=== PATIENT | male | born 1935 | race Caucasian/White ===

== ENCOUNTER 2018-08-24 17:37 | Inpatient (IN) | payer MEDICARE ==
[~2018-08-24] VITALS: Ht 182.9 cm; Wt 44.4 kg
--- NOTE | ~2018-08-24 | CN ---
PATIENT NAME:HARRY GOLDSMITH MEDICAL RECORD: [id number] : 39 LOCATION:. D.0 ADMIT DATE: 08/25/18 ACCOUNT: [id number] CONSULTING PHYSICIAN: FROILAN MCBRIDE MD REFERRING PHYSICIAN: ALFONSO LOTT MD DATE OF CONSULTATION: 08/25/2018 DIAGNOSES: 1. Syncope. 2. Bronchitis/pneumonia. 3. Shortness of breath. 4. Paroxysmal atrial fibrillation. 5. Sick sinus syndrome, status post pacemaker. 6. Coronary artery disease and previous cardiac stent. 7. Valvular heart disease, aortic stenosis. 8. Hypertension. 9. Hyperlipidemia. HISTORY OF PRESENT ILLNESS: Mr. Goldsmith is well known to us. It appears that yesterday he went to a walk-in clinic for a bronchitis. When he got home, he felt that he could not get out of the car. He was found with a right hemiparesis and right facial droop by his family, this has since resolved. He possibly had an episode of syncope in conjunction with this. His pacemaker was interrogated. He had no dysrhythmias yesterday. Today, he went out of rhythm for atrial fibrillation, but he has not received his sotalol last night or today. His sotalol though generally keeps him in rhythm. He is anticoagulated on Xarelto for the atrial fibrillation as well. He has a history of coronary artery disease, previous coronary stenting, none in the past few years. He is not having any anginal symptomatology. He as well has valvular heart disease with mild aortic stenosis, on the last echo and preserved LV function. PHYSICAL EXAMINATION: GENERAL APPEARANCE: Well-nourished, well-developed, appears stated age. Level of distress, comfortable. PSYCHIATRIC: Mental status, alert, normal affect. Orientation, oriented to time, place and person. EYES: Lids and conjunctiva, noninjected. No discharge, no pallor. ENT: Lips, teeth, gums, normal dentition. Oropharynx, no cyanosis, no pallor. NECK: Carotid arteries, bilateral normal upstroke, no bruits, no thrills. JUGULAR VEINS: No jugular venous pressure or distention. CERVICAL LYMPH NODES: Nontender, nonenlarged. THYROID: Not enlarged. Nontender. No nodules. LUNGS: Respiratory effort, unlabored. CHEST: Normal curvature. No thoracic deformity. No chest wall tenderness. Percussion, resonant. Auscultation, clear. No wheezes, no rales, no rhonchi. CARDIOVASCULAR: Precordial exam, nondisplaced. No heaves or pericardial thrills. Rate and rhythm, regular. Heart sounds, normal S1, normal S2. No S3, no gallop, no rub. Systolic murmur, not heard. Diastolic murmur, not heard. EXTREMITIES: No cyanosis, no edema. Peripheral pulses, full and equal in all extremities, except as noted. No bruits appreciated. ABDOMEN: Soft, nondistended. Normal aorta. No bruit. Nontender. No masses. Liver, nontender, no hepatomegaly. Spleen, nontender, no splenomegaly. MUSCULOSKELETAL: No joint tenderness. No joint swelling. No erythema. NEUROLOGICAL: Normal gait, normal strength, normal tone. SKIN: Warm and dry. CONSULT REPORT [id number] HARRY GOLDSMITH OVERALL IMPRESSION: It sounds like he had a CVA or TIA. It does not sound like this is cardiac in etiology. We will get an echocardiogram to rule out a cardiac source of neurologic emboli. No other cardiac workup or treatment is necessary at this time. TRANSINT:[id number] Voice Confirmation ID: [id number] DOCUMENT ID: [id number] FROILAN MCBRIDE MD at 1859 CC: [id number] DICTATION DATE: 08/25/18 1430 CONTROLS DESIGN ENGINEER: 08/25/18 1459 DIS IN 08/26/18 [place] [id number] [place] [id number]
--- NOTE | ~2018-08-24 | EC ---
PATIENT:HARRY GOLDSMITH DATE OF SERVICE: 08/24/18 SEX: M MEDICAL RECORD: [id number] DATE OF : 39 LOCATION:D.M2 D.211 AGE OF PATIENT: 83 ADMISSION DATE: 08/25/18 REFERRING PHYSICIAN: INTERPRETING PHYSICIAN: FROILAN LEVI MD ECHOCARDIOGRAM REPORT ECHO CHARGES 5 ECHO LIMITED Date: 08/25/18 CLINICAL DIAGNOSIS: CHF ECHOCARDIOGRAPHIC MEASUREMENTS (adult normal given) AC root (d.<3.7cm) cm LV Septum d (<1.2 cm> cm Valve Excursion cm LV Septum (systole) cm Left Atria (s.<4.0cm> 4.6 cm LVPW d(<1.2cm) cm RV (d.<2.3cm) 4.5 cm LVPW (sytole) cm LV diastole(<5.6CM) 4.0 cm MV E-F(>70mm/sec) cm LV systole 3.0 cm LVOT Diameter 1.7 cm MV exc.(>10mm) cm Est.ejection fraction (50-75%) % DOPPLER: LVIT cm/sec A 38.0 cm/sec E 96.0 cm/sec LA cm/sec RVSP 29 mmHg LVOT 101 cm/sec AOP1/2T m/s Asc. Ao 346 cm/sec RVOT cm/sec RA cm/sec PA cm/sec AV Gradient Peak 47.98mmHg AV Mean 24.16mmHg AV Area 1.2 cm MV Gradient Peak 9.14 mmHg MV Mean 2.52 mmHg MV Area cm COMMENTS: Packer Inspector: Tremayne EASTMAN Acoustical Installer: 1 Dr. Levi TAPE# PACS Pericardial Effusion N DATE OF SERVICE: 08/25/2018 ECHOCARDIOGRAM DATE OF SERVICE: 08/25/2018 FINDINGS: 1. Left ventricular chamber size is within normal limits. Left ventricular systolic function is normal. Overall ejection fraction is estimated at 55% to 60%. ECHOCARDIOGRAM REPORT [id number] HARRY GOLDSMITH 2. Left atrium is enlarged at 4.6 cm. Right atrium and right ventricle chamber sizes are as well mildly dilated. 3. Valvular structures: Aortic valve demonstrates moderate calcific aortic stenosis, the valve area calculates 1.2 cm where there is gradient of 48-mm across the valve. The remaining valvular structures have normal structure and motion. 4. Doppler interrogation elsewise reveals auso-wm-egdphyeb mitral regurgitation, mild tricuspid regurgitation, no other valvular insufficiency or stenosis. Pulmonary systolic pressure is estimated at 29 mmHg. 5. There is no evidence of pericardial effusion or left ventricular thrombus. 6. No cardiac source of neurologic emboli. TRANSINT:[id number] Voice Confirmation ID: [id number] DOCUMENT ID: [id number] FROILAN LEVI MD at 1859 CC: [id number] DICTATION DATE: 08/25/18 1433 GYRO MECHANIC: 08/25/18 1456 DIS IN 08/26/18 [facility] [address] [place] [id number]
[~2018-08-24 17:37] MED LIST: ACCUPRIL5 MG PO; BAYER CHEWABLE81 MG PO; BETAPACE 120 M120 MG PO; CARAFATE1 G PO; CRESTOR; DEMADEX20 MG PO; DEXILANT60 MG PO; EPIKLOR20 MEQ PO; FISH OIL 500 MG1 CAP PO; GLUCOPHAGE1000 MG PO; GLUCOTROL 5 MG T5 MG PO; IMDUR30 MG PO; K-TAB10 MEQ PO; LIPITOR10 MG PO; NEURONTIN 300300 MG PO; NORCO 10/325 TA1 TA1 PO; PLAVIX75 MG PO; RED YEAST RICE600 MG PO; SAW PALMETTO450 MG PO; TOPROL XL25 MG PO; XARELTO20 MG
[2018-08-24 18:22] LABS: BASOPHILS 0.3 % (0-2); EOSINOPHILS 0.5 % (0-7); HEMATOCRIT 37.7 % (42.0-54.0); HEMOGLOBIN 12.9 g/dL (13.5-17.5); IMMATURE GRANULOCYTES 0.2 % (0-5); LYMPHOCYTES 14.8 % (15-50); MCH 30.1 pg (26.0-34.0); MCHC 34.2 g/dL (31.0-37.0); MCV 88.1 fL (80.0-100.0); MEAN PLATELET VOLUME 10.4 fL (7.4-10.4); NEUTROPHILS 72.2 % (40-80); PLATELET COUNT 121 10x3/uL (130-400); RBC 4.28 10x6/uL (4.20-6.10); RDW 13.4 % (11.5-14.5); WBC 6.6 10x3/uL (4.8-10.8)
[2018-08-24 18:32] LABS: ALBUMIN 3.7 g/dL (3.4-5.0); ALKALINE PHOSPHATASE 171 U/L (46-116); ALT (SGPT) 26 U/L (10-68); BILIRUBIN - TOTAL 1.16 mg/dL (0.2-1.3); CALC OSMOLALITY 269 mosm/kg (275-300); CALCIUM 9.1 mg/dL (8.5-10.1); CARBON DIOXIDE 24.7 mmol/L (21.0-32.0); CHLORIDE - SERUM 98 mmol/L (98-107); CREATININE - SERUM 1.3 mg/dL (0.6-1.3); GLUCOSE 179 mg/dL (74-106); POTASSIUM - SERUM 4.1 mmol/L (3.5-5.1); PROTEIN - SERUM 7.5 g/dL (6.4-8.2); SODIUM 132 mmol/L (136-145); UREA NITROGEN 14 mg/dL (7-18); eGFR NON AFRICAN AMERICAN 56 mL/min (90-120)
[2018-08-24 18:42] LABS: AMYLASE - SERUM 41 U/L (25-115); CKMB 0.7 U/L (0.0-3.6); CREATINE KINASE 84 UL (21-232); LIPASE 123 U/L (73-393); TROPONIN-I 0.019 ng/mL (0.000-0.060)
[2018-08-24 19:05] LABS: APPEARANCE CLEAR (CLEAR); BILIRUBIN NEGATIVE (NEGATIVE); COLOR DK YELLOW (YELLOW); GLUCOSE 50 mg/dL (NEGATIVE); KETONE SMALL mg/dL (NEGATIVE); NITRITE NEGATIVE (NEGATIVE); PROTEIN TRACE mg/dL (NEGATIVE); UROBILINOGEN NORMAL (NORMAL)
[2018-08-24 19:14] LABS: BACTERIA FEW /hpf (NONE SEEN); EPITHELIAL CELLS OCC /hpf (0-5); HYALINE CAST RARE /lpf (NONE SEEN); MUCUS <1+ /lpf (NONE SEEN); RED CELLS - URINE 0-5 /hpf (0-5); WHITE CELLS - URINE 0-5 /hpf (0-5)
[2018-08-24] MEDS ORDERED: CRESTOR5 MG PO (20:35)
[2018-08-24 20:36] VITALS: BP 157/69; BMI 35.3
[2018-08-24 23:12] VITALS: BP 148/70
[2018-08-25 00:11] LABS: TROPONIN-I 0.025 ng/mL (0.000-0.060)
[2018-08-25 04:00] VITALS: BP 135/68
[2018-08-25 07:12] LABS: CKMB 2.7 U/L (0.0-3.6)
[2018-08-25 07:15] LABS: CREATINE KINASE 251 UL (21-232); TROPONIN-I < 0.017 ng/mL (0.000-0.060)
[2018-08-25 08:00] VITALS: BP 147/74
[2018-08-25 08:25] LABS: CKMB 3.1 U/L (0.0-3.6); CREATINE KINASE 228 UL (21-232)
[2018-08-25 08:29] LABS: TROPONIN-I < 0.017 ng/mL (0.000-0.060)
[2018-08-25 10:07] LABS: HEMATOCRIT 41.1 % (42.0-54.0); HEMOGLOBIN 14.1 g/dL (13.5-17.5); MCH 30.2 pg (26.0-34.0); MCHC 34.3 g/dL (31.0-37.0); MEAN PLATELET VOLUME 10.9 fL (7.4-10.4); PLATELET COUNT 129 10x3/uL (130-400); RBC 4.67 10x6/uL (4.20-6.10); RDW 13.5 % (11.5-14.5); WBC 5.8 10x3/uL (4.8-10.8)
[2018-08-25 10:11] LABS: % SATURATION 8 % (15-55); IRON 32 ug/dl (35-150); TOTAL IRON BIND CAPACITY 363 ug/dl (260-445); UNSAT IRON BIND CAPACITY 331 ug/dl (150-375)
[2018-08-25 10:22] LABS: ANION GAP 18.3 mmol/L (8-16); CALCIUM 9.3 mg/dL (8.5-10.1); CARBON DIOXIDE 22.7 mmol/L (21.0-32.0); CREATININE - SERUM 1.4 mg/dL (0.6-1.3)
[2018-08-25 10:40] LABS: LYMPHOCYTES 4 % (15-50); MONOCYTES 2 % (2-11); NEUTROPHILS 93 % (40-80)
[2018-08-25 10:41] LABS: PLATELET ESTIMATE NORMAL; ROULEAUX 1+
[2018-08-25 12:00] VITALS: BP 139/74
[2018-08-25 14:11] VITALS: Ht 182.9 cm; Wt 44.4 kg
[2018-08-25 14:13] LABS: CKMB 4.3 U/L (0.0-3.6)
[2018-08-25 14:15] LABS: CREATINE KINASE 330 UL (21-232); TROPONIN-I < 0.017 ng/mL (0.000-0.060)
[2018-08-25 16:56] VITALS: BP 138/65
[2018-08-25] MEDS ORDERED: BETAPACE 80 MG80 MG PO (19:01)
[2018-08-25 20:02] LABS: CKMB 6.7 U/L (0.0-3.6); CREATINE KINASE 499 UL (21-232); TROPONIN-I < 0.017 ng/mL (0.000-0.060)
[2018-08-26 05:48] VITALS: BP 125/60
[2018-08-26 05:54] LABS: BASOPHILS 0 % (0-2); EOSINOPHILS 0 % (0-7); HEMATOCRIT 39.9 % (42.0-54.0); HEMOGLOBIN 13.7 g/dL (13.5-17.5); IMMATURE GRANULOCYTES 0.2 % (0-5); LYMPHOCYTES 6.3 % (15-50); MCH 29.8 pg (26.0-34.0); MCHC 34.3 g/dL (31.0-37.0); MCV 86.9 fL (80.0-100.0); MEAN PLATELET VOLUME 10.3 fL (7.4-10.4); MONOCYTES 5.6 % (2-11); NEUTROPHILS 87.9 % (40-80); PLATELET COUNT 137 10x3/uL (130-400); RBC 4.59 10x6/uL (4.20-6.10); RDW 13.3 % (11.5-14.5); WBC 12.6 10x3/uL (4.8-10.8)
[2018-08-26 06:08] LABS: ANION GAP 11.6 mmol/L (8-16); CALCIUM 9.4 mg/dL (8.5-10.1); CARBON DIOXIDE 28.5 mmol/L (21.0-32.0); CREATININE - SERUM 1.4 mg/dL (0.6-1.3); POTASSIUM - SERUM 4.1 mmol/L (3.5-5.1)
[2018-08-26 08:16] LABS: FOLATE (FOLIC ACID) - SERUM 9.6 ng/mL (>3.0)
[2018-08-26] MEDS ORDERED: LEVAQUIN250 MG PO (14:30)
== END 2018-08-26 17:22 | disposition home or self-care (01) | DRG 306 ==
LOC: D.ER 17:37 → D.M3 19:24 → D.EDHOLD 19:24 → OBSVTIME 19:24 → D.M3 19:31 → D.M2 08-25 20:00
PROVIDERS: Family Medicine; Internal Medicine Nephrology
DX: I35.0 Nonrheumatic aortic (valve) stenosis (principal); J18.9 Pneumonia, unspecified organism; E87.1 Hypo-osmolality and hyponatremia; J40 Bronchitis, not specified as acute or chronic; D69.6 Thrombocytopenia, unspecified; I48.0 Paroxysmal atrial fibrillation; I25.10 Atherosclerotic heart disease of native coronary artery without angina pectoris; I10 Essential (primary) hypertension; E78.5 Hyperlipidemia, unspecified; Z95.0 Presence of cardiac pacemaker; Z95.5 Presence of coronary angioplasty implant and graft

== ENCOUNTER 2018-12-18 14:59 | Observation (INO) | payer MEDICARE ==
[~2018-12-18] VITALS: Ht 182.9 cm; Wt 119.1 kg
--- NOTE | ~2018-12-18 | HEMODYNAMI ---
PATIENT:HARRY GOLDSMITH MEDICAL RECORD: [id number] : 39 LOCATION[facility] [facility] [id number] ADMISSION DATE: 12/18/18 Generatedon:12/19/20188:55 Patient name: HRARY GOLDSMITH Patient #: [id number] SSN: : [id number] Date of study: 12/19/2018 Page: Of Hemodynamic Procedure Report Patient Data Patient Demographics Procedure consent was obtained First Name: HARRY Gender: Male Last Name: RUPAL : 1935 [facility] Initial: L Age: 83 year(s) Patient #: [id number] Race: Additional ID: [id number] Contact details [address]: [address] [place] [address] State: [place] City: [place] Zip code: [address] Past Medical History Allergies Allergen Reaction Date Comments Reported Other allergy 12/29/2015 Cefazolin Other allergy 12/19/2018 Cefazolin, Niacin Admission Admission Data Admission Date: 12/18/2018 Admission Time: 14:59 Admit Source: Other Room #: D.2113 Lab Results Lab Result Date: 12/19/2018 Lab Result Time: 4:30 Biochemistry Name Units Result Min Max BUN mg/dl 14 --(--*-)-- 7 18 Creatinine mg/dl 1.1 --(--*-)-- 0.6 1.3 CBC Name Units Result Min Max Hematocrit % 36.4 *-(----)-- 42 54 Hemoglobin g/dl 11.6 *-(----)-- 13.5 17.5 Procedure Procedure Types Cath Procedure Diagnostic Procedure LHC LH w/Coronaries Cardioversion External Sedation Charges Moderate Sedation up to 15 minutes Procedure Description Procedure Date Procedure Date: 12/19/2018 Procedure Start Time: 8:42 Procedure End Time: 8:51 Procedure Staff Name Function Gume Levi MD Performing Physician Manny Rodriges RN Nurse Zain Anderson RT Monitor Letitia Chawla RT Scrub Procedure Data Cath Procedure Fluoroscopy Diagnostic fluoroscopy Total fluoroscopy Time: 1.1 time: 1.1 min min Diagnostic fluoroscopy Total fluoroscopy dose: dose: 401.36 mGy 401.36 mGy Contrast Material Contrast Material Type Amount (ml) Isovue 300 81 Entry Location Entry Primary Successful Side Size Upsize Upsize Entry Closure Braden ccessful Closure Location (Fr) 1 (Fr) 2 (Fr) Remarks Device Remarks Radial Right 6 Fr Mechanical artery Short Compression Estimated blood loss: 10 ml Diagnostic catheters Device Type Used For End Catheter Placement DIAGNOSTIC [place] 110cm 5 Procedure Fr catheter ([id number]) Procedure Complications No complications Procedure Medications Medication Administration Route Dosage Oxygen etCO2 Nasal cannula 2 l/min Lidocaine 2% added to field 20 Heparin Flush Bag added to field 2 bags (1000units/500ml NS) 0.9% NaCl I.V. 100 ml/hr Radial Cocktail I.A. 1 syringe (Verapomil 2mg/Nitro 400mcg/Heparin 1500units) Versed I.V. 1 mg Fentanyl I.V. 50 mcg Versed I.V. 1 mg Fentanyl I.V. 50 mcg Versed I.V. 0.5 mg Hemodynamics Rest HGB: 11.6 (g/dl) Heart Rate: 60 (bpm) Pressure Samples Time Site Value (mmHg) Purpose Heart Use Rate(bpm) 8:43 AO 140/74(101) Pullback 63 8:43 LV 173/18,25 Pullback 63 Gradients Valve Time Site 1 Site 2 Mean SEP/DFP Peak To Heart Use (mmHg) (sec/min) Peak Rate (mmHg) (bpm) Aortic 8:43 LV AO 37 19 33 63 173/18,25 140/74(101) Calculations Valve P-P Mean Valve Index Valve Source Name Gradient Area Flow (cm2) Aortic 33 37 33 37 Snapshots Pre Cath Intra NCS Post Cath Vital Signs Time Heart Resp SPO2 etCO2 NIBP (mmHg) Rhythm Pain Sedation Rate (ipm) (%) (mmHg) Status Level (bpm) 8:25:04 60 23 97 0 153/85(131) A-Fib 0 (11) 10(A) , No pain 8:29:28 60 23 94 0 150/81(126) A-Fib 0 (11) 10(A) , No pain 8:33:49 63 21 93 0 139/79(113) A-Fib 0 (11) 10(A) , No pain 8:38:09 63 20 95 0 145/82(121) A-Fib 0 (11) 9(A) , No pain 8:43:32 59 19 96 0 170/83(108) A-Fib 0 (11) 9(A) , No pain 8:48:05 58 17 94 0 138/80(108) NSR 0 (11) 9(A) , No pain 8:52:45 60 15 93 0 144/82(123) NSR 0 (11) 10(A) , No pain Medications Time Medication Route Dose Verified Delivered Reason Notes Effectiveness by by 8:24:00 Oxygen etCO2 2 l/min Gume Buffie used for Nasal Gurmeet Rodriges RN procedure cannula 8:24:09 Lidocaine 2% added 20ml Gumegeeta Dunaway for local to vial Gurmeet Levi MD anesthetic field 8:24:16 Heparin Flush added 2 bags Gume Dunaway used for Bag to Gurmeet Levi MD procedure (1000units/500ml field NS) 8:24:25 0.9% NaCl I.V. 100 Gumegeeta Bryant Per ml/hr Gurmeet Rodriges RN physician 8:28:24 Versed I.V. 1 mg Gume Turnerie for sedation Gurmeet Rodriges RN 8:28:30 Fentanyl I.V. 50 mcg Gume Turnerie for sedation Gurmeet Rodriges RN 8:42:30 Radial Cocktail I.A. 1 Gume Gume for (Verapomil syringe Gurmeet Levi MD vasodilation 2mg/Nitro 400mcg/Heparin 1500units) 8:42:35 Versed I.V. 1 mg Gume Turnerie for sedation Gurmeet Rodriges RN 8:42:39 Fentanyl I.V. 50 mcg Gume Turnerie for sedation Gurmeet Rodriges RN 8:45:30 Versed I.V. 0.5 mg Gume Buffie for sedation Gurmeet Rodriges RN Procedure Log Time Note 7:55:14 Informed consent obtained and on chart 7:55:17 Admit Source: Other 7:55:36 Diagnostic Cath status Elective 7:55:37 Time tracking: Regular hours (M-F 7:00 - 5:00) 7:55:41 Plan of Care:Hemodynamics will remain stable., Cardiac rhythm will remain stable., Comfort level will be maintained., Respiratory function will remain adequate., Patient/ family verbilizes understanding of procedure., Procedure tolerated without complication., Recovers from procedure without complications.. 7:55:49 H&P Date Dictated: 12/18/2018 Within 30 days and on chart.. 7:56:22 Lab Result : BUN 14 mg/dl 7:56:22 Lab Result : Creatinine 1.1 mg/dl 7:56:22 Lab Result : Hemoglobin 11.6 g/dl 7:56:22 Lab Result : Hematocrit 36.4 % 7:56:25 Lab results completed and on chart. 7:59:34 Manny Rodriges RN sent for patient. Start room use. 8:09:08 Patient received from Med II to CCL 3 Alert and oriented. Tansferred to table in Supine position. 8:09:09 Warm blankets applied, and shayan hugger turned on for patient comfort. 8:09:10 Correct patient and procedure confirmed by team. 8:09:12 ECG and BP/O2 sat monitors applied to patient. 8:23:49 Vital chart was started 8:24:00 Oxygen 2 l/min etCO2 Nasal cannula was administered by Manny Rodriges RN; used for procedure; 8:24:09 Lidocaine 2% 20ml vial added to field was administered by Gume Levi MD; for local anesthetic; 8:24:16 Heparin Flush Bag (1000units/500ml NS) 2 bags added to field was administered by Gume Levi MD; used for procedure; 8:24:25 0.9% NaCl 100 ml/hr I.V. was administered by Manny Rodriges RN; Per physician; 8:25:02 Baseline sample Acquired. 8:25:06 Rhythm: sinus rhythm , paced 8:25:09 Full Disclosure recording started 8:25:10 Pt voided 280 ml of urine to urinal without difficulty. 8:25:15 Pre-procedure instructions explained to patient. 8:25:16 Pre-op teaching completed and patient verbalized understanding. 8:25:19 Family in patients room. 8:25:29 Patient NPO since Midnight. 8:26:03 Patient allergic to Other allergyCefazolin, Niacin 8:26:05 Is the patient allergic to Iodine/contrast media? No. 8:26:19 Is patient on blood thinner?Yes 8:26:23 ACC The patient was administered the following blood thiners within the last 24 hours: Xarelto 8:26:25 Patient diabetic? Yes. 8:26:26 If diabetic: On Metformin? No 8:26:28 Previous problem with sedation/anesthesia? No ? 8:26:30 Snore? Yes 8:26:30 Sleep apnea? Yes 8:26:31 Deviated septum? No 8:26:31 Opens mouth fully? Yes 8:26:32 Sticks out tongue? Yes 8:26:36 Airway obstruction? No ? 8:26:45 Dentures? No lost teeth 8:26:48 Modified Ron's test Ulnar < 7 seconds 8:26:49 Patient pain scale 0/10 ?. 8:26:55 IV patent on arrival in right forearm with 0.9% NaCl at [facility]. 8:26:58 Right Radial & Right Groin area was prepped with chlora-prep and draped in sterile fashion 8:26:59 Alarms reviewed by R. N. 8:26:59 Sharps counted by scrub and verified by R.N. 8:27:01 Use device set Radial Dx or PCI 8:27:02 ACIST Syringe (29321) opened to sterile field. 8:27:03 Medline Cath Pack ([id number]) opened to sterile field. 8:27:03 Bag Decanter (2002S) opened to sterile field. 8:27:04 ACIST Hand Control (55038) opened to sterile field. 8:27:04 ACIST Manifold (71263) opened to sterile field. 8:27:05 Tegaderm 4 x 4 (1626W) opened to sterile field. 8:27:05 MBrace Wrist Support ([id number]) opened to sterile field. 8:27:07 DIAGNOSTIC WIRE .035 260cm J wire (754788) opened to sterile field. 8:27:16 SHEATH 6FR RAIN ([id number]) NO COST SUPPLY opened to sterile field. 8:27:35 Quick Combo opened to sterile field. 8:27:43 Quick combo pads placed on patients chest and back. 8:27:49 Physician arrived 8:27:49 --------ALL STOP TIME OUT------ 8:27:50 Final Timeout: patient, procedure, and site verified with staff and physician. All members of the team are in agreement. 8:27:51 Right Radial & Right Groin site verified by team. 8:27:58 Physical assessment completed. ASA score P 3 - A patient with severe systemic disease as per Gume Levi MD. 8:28:01 Sedation plan: IV Moderate Sedation Medication:Versed, Fentanyl 8:28:24 Versed 1 mg I.V. was administered by Manny Rodriges RN; for sedation; 8:28:30 Fentanyl 50 mcg I.V. was administered by Manny Rodriges RN; for sedation; 8:31:33 Zero performed for pressure channel P1 8:40:14 [employer]onic sales representative sales manager symone moran present for procedure. 8:42:11 Procedure started. 8:42:14 Local anesthetic to right radial artery with Lidocaine 2% by Gume Levi MD.INITIAL ACCESS ONLY 8:42:24 A 6 Fr Short sheath was inserted into the Right Radial artery 8:42:30 Radial Cocktail (Verapomil 2mg/Nitro 400mcg/Heparin 1500units) 1 syringe I.A. was administered by Gume Levi MD; for vasodilation; 8:42:34 A DIAGNOSTIC [place] 110cm 5 Fr catheter (740294) was advanced over the wire and used for Procedure. 8:42:35 Versed 1 mg I.V. was administered by Manny Rodriges RN; for sedation; 8:42:39 Fentanyl 50 mcg I.V. was administered by Manny Rodriges RN; for sedation; 8:43:06 LV gram done using PATINO 8:43:09 Injector settings: Ml/sec: 5, Volume: 15, 8:43:15 LV hemodynamics recorded. 8:43:26 EF : 55 % 8:43:37 LCA angiography performed. 8:45:08 RCA angiography performed. 8:45:30 Catheter removed. 8:45:30 Versed 0.5 mg I.V. was administered by Manny Rodriges RN; for sedation; 8:46:53 Defibrillator synced and charged to 360 Joules. 8:47:02 Shock delivered. 8:47:29 Patient cardioverted to sinus rhythm , paced. 8:48:45 TR BAND Large ([id number]) opened to sterile field. 8:49:01 Sheath removed intact; hemostasis achieved with Mechanical Compression to the Right Radial artery. 8:49:02 Procedure ended.(Physican Out) 8:50:06 Fluoroscopy time 01.10 minutes. 8:50:12 Fluoroscopy dose: 401.36 mGy 8:50:12 Flurop Dose total: 401.36 8:50:17 Contrast amount:Isovue 300 81ml. 8:50:19 Sharps counted by scrub and verified by R.N. 8:50:21 TR band inflated with 12cc of air. 8:50:23 Insertion/operative site no bleeding no hematoma. 8:50:35 Post right radial artery:stable, soft, clean and dry 8:50:36 Post Procedure Pulses reassessed and unchanged 8:50:39 Post-procedure physical assessment completed. ASA score P 3 - A patient with severe systemic disease as per Gume Levi MD. 8:50:43 Post procedure rhythm: sinus rhythm , paced 8:50:49 Estimated blood loss: 10 ml 8:50:50 Post procedure instruction explained to patient.Patient verbalizes understanding. 8:50:50 Patient needs reinforcement of post procedure teaching. 8:51:07 Procedure type changed to Cath procedure, Diagnostic procedure, LHC, LHC w/Coronaries, Cardioversion External, Sedation Charges, Moderate Sedation up to 15 minutes 8:51:25 Procedure and supply charges have been captured, reviewed, submitted and are correct. 8:51:27 Procedure Complication : No complications 8:51:29 Vital chart was stopped 8:51:29 See physician's report for complete and final results. 8:51:31 Report given to PCU. 8:51:33 Patient transfered to PCU with Stretcher. 8:51:37 Procedure ended. 8:51:37 Full Disclosure recording stopped 8:51:44 End room use (Document Last) Device Usage Item Name Manufacture Quantity Catalog Hospital Part Current Minima l Lot# / Number Charge Number Stock Stock Serial# Code ACIST Acist 1 71037 033191 030483 [id number] 20 Syringe Medical (01720) Systems Inc Medline Medline 1 [id number] 406469 65718 291071 5 Cath Pack ([id number]) Bag Microtek 1 476773 70125 916934 5 Decanter Medical Inc. () ACIST Hand Acist 1 14045 659871 885165 003673 5 Control Medical (04085) Systems Inc ACIST Acist 1 07814 851787 735270 946253 5 Manifold Medical (08555) Systems Inc Tegaderm 4 3M 1 1626W 991796 658719 048631 5 x 4 (1626W) MBrace Advanced 1 140-0250-00 244549 89343 471223 5 Wrist Vascular Support Dynamics ([id number]) DIAGNOSTIC [place] 1 906469 777322 776340 916786 30 WIRE .035 260cm J wire (605855) SHEATH 6FR [place] 1 0607263 335319 546656 5 [facility] (1547803) NO COST SUPPLY Quick B-Obviouso RelayFoods Systems 1 94971-291359 919491 360787 641282 5 DIAGNOSTIC Terumo 1 87-3806 790056 754812 407234 5 [place] 110cm 5 Fr catheter (035701) TR BAND Terumo 1 XVA43-CSN 411950 288528 808177 40 Large ([id number]) Signature Audit [place] Stage Time Signature Unsigned Intra-Procedure 12/19/2018 Zain Anderson 8:55:18 AM RT(R) Signatures Monitor : Zain Anderson RT Signature : Date : Time : [address] [address]
[~2018-12-18 14:59] MED LIST changes: +BETAPACE 80 MG80 MG PO; +CRESTOR5 MG PO; +LEVAQUIN250 MG PO; -XARELTO20 MG; +XARELTO20 MG PO
--- NOTE | 2018-12-18 16:30 | NUR ---
RECEIVED PT TO ROOM 2112 VIA WHEELCHAIR, PT TRANSFERED FROM CHAIR TO BED, WITH ASSISTANCE, ORIENTED PT TO ROOM AND CALL LIGHT, WILL ASSESS PT AND START PLAN OF CARE.
--- NOTE | 2018-12-18 17:24 | NUR ---
NEW 20G IV STARTED TO RT FA X1 STICK. CONSENTS FOR HEART CATH AND CARDIOVERSION SIGNED BY PT AND PLACED ON CHART, INFORMED PT THAT HE NEEDS TO BE NPO AFTER MIDNIGHT.
[2018-12-18 17:30] VITALS: BP 168/81; Ht 182.9 cm; Wt 119.1 kg
[2018-12-18 18:15] LABS: BASOPHILS 0.4 % (0-2); EOSINOPHILS 2.8 % (0-7); HEMATOCRIT 37.2 % (42.0-54.0); IMMATURE GRANULOCYTES 0.2 % (0-5); LYMPHOCYTES 22.7 % (15-50); MCH 29.9 pg (26.0-34.0); MCHC 32.3 g/dL (31.0-37.0); MCV 92.5 fL (80.0-100.0); MEAN PLATELET VOLUME 10.1 fL (7.4-10.4); MONOCYTES 14.7 % (2-11); NEUTROPHILS 59.2 % (40-80); PLATELET COUNT 146 10x3/uL (130-400); RBC 4.02 10x6/uL (4.20-6.10); RDW 13.7 % (11.5-14.5)
[2018-12-18 18:33] LABS: INR 1.28 (0.85-1.17); PROTIME 15.5 SECONDS (11.6-15.0)
[2018-12-18 18:53] LABS: ANION GAP 13.2 mmol/L (8-16); CALCIUM 8.8 mg/dL (8.5-10.1); CARBON DIOXIDE 29.8 mmol/L (21.0-32.0); CREATININE - SERUM 1.3 mg/dL (0.6-1.3)
--- NOTE | 2018-12-18 19:30 | NUR ---
RESUMING PATIENT CARE. PATIENT IS ALERT AND ORIENTED. RESTING COMFORTABLY IN BED. PATIENT REMAINS ON 2L NC. RESPIRATIONS ARE EVEN AND UNLABORED. NO S/S OF DISTRESS. NO C/O PAIN. CALL LIGHT WITHIN REACH. FAMILY AT BEDSIDE. WILL CPOC.
[2018-12-18 20:00] VITALS: BP 150/74
[2018-12-19 00:30] VITALS: BP 136/71
--- NOTE | 2018-12-19 02:09 | NUR ---
PATIENT RESTING COMFORTABLY IN BED. PATIENT WEARING HOME CPAP. RESPIRATIONS ARE EVEN AND UNLABORED. NO S/S OF DISTRESS. NO C/O PAIN. CALL LIGHT WITHIN REACH. WILL CPOC.
[2018-12-19 04:00] VITALS: BP 152/60
[2018-12-19 05:15] LABS: BASOPHILS 0.5 % (0-2); EOSINOPHILS 3.4 % (0-7); HEMATOCRIT 36.4 % (42.0-54.0); HEMOGLOBIN 11.6 g/dL (13.5-17.5); IMMATURE GRANULOCYTES 0.3 % (0-5); LYMPHOCYTES 21.5 % (15-50); MCH 29.4 pg (26.0-34.0); MCHC 31.9 g/dL (31.0-37.0); MCV 92.2 fL (80.0-100.0); MEAN PLATELET VOLUME 10.7 fL (7.4-10.4); NEUTROPHILS 59.3 % (40-80); PLATELET COUNT 144 10x3/uL (130-400); RBC 3.95 10x6/uL (4.20-6.10); RDW 13.6 % (11.5-14.5); WBC 3.9 10x3/uL (4.8-10.8)
[2018-12-19 05:34] LABS: ALBUMIN 3.1 g/dL (3.4-5.0); ANION GAP 11.5 mmol/L (8-16); BILIRUBIN - TOTAL 1.09 mg/dL (0.2-1.3); CALCIUM 8.6 mg/dL (8.5-10.1); CARBON DIOXIDE 32.9 mmol/L (21.0-32.0); CREATININE - SERUM 1.1 mg/dL (0.6-1.3); POTASSIUM - SERUM 3.4 mmol/L (3.5-5.1); PROTEIN - SERUM 6.4 g/dL (6.4-8.2)
--- NOTE | 2018-12-19 07:53 | NUR ---
AM ROUNDS COMPLETED. INTRODUCED MYSELF TO PT PRIMARY RN FOR TODAYS SHIFT. PT IS A&O SITTING UP IN BED RESTING QUIETLY WITH FAMILY AT BEDSIDE. SHIFT ASSESSMENT COMPLETED. PT IS NPO FOR CLIENT SUPPORT ASSOCIATE PROCEDURE AND VERBALIZED UNDERSTANDING. CATH TEAM CALLED TO PRE-OP. PRE-OP MEDICATIONS GIVEN AND PT IS SITTNIG ON EDGE OF BED COMPLETELY READY TO GO. NO FURTHER NEEDS AT THIS TIME. WILL CPOC.
--- NOTE | 2018-12-19 08:14 | NUR ---
CATH TEAM HERE TO TAKE PT NOW. NO FURTHER NEEDS.
--- NOTE | 2018-12-19 09:27 | NUR ---
PT BACK FROM PROCEDURE AWAKE A&O SITTING UP IN BED. CONNECTED PT TO HIS NS FLUIDS ORDERED. PLACED PT BACK ON TELEMETRY AND HE IS RUNNING PACED 63 ON THE MONITER NO FURTHER ATRIAL FIB. PT HAS A TR BAND TO HIS R.WRIST CDI NO S/S OF HEMATOMA OR BLEEDING NOTED. VSS AND BEING MONITERED PER POST PROCEDURE POLICY. PERIPHERAL PULSES INTACT. FAMILY AT BEDSIDE WAITING TO SEE NO FURTHER NEEDS AT THIS TIME. WILL CPOC.
--- NOTE | 2018-12-19 10:23 | DS ---
PATIENT:HARRY GOLDSMITH :39 MEDICAL RECORD: [id number] DISCHARGE SUMMARY ADMISSION DATE: 12/18/18 DISCHARGE DATE: DISCHARGE DIAGNOSES: 1. DC cardioversion. 2. Shortness of breath, dyspnea on exertion. 3. Angina. 4. Coronary artery disease. 5. Aortic stenosis. 6. Atrial fibrillation. 7. Sick sinus syndrome, status post pacemaker. 8. Hyperlipidemia. HOSPITAL COURSE: Mr. Goldsmith presents with shortness of breath, dyspnea on exertion, and angina; however, cardiac catheterization revealed wide patency of the previously placed stents, no new disease. He did undergo successful DC cardioversion, discharged home with no change in his medications. He will follow up with [facility] in 1 month. If he remains markedly short of breath, we will consider for TAVR aortic valve replacement. TRANSINT:[id number] Voice Confirmation ID: [id number] DOCUMENT ID: [id number] FROILAN MCBRIDE MD at 1023 CC: [id number] DICTATION DATE: 12/19/1855 APPRENTICE EMBALMER: 12/19/18 0920 ADM IN [facility] [address] [place] [address]
--- NOTE | 2018-12-19 10:23 | HP ---
PATIENT: HARRY GOLDSMITH MEDICAL RECORD: [id number] ACCOUNT: [id number] LOCATION:[address] : [birth year] ADMISSION DATE: 12/18/18 PCP: SARA CHARLES DO HISTORY AND PHYSICAL EXAMINATION DATE OF SERVICE: 12/18/2018 DIAGNOSES: 1. Shortness of breath, dyspnea on exertion. 2. Angina. 3. Coronary artery disease. 4. Previous percutaneous transluminal coronary angioplasty stent. 5. Aortic stenosis. 6. Atrial fibrillation. 7. Sick sinus syndrome, status post pacemaker. 8. Hyperlipidemia. HISTORY OF PRESENT ILLNESS: Mr. Goldsmith presents with increasing shortness of breath, dyspnea on exertion to the point where he cannot even walk across the room without being markedly short of breath. He is having some chest pressure. He does have a history of cardiac stenting. His pacemaker was interrogated today. He is noted to be in atrial fibrillation. He has a history of atrial fibrillation, is on sotalol and Xarelto. He does have aortic stenosis as well. He is not an operative candidate. He has not been evaluated for TAVR. PHYSICAL EXAMINATION: GENERAL APPEARANCE: Well-nourished, well-developed, appears stated age. Level of distress, comfortable. PSYCHIATRIC: Mental status, alert, normal affect. Orientation, oriented to time, place and person. EYES: Lids and conjunctiva, noninjected. No discharge, no pallor. ENT: Lips, teeth, gums, normal dentition. Oropharynx, no cyanosis, no pallor. NECK: Carotid arteries, bilateral normal upstroke, no bruits, no thrills. JUGULAR VEINS: No jugular venous pressure or distention. CERVICAL LYMPH NODES: Nontender, nonenlarged. THYROID: Not enlarged. Nontender. No nodules. LUNGS: Respiratory effort, unlabored. CHEST: Normal curvature. No thoracic deformity. No chest wall tenderness. Percussion, resonant. Auscultation, clear. No wheezes, no rales, no rhonchi. CARDIOVASCULAR: Precordial exam, nondisplaced. No heaves or pericardial thrills. Rate and rhythm, regular. Heart sounds, normal S1, normal S2. No S3, no gallop, no rub. Systolic murmur, not heard. Diastolic murmur, not heard. EXTREMITIES: No cyanosis, no edema. Peripheral pulses, full and equal in all extremities, except as noted. No bruits appreciated. ABDOMEN: Soft, nondistended. Normal aorta. No bruit. Nontender. No masses. Liver, nontender, no hepatomegaly. Spleen, nontender, no splenomegaly. MUSCULOSKELETAL: No joint tenderness. No joint swelling. No erythema. NEUROLOGICAL: Normal gait, normal strength, normal tone. SKIN: Warm and dry. OVERALL IMPRESSION: Atrial fibrillation with shortness of breath, dyspnea on exertion, angina. We will proceed with coronary angiography, DC cardioversion. If he still remains markedly short of breath after this, would evaluate for TAVR aortic valve replacement. HISTORY AND PHYSICAL [id number] HARRY GOLDSMITH TRANSINT:[id number] Voice Confirmation ID: [id number] DOCUMENT ID: [id number] FROILAN MCBRIDE MD at 1023 CC: [id number] DICTATION DATE: 12/19/18 0854 TECH ED/WOODSHOP TEACHER: 12/19/18 0912 ADM IN [facility] [address] [id number]
--- NOTE | 2018-12-19 10:23 | OP ---
PATIENT NAME: HARRY GOLDSMITH MEDICAL RECORD: [id number] :39 LOCATION:D.M2 D.2113 ADMISSION DATE:12/18/18 SURGEON: FROILAN MCBRIDE MD DATE OF OPERATION: 12/19/2018 PROCEDURES: 1. DC cardioversion. 2. Pacemaker interrogation. 3. Left heart catheterization. 4. Selective coronary angiography. 5. Left ventriculogram. INDICATIONS: Shortness of breath, dyspnea on exertion, angina, coronary artery disease, atrial fibrillation. PROCEDURE IN DETAIL: After informed consent was obtained and after detailed explanation of risks, benefits as well as alternative therapies, the patient elected to proceed with angiogram, heart catheterization, and cardioversion. The right radial area was prepped and draped in normal sterile fashion. Right radial artery was cannulated via modified Seldinger technique with placement of 6-[place] Islander sheath. All catheters exchanged through this sheath. FINDINGS: Left ventriculogram was performed in a standard 30-degree PATINO view, reveals good cardiac wall motion throughout all segments. Overall ejection fraction estimated at 55%. SELECTIVE CORONARY ANGIOGRAPHY: 1. Left main is with no significant angiographic disease. 2. Left anterior descending has previously placed stents. These are widely patent with no significant restenosis. No disease elsewise throughout the LAD or its branches. 3. Left circumflex has mild irregularities, but no flow-limiting stenosis. 4. Right coronary has mild irregularities, but no flow-limiting stenosis. Pacemaker was interrogated. He was found to be in atrial fibrillation. He underwent cardioversion at 360 joules restoring sinus rhythm, confirmed by repeat pacemaker interrogation. OVERALL IMPRESSION: Successful DC cardioversion from atrial fibrillation to normal sinus rhythm. TRANSINT:[id number] Voice Confirmation ID: [id number] DOCUMENT ID: [id number] FROILAN MCBRIDE MD at 1023 CC: [id number] DICTATION DATE: 12/19/18 0857 OVERSEAMER: 12/19/18 0928 ADM IN [place] [id number] [place] [id number]
--- NOTE | 2018-12-19 10:34 | NUR ---
PT SITTING UP IN BED RESTING QUIETLY WITH FAMILY AT BEDSIDE. RR NONLABORED ON RA. VSS AND BEING MONITERED PER POST PROCEDURE POLICY. R.WRIST TR BAND REMAINS CDI NO S/S OF HEMATOMA OR BLEEDING NOTED. CL IN REACH, WILL CTM.
--- NOTE | 2018-12-19 11:32 | NUR ---
REMOVED 4CC OF AIR FROM R.TR BAND. TR BAND STILL CDI NO S/S OF HEMATOMA OR BLEEDING NOTED. VSS AND STILL BEING MONITERED PT REQUESTNIG QUIETLY IN BED. WILL CTM.
--- NOTE | 2018-12-19 12:18 | NUR ---
PT DIDNT GET A LUNCH TRAY AND IS HUNGRY. I ORDERED HIM ONE. REMOVED REMAINING AIR FROM R.WRIST TR BAND. NO S/S OF BLEEDING OR HEMATOMA NOTED, WILL CONTINUE TO MONITER FOR ANY BLEEDING. FAMILY AT BEDSIDE. NO CURRENT NEEDS. WILL CTM.
--- NOTE | 2018-12-19 12:56 | NUR ---
BAND-AID IN PLACE TO R.WRIST AND STILL NO S/S OF HEMATOMA OR BLEEDING NOTED. D/C PTS R.FA PIV WITH CATHETER TIP FULLY INTACT. PT IS EATING LUNCH AND THEN WILL GET DRESSED AND BE READY FOR DISCHARGE PAPERS. DAUGHTER AT BEDSIDE. WILL CTM.
[2018-12-19 13:02] VITALS: BP 148/64
--- NOTE | 2018-12-19 13:49 | NUR ---
DISCHARGE TEACHING PROVIDED AND PAPERS SIGNED. PT VERBALIZED UNDERSTANDING AND DENIES ANY QUESTIONS OR CONCERNS. TELEMETRY RETURNED TO [facility]. PT HAS ALL BELONGINGS AND HIS DAUGHTER IS AT BEDSIDE FOR TRANSPORTATION. NO FURTHER NEEDS. PT WILL BE ESCORTED DOWN TO FRONT LOBBY.
--- NOTE | 2018-12-19 18:37 | EC ---
PATIENT:HARRY GOLDSMITH DATE OF SERVICE: 12/18/18 SEX: M MEDICAL RECORD: [id number] DATE OF : 39 LOCATION:D.M2 D.211 AGE OF PATIENT: 83 ADMISSION DATE: 12/18/18 REFERRING PHYSICIAN: INTERPRETING PHYSICIAN: FROILAN LEVI MD ECHOCARDIOGRAM REPORT ECHO CHARGES 4 ECHO COMPLETE Date: 12/19/18 CLINICAL DIAGNOSIS: EVALUATION ECHOCARDIOGRAPHIC MEASUREMENTS (adult normal given) AC root (d.<3.7cm) 3.0 cm LV Septum d (<1.2 cm> 1.4 cm Valve Excursion 0.9 cm LV Septum (systole) 1.5 cm Left Atria (s.<4.0cm> 3.8 cm LVPW d(<1.2cm) 1.2 cm RV (d.<2.3cm) 3.7 cm LVPW (sytole) 1.4 cm LV diastole(<5.6CM) 5.7 cm MV E-F(>70mm/sec) cm LV systole 4.8 cm LVOT Diameter 1.6 cm MV exc.(>10mm) cm Est.ejection fraction (50-75%) % DOPPLER: LVIT cm/sec A 28 cm/sec E 72 cm/sec LA cm/sec RVSP 27.7 mmHg LVOT 125 cm/sec AOP1/2T m/s Asc. Ao 92 cm/sec RVOT 67 cm/sec RA cm/sec PA 105 cm/sec AV Gradient Peak 3.4 mmHg AV Mean 1.9 mmHg AV Area 2.8 cm MV Gradient Peak 3.3 mmHg MV Mean 1.2 mmHg MV Area cm COMMENTS: Stave Grader: Fred [facility] Client Success Director: 1 Dr. Levi TAPE# PACS Pericardial Effusion N DATE OF SERVICE: FINDINGS: 1. Left ventricular chamber size is within normal limits. Left ventricular systolic function is normal. Overall ejection fraction estimated at 55%. 2. Left atrium is within normal limits at 4.0 cm. Right atrium and right ventricular chamber sizes are mildly dilated. 3. Valvular structures: Aortic valve demonstrates mild calcific aortic stenosis, valve area calculates to greater than 2 cm-squared and there is a gradient of less than 10 mm across the valve. The remaining valvular structures ECHOCARDIOGRAM REPORT [id number] HARRY GOLDSMITH have normal structure and motion. 4. Doppler interrogation reveals mild tricuspid regurgitation, no other valvular insufficiency or stenosis. Pulmonary systolic pressure is normal, estimated at 27 mmHg. 5. No evidence of pericardial effusion or left ventricular thrombus. TRANSINT:[id number] Voice Confirmation ID: [id number] DOCUMENT ID: [id number] FROILAN LEVI MD at 1837 CC: [id number] DICTATION DATE: 12/19/18 1127 PAROLE SUPERVISOR: 12/19/18 1215 DIS IN 12/19/18 [place] [id number] [place] [id number]
--- NOTE | 2018-12-20 08:07 | MORECARE ---
CASE MANAGEMENT DISCHARGE SUMMARY PATIENT: HARRY GOLDSMITH UNIT: [id number] ADM DATE: 12/18/18 AGE: 83 : 37 SEX: M ROOM/BED: D.2113 AUTHOR: KIRSTEN GARCIA PHYSICIAN: REFERRING PHYSICIAN: FROILAN MCBRIDE MD DATE OF SERVICE: 12/20/18 Discharge Plan Patient Name: HARRY GOLDSMITH [facility] [facility] 1935 Planned Disposition: Home Anticipated Discharge Date: 12/19/18 Discharge Date: 12/19/2018 Expected LOS: 1 Initial Reviewer: [email or web address] Initial Review Date: 12/20/2018 Generated: 12/20/18 9:07 am Patient Name: HARRY GOLDSMITH Page [phone] at 0807 All edits/amendments must be made on the electronic document DICTATION DATE: 12/20/18 0807 COOK BOX FILLER: DM 12/20/18 0807 RPT#: [id number] DC DATE:12/19/18 STATUS: DIS IN [facility] [address] [place] [address] END OF REPORT
== END 2018-12-19 14:00 | disposition home or self-care (01) ==
LOC: D.M2 14:59 → OBSVTIME 14:59 → D.M2 12-19 14:00
PROVIDERS: Family Medicine; ADMIT Internal Medicine Interventional Cardiology
DX: I25.119 Atherosclerotic heart disease of native coronary artery with unspecified angina pectoris (principal); I35.0 Nonrheumatic aortic (valve) stenosis; I48.91 Unspecified atrial fibrillation; Z95.0 Presence of cardiac pacemaker; E78.5 Hyperlipidemia, unspecified

== ENCOUNTER 2019-01-16 12:55 | Inpatient (IN) | payer MEDICARE ==
[~2019-01-16] VITALS: Ht 182.9 cm; Wt 110.9 kg
[2019-01-16] VITALS (7 sets, daily range): BP systolic 124–175; BP diastolic 62–77; BMI 35.3
[2019-01-16 13:42] LABS: BASOPHILS 0.7 % (0-2); EOSINOPHILS 1.3 % (0-7); HEMATOCRIT 40.8 % (42.0-54.0); IMMATURE GRANULOCYTES 0.2 % (0-5); LYMPHOCYTES 14.6 % (15-50); MCH 29.5 pg (26.0-34.0); MCHC 31.9 g/dL (31.0-37.0); MCV 92.7 fL (80.0-100.0); MEAN PLATELET VOLUME 10.2 fL (7.4-10.4); MONOCYTES 14.7 % (2-11); NEUTROPHILS 68.5 % (40-80); PLATELET COUNT 145 10x3/uL (130-400); RDW 13.5 % (11.5-14.5)
[2019-01-16 13:53] LABS: APTT 43.8 SECONDS (22.8-39.4); INR 1.73 (0.85-1.17); PROTIME 19.6 SECONDS (11.6-15.0)
[2019-01-16 13:55] LABS: ALBUMIN 3.8 g/dL (3.4-5.0); ALKALINE PHOSPHATASE 223 U/L (46-116); ALT (SGPT) 27 U/L (10-68); BILIRUBIN - TOTAL 1.23 mg/dL (0.2-1.3); CALC OSMOLALITY 275 mosm/kg (275-300); CALCIUM 8.8 mg/dL (8.5-10.1); CARBON DIOXIDE 32.5 mmol/L (21.0-32.0); CHLORIDE - SERUM 100 mmol/L (98-107); CREATININE - SERUM 1.2 mg/dL (0.6-1.3); GLUCOSE 165 mg/dL (74-106); POTASSIUM - SERUM 4.4 mmol/L (3.5-5.1); PROTEIN - SERUM 7.8 g/dL (6.4-8.2); SODIUM 136 mmol/L (136-145); UREA NITROGEN 13 mg/dL (7-18); eGFR NON AFRICAN AMERICAN 62 mL/min (90-120)
--- NOTE | 2019-01-16 14:00 | NUR ---
PT'S FAMILY MEMBER NOTIFIED DR. CABALLERO THAT PT BROUGHT HIS PERSONAL CPAP TO THE ED WITH HIM TODAY. PER EDP, DC O2 AT THIS TIME AND HAVE PT APPLY CPAP MACHINE.
[2019-01-16 14:05] LABS: CKMB 1.7 U/L (0.0-3.6); CREATINE KINASE 82 UL (21-232); PRO BNP 1579 pg/mL (0-450); TROPONIN-I 0.017 ng/mL (0.000-0.060)
--- NOTE | 2019-01-16 17:49 | NUR ---
PT OBSERVED SITTING UPRIGHT IN BED, RESPIRATIONS EVEN AND UNLABORED. PT'S PERSONAL CPAP IN PLACE. PT GIVEN AHA DINNER TRAY, CONSUMED APPROX. 50%. FAMILY PRESENT AT THE BEDSIDE, CALL LIGHT IN REACH. PT DENIES ANY NEEDS AT THIS TIME. PT AWARE HE IS BEING ADMITTED TO [facility], AWAITING BED ASSIGNMENT. WILL CONTINUE TO MONITOR.
--- NOTE | 2019-01-16 18:26 | NUR ---
ROOM 2108 ASSIGNED AT 1606 AND MARKED DIRTY. STAT CLEAN ORDERED. THIS NURSE CALLED REPORT TO REA AT 1822. WILL TRANSPORT PT TO ASSIGNED ROOM WHEN CLEAN AND READY FOR PT.
--- NOTE | 2019-01-16 18:56 | NUR ---
ROOM 2108 STILL NOT CLEAN AT THIS TIME. HAND OFF REPORT GIVEN TO ED NURSE JULY CATALAN USING SBAR COMMUNICATION.
--- NOTE | 2019-01-16 19:57 | NUR ---
bed not ready at this time. awake and alert talking with family, bipap in place, pulse ox 98%. no distress.
--- NOTE | 2019-01-16 22:15 | NUR ---
RECIEVED FROM ER VIA ER STAFF V/S WNL , BIPAP @3L, SON @ BEDSIDE CL IN REACH WILL CONT TO MONITOR
[2019-01-17 02:16] VITALS: BP 132/65
[2019-01-17 05:44] VITALS: BP 150/65
--- NOTE | 2019-01-17 07:12 | NUR ---
PT SITTING UP IN BED RESTING COMFORTABLY. DENIES PAIN AT THIS TIME. SON AT BEDSIDE. BIPAP ON WITH 3L. R FORARM IV SL. PACED ON TELE. NO FURTHER CONCERNS AT THIS TIME. BED LOWERED AND LOCKED. CL IN REACH. WILL CPOC
--- NOTE | 2019-01-17 07:47 | NUR ---
REC'D IN WALKING ROUNDS PT SITTING ON SIDE OF BED AWAKE AND ALERT. RESP EVEN AND UNLABORED WITH NO DISTRESS NOTED. CAN EXPRESS NEEDS AND WANTS. NO C/O NOTED OR VOICED. AMBULATE WITH STEADY GAIT. LEFT ARM IN SLING. ASSESSMENT COMPLETED. C/L IN REACH AT BEDSIDE.
[2019-01-17 08:41] VITALS: BP 144/64
--- NOTE | 2019-01-17 11:13 | NUR ---
ALERT AND ORIENTED X 4. UP AD FRANCOIS. BIPAP ON AT THIS TIME FAMILY AT BEDSIDE. PATIENT HAS NO COMPLAINTS OF PAIN AT THIS TIME. BED IN LOW POSTTION AND CALL LIGHT IS REACH. I CONQUER WITH THE LPNS ASSESSMENT
--- NOTE | 2019-01-17 11:35 | NUR ---
LASIX GIVEN TO PT VIA IV TO R FOREARM. IV PATENT, GOOD BLOOD RETURN. SCDS APPLIED TO PT. DENIES PAIN AT THIS TIME. FAMILY AT BEDSIDE. BED LOWERED AND LOCKED. CL IN REACH. WILL CPOC.
[2019-01-17 12:04] VITALS: BP 118/54
[2019-01-17 13:15] VITALS: BMI 35.2
--- NOTE | 2019-01-17 15:53 | NUR ---
Rehab Prescreening Consult recieved and the chart has been reviewed. He was admitted yesterday afternoon from the ER. He still has a cardiology consult pending, a PT and ST eval ordered and pending. Rehab will follow him while continuing his medical workup. Jacqueline Linder RN Clinical liaison, Rehab
[2019-01-17 16:58] VITALS: Ht 182.9 cm; Wt 110.9 kg
[2019-01-17 17:52] VITALS: BP 143/62
--- NOTE | 2019-01-17 18:11 | NUR ---
PT C/O SOB SO HE IS NOTED WEARING BIPAP DURING THE DAY FOR BREATHING COMFORT. NO FURTHER COMPLAINTS AT THIS TIME.
--- NOTE | 2019-01-17 19:10 | NUR ---
RESUMING CARE, PT LAYING IN BED A&O O2 ON @ 3L BIPAP ON , IV IN RT FA SL , TELETRY IN PLACE , PT HAS NO C/O PAIN OR DISTRESS AT THIS TIME CALL LIGHT IN REACH WILL CONT TO MONITOR
[2019-01-17 22:04] VITALS: BP 95/40
[2019-01-18 01:17] VITALS: BP 111/53
[2019-01-18 06:10] LABS: BASOPHILS 0.1 % (0-2); EOSINOPHILS 0.3 % (0-7); HEMATOCRIT 34.9 % (42.0-54.0); HEMOGLOBIN 11.2 g/dL (13.5-17.5); IMMATURE GRANULOCYTES 0.3 % (0-5); LYMPHOCYTES 13.1 % (15-50); MCH 29.5 pg (26.0-34.0); MCHC 32.1 g/dL (31.0-37.0); MCV 91.8 fL (80.0-100.0); MEAN PLATELET VOLUME 11.1 fL (7.4-10.4); MONOCYTES 12.6 % (2-11); NEUTROPHILS 73.6 % (40-80); PLATELET COUNT 161 10x3/uL (130-400); RDW 13.8 % (11.5-14.5); WBC 6.8 10x3/uL (4.8-10.8)
[2019-01-18 06:15] VITALS: BP 110/52
[2019-01-18 06:36] LABS: ALBUMIN 3.2 g/dL (3.4-5.0); ANION GAP 14.9 mmol/L (8-16); BILIRUBIN - TOTAL 1.18 mg/dL (0.2-1.3); CALCIUM 8.5 mg/dL (8.5-10.1); CARBON DIOXIDE 30.1 mmol/L (21.0-32.0); CREATININE - SERUM 1.3 mg/dL (0.6-1.3); MAGNESIUM - SERUM 2.2 mg/dL (1.8-2.4); PROTEIN - SERUM 6.6 g/dL (6.4-8.2)
--- NOTE | 2019-01-18 07:17 | NUR ---
GAVE PATIENT BREATHING TREATMENT WITH THE METANEB BUT NOTICE THAT PATIENT WAS NOT ABLE TO PERFORM PROPER TECHNIQUE TO GET BENEFIT OF DEVICE.
[2019-01-18 08:33] VITALS: BP 157/76
--- NOTE | 2019-01-18 08:45 | NUR ---
CONTINUING PT CARE, PT LAYING IN BED ALERT AND ORIENTED X3, FAMILY AT BEDSIDE. CAR WORKER HELPER AT BEDSIDE WITH INSTRUCTOR TO ADMINISTER MEDICATIONS. CALL LIGHT IN REACH, WILL CONTINUE TO MONITOR AND FOLLOW PLAN OF CARE.
--- NOTE | 2019-01-18 09:30 | NUR ---
TELEMETRY PACED. HR 64. RESTS IN BED WITH EYES CLOSED. BIPAP ON. FAMILY MEMBER AT BS. WILL CONT. PLAN OF CARE.
--- NOTE | 2019-01-18 10:43 | NUR ---
REHAB PRESCREENING Rehab continues to follow this patient for PT and ST evaluations in order to assess admission criteria. Thank you for this referral! Antonietta Lopez, MANAGER RADIO Rehab PD
[2019-01-18 11:47] VITALS: BP 125/72
--- NOTE | 2019-01-18 13:24 | NUR ---
NEW ORDERS PER OSMAN ELIAS APRN, ADD ENSURE TO EACH MEAL, BEDSIDE SWALLOW STUDY AND TYLENOL PRN. ORDERS NOTED. CALL LIGHT IN REACH, WILL CONTINUE TO MONITOR.
[2019-01-18 15:01] VITALS: BP 120/67
--- NOTE | 2019-01-18 17:03 | NUR ---
Rehab Note- Visited with the patient and family member present, he states he doesn't believe he will need rehab but family member present seemed interested, left our acute inpatient rehab information. Will continue to follow at this time. Thank you for this referral! Suki Vaughan RN Clinical Liaison, [facility] Rehab
--- NOTE | 2019-01-18 17:19 | MORECARE ---
CASE MANAGEMENT DISCHARGE SUMMARY PATIENT: HARRY GOLDSMITH UNIT: [id number] ADM DATE: 01/16/19 AGE: 83 : 37 SEX: M ROOM/BED: D.7586 AUTHOR: RADHA,DOC PHYSICIAN: REFERRING PHYSICIAN: ISHA BOWIE MD DATE OF SERVICE: 01/18/19 Discharge Plan Patient Name: HARRY GOLDSMITH Facility: [facility]:[place] : 1935 Planned Disposition: Home Anticipated Discharge Date: 01/19/19 Discharge Date: Expected LOS: 3 Initial Reviewer: [email or web address] Initial Review Date: 01/18/2019 Generated: 01/18/19 6:19 pm Comments DCP- Discharge Planning Updated by [email or web address]: Craig Lino on 01/18/19 4:[address] Patient Name: HARRY GOLDSMITH Admission Status: ER Accout number: [id number] Admission Date: 01-16-2019 : 1935 Admission Diagnosis: Attending: ISHA POWERS Current LOS: 2 Anticipated DC Date: 01-19-2019 Planned Disposition: Home Primary Insurance: MEDICARE A & B Discharge Planning Comments: CM RECEIVED ORDER FOR INPATIENT REHAB PRESCREENING. [place] OF INPATIENT REHAB MET WITH PT WHO REFUSED REHAB SERVICES. CM MET WITH PT IN ROOM TO DISCUSS DISCHARGE PLANNING AND NEEDS. PT REPORTS LIVING AT HOME INDEPENDENTLY WITH ADULT DAUGHTER AND FAMILY MEMBERS. PT HAS CPAP, OXYGEN (HOME AND PORTABLE), CANE, WALKER FROM [place] HOME PATIENT. PT HAS NO OUTSIDE SERVICES ASSISTING IN THE HOME. CM DISCUSSED AVAILABILITY OF HOME HEALTH, REHAB SERVICES AND MEDICAL EQUIPMENT. PT DENIES DISCHARGE NEEDS REPORTING HAVING EXPERIENCE WITH HOME HEALTH FROM WHEN HIS WAS LIVING. PT DENIES REHAB NEEDS, NEED OF HOME HEALTH AND OF [employer]UR[employer] MEDICAL EQUIPMENT. PT REPORTS HIS DAUGHTER OR GRANDCHILD WILL PICK HIM UP FOR DISCHARGE HOME. IMPORTANT MESSAGE FROM MEDICARE PROVIDED AND EXPLAINED. PT DECLINED REHAB PLACEMENT AND HOME HEALTH SERVICES. PT TO DISCHARGE HOME WITH FAMILY, FAMILY TO TRANSPORT HOME. CM TO FOLLOW AND ASSIST NEEDED. Cloth Colors Examiner: Craig Lino DCPIA - Discharge Planning Initial Assessment Updated by [email or web address]: Craig Lino on 01/18/19 5:13 pm * Is the patient Alert and Oriented? Yes * How many steps to enter\exit or inside your home? NONE * PCP DR. CHARLES * Pharmacy [facility] - BUT CHANGING PHARMACY BECAUSE THEY CANNOT COUNT * Preadmission Environment Home with Family * ADLs Independent * Equipment Cane CPAP Oxygen Walker * Other Equipment HOME AND PORTABLE OXYGEN [place] HOME PATIENT - MEDICAL EQUIPMENT PROVIDER * List name and contact numbers for known caregivers / representatives who currently or will assist patient after discharge: AVANI WARD, DTR, * Verbal permission to speak to the caregivers and representatives has been obtained from the patient. Yes * Community resources currently utilized None * Please name any agencies selected above. NONE * Additional services required to return to the preadmission environment? No * Can the patient safely return to the preadmission environment? Yes * Has this patient been hospitalized within the prior 30 days at any hospital? Yes Coverage Notice Reviewer: [id number] Ruben Lino Notice Issued Date-Time: 01/18/2019 16:45 Notice Type: IM Discharge Notice Notice Delivered To: Patient Relationship to Patient: Label Fuser Tender Name: Delivery Method: HAND - Hand Delivered Cleopatra Days: Prior Verbal Notification: Recipient Understood Notice: Yes Recipient Signature: Yes Med Rec Note Co-signed by Attending: Coverage Notice Comment: Patient Name: HARRY GOLDSMITH Page [phone] at 1719 All edits/amendments must be made on the electronic document DICTATION DATE: 01/18/191718 ENGRAVER SEALS: CORNEL 01/18/191718 RPT#: [id number] DC DATE: STATUS: ADM IN [facility] [address] [place] [address] END OF REPORT
--- NOTE | 2019-01-18 17:52 | NUR ---
NEW ORDERS FROM [facility] FU WITH CULTURE, BLOOD CULTURES. ALSO TAKE C-PAP OFF AND FOLLOW UP WITH O2 LEVELS, KEEP O2 ON VIA NC. WEAR C-PAP EVERY HS. ORDERS NOTED.
--- NOTE | 2019-01-18 19:59 | NUR ---
INTRODUCED SELF TO PATIENT, RESP EVEN AND UNLABORED ON CPAP. GRANDDAUGHTER AT BEDSIDE, NO S/SX OF DISCOMFORT OR C/O OF PAIN.
[2019-01-18 20:00] VITALS: BP 132/71
[2019-01-18 21:50] LABS: APPEARANCE CLEAR (CLEAR); BILIRUBIN NEGATIVE (NEGATIVE); COLOR YELLOW (YELLOW); GLUCOSE NEGATIVE (NEGATIVE); KETONE NEGATIVE (NEGATIVE); NITRITE NEGATIVE (NEGATIVE); PROTEIN NEGATIVE (NEGATIVE); SPECIFIC GRAVITY 1.015 (1.005-1.020); UROBILINOGEN NORMAL (NORMAL)
--- NOTE | 2019-01-18 22:00 | NUR ---
GAVE NIGHTTIME MEDS, PATIENT ON CPAP W/O ANY COMPLAINTS AT THIS TIME. SON AT BEDSIDE, RESP EVEN AND UNLABORED. BED IN LOWEST POSITION, CALL LIGHT IN REACH.
[2019-01-19] VITALS (7 sets, daily range): BP systolic 107–145; BP diastolic 63–76
[2019-01-19 05:21] LABS: HEMOGLOBIN 12.1 g/dL (13.5-17.5); LYMPHOCYTES 18.2 % (15-50); MCH 29.7 pg (26.0-34.0); MCHC 32.7 g/dL (31.0-37.0); MCV 90.9 fL (80.0-100.0); MEAN PLATELET VOLUME 10.1 fL (7.4-10.4); NEUTROPHILS 69.3 % (40-80); RBC 4.07 10x6/uL (4.20-6.10); RDW 13.3 % (11.5-14.5); WBC 5.4 10x3/uL (4.8-10.8)
[2019-01-19 05:22] LABS: PLATELET COUNT 124 10x3/uL (130-400)
[2019-01-19 05:23] LABS: ALBUMIN 3.4 g/dL (3.4-5.0); ANION GAP 11.1 mmol/L (8-16); BILIRUBIN - TOTAL 1.56 mg/dL (0.2-1.3); CALCIUM 8.6 mg/dL (8.5-10.1); CARBON DIOXIDE 33.4 mmol/L (21.0-32.0); CREATININE - SERUM 1.1 mg/dL (0.6-1.3); MAGNESIUM - SERUM 1.9 mg/dL (1.8-2.4); POTASSIUM - SERUM 3.5 mmol/L (3.5-5.1); PROTEIN - SERUM 7.2 g/dL (6.4-8.2)
--- NOTE | 2019-01-19 06:26 | NUR ---
PATIENT TOOK MORNING MEDS W/O DIFFICULTY, WAS SITTING IN 90 DEGREE ANGLE IN BED. SON ASKED IF WE COULD PLACE A DERAS BECAUSE HE WAS TIRED OF GETTING UP MULTIPLE TIMES THROUGH THE NIGHT, EDUCATED THAT WASN'T A TYPICAL REASON FOR US TO PLACE A DERAS AND WE TRY NOT TO UNLESS ABSOLUTELY NECESSARY FOR INFECTION CONTROL. SON EXPRESSED UNDERSTANDING. BED IN LOWEST POSITION, CALL LIGHT IN REACH.
--- NOTE | 2019-01-19 08:50 | NUR ---
RESUMING PT CARE, PT LAYING IN BED ALERT AND ORIENTED X3, RESPIRATIONS EVEN AND UNLABORED. CALL LIGHT IN REACH, DAUGHTER IS AT BEDSIDE. WILL CONTINUE TO MONITOR AND FOLLOW PLAN OF CARE.
--- NOTE | 2019-01-19 11:04 | NUR ---
AGREE WITH ASSESMENT REVIEWED.
--- NOTE | 2019-01-19 12:23 | NUR ---
DR BAUER AT BEDSIDE, PT SITTING UP AT BEDSIDE. CALL LIGHT IN REACH.
--- NOTE | 2019-01-19 19:15 | NUR ---
RESUMING CARE. PT LAYING IN BED A&O , O2 ON @ 5L , IV IN RT FA SL , BIPAP @ BEDSIDE BREATH SOUNDS EVEN NO C/O PAIN OR DISTRESS AT THIS TIME CALL LIGHT IN REACH FAMILY @ BEDSIDE WILL CONT TO MONITOR
--- NOTE | 2019-01-20 01:28 | NUR ---
VSS. O2 SAT 90% ON BIPAP. PACED RHYTHM PER CM HR 63. PT RESTING WITH EYES CLOSED. RESP EVEN AND REGULAR. SR UP X2, CALL LIGHT WITHIN REACH.
[2019-01-20 03:55] VITALS: BP 120/54
[2019-01-20 05:10] LABS: BASOPHILS 0.2 % (0-2); EOSINOPHILS 2.3 % (0-7); HEMATOCRIT 35.1 % (42.0-54.0); HEMOGLOBIN 11.3 g/dL (13.5-17.5); IMMATURE GRANULOCYTES 0.2 % (0-5); LYMPHOCYTES 17.2 % (15-50); MCH 28.9 pg (26.0-34.0); MCHC 32.2 g/dL (31.0-37.0); MCV 89.8 fL (80.0-100.0); MEAN PLATELET VOLUME 10.4 fL (7.4-10.4); MONOCYTES 14.6 % (2-11); NEUTROPHILS 65.5 % (40-80); PLATELET COUNT 126 10x3/uL (130-400); RBC 3.91 10x6/uL (4.20-6.10); RDW 13.6 % (11.5-14.5); WBC 4.8 10x3/uL (4.8-10.8)
[2019-01-20 05:42] LABS: ALBUMIN 2.9 g/dL (3.4-5.0); ALKALINE PHOSPHATASE 177 U/L (46-116); ALT (SGPT) 27 U/L (10-68); BILIRUBIN - TOTAL 1.43 mg/dL (0.2-1.3); CALC OSMOLALITY 285 mosm/kg (275-300); CALCIUM 8.1 mg/dL (8.5-10.1); CARBON DIOXIDE 32.1 mmol/L (21.0-32.0); CHLORIDE - SERUM 99 mmol/L (98-107); GLUCOSE 155 mg/dL (74-106); MAGNESIUM - SERUM 1.9 mg/dL (1.8-2.4); POTASSIUM - SERUM 3.5 mmol/L (3.5-5.1); PROTEIN - SERUM 5.9 g/dL (6.4-8.2); SODIUM 140 mmol/L (136-145); UREA NITROGEN 24 mg/dL (7-18); eGFR NON AFRICAN AMERICAN 76 mL/min (90-120)
--- NOTE | 2019-01-20 07:00 | NUR ---
RECEIVED BEDSIDE SHIFT REPORT. ASSUMED CARE OF PATIENT. PATIENT DENIES NEEDS AT THIS TIME. PATIENT DAUGHTER AT BEDSIDE. PATIENT RECEIVING TREATMENT FROM RESPIRATORY AT THIS TIME. NO DISTRESS. CALL LIGHT WITHIN REACH.
[2019-01-20 09:17] VITALS: BP 146/74
--- NOTE | 2019-01-20 10:30 | NUR ---
ASSISTED PATIENT TO AND FROM RESTROOM. URINAL EMPTYED. FAMILY AT BEDSIDE. NO DISTRESS.
[2019-01-20 11:12] VITALS: BP 142/63
--- NOTE | 2019-01-20 13:38 | NUR ---
RESTING IN BED WITH EYES CLOSED. FAMILY REMAINS AT BEDSIDE. CALL LIGHT WITHIN REACH. NO DISTRESS.
[2019-01-20 15:33] VITALS: BP 136/56
--- NOTE | 2019-01-20 19:32 | NUR ---
RECEIVED REPORT, WILL ASSUME CARE OF PT, PT IS SLEEPING, GRANDDAUGHTER AT BEDSIDE, ASKING FOR RESPITORY TO HELP WITH C-PAP,BED IS LOW, SRX2, CALL LIGHT IN REACH, WILL CONTINUE PLAN OF CARE
[2019-01-20 20:10] VITALS: BP 131/60
--- NOTE | 2019-01-20 22:50 | NUR ---
SLEEPING WITH C-PAP ON, NO DISTRESS NOTICED AT THIS TIME, GRANDDAUGHTER AT BEDSIDE
[2019-01-20 23:55] VITALS: BP 147/69
[2019-01-21 03:55] VITALS: BP 132/61
--- NOTE | 2019-01-21 04:41 | NUR ---
ASSESSMENT PER DISPUTE RESOLUTION SPECIALIST REVIEWED AND THIS RN IN AGREEMENT. MONITOR AND CPOC.
[2019-01-21 04:45] LABS: BASOPHILS 0.2 % (0-2); HEMOGLOBIN 11.9 g/dL (13.5-17.5); IMMATURE GRANULOCYTES 0.2 % (0-5); LYMPHOCYTES 20.6 % (15-50); MCH 29.2 pg (26.0-34.0); MCHC 32.2 g/dL (31.0-37.0); MCV 90.7 fL (80.0-100.0); MEAN PLATELET VOLUME 10.1 fL (7.4-10.4); MONOCYTES 13.2 % (2-11); NEUTROPHILS 62.8 % (40-80); PLATELET COUNT 143 10x3/uL (130-400); RBC 4.08 10x6/uL (4.20-6.10); RDW 13.4 % (11.5-14.5); WBC 5.4 10x3/uL (4.8-10.8)
[2019-01-21 05:20] LABS: ALBUMIN 3.2 g/dL (3.4-5.0); ALKALINE PHOSPHATASE 204 U/L (46-116); ALT (SGPT) 28 U/L (10-68); BILIRUBIN - TOTAL 1.42 mg/dL (0.2-1.3); CALC OSMOLALITY 285 mosm/kg (275-300); CALCIUM 8.5 mg/dL (8.5-10.1); CARBON DIOXIDE 33.8 mmol/L (21.0-32.0); CHLORIDE - SERUM 97 mmol/L (98-107); GLUCOSE 166 mg/dL (74-106); MAGNESIUM - SERUM 1.9 mg/dL (1.8-2.4); POTASSIUM - SERUM 3.6 mmol/L (3.5-5.1); PROTEIN - SERUM 6.4 g/dL (6.4-8.2); SODIUM 140 mmol/L (136-145); UREA NITROGEN 20 mg/dL (7-18); eGFR NON AFRICAN AMERICAN 76 mL/min (90-120)
--- NOTE | 2019-01-21 07:00 | NUR ---
RECEIVED BEDSIDE SHIFT REPORT. ASSUMED CARE OF PATIENT. PATIENT SITTING UP IN BED WITH EYES OPEN. PATIENT FAMILY ASLEEP IN CHAIR AT BEDSIDE. PATIENT STATES HE SLEPT WELL. DENIES PAIN. REMAINS ON HIGHFLOW NASAL CANULA AT 5L. DENIES NEEDS AT THIS TIME. NO DISTRESS.
[2019-01-21 08:50] VITALS: BP 129/63
--- NOTE | 2019-01-21 11:00 | NUR ---
SITTING IN BED. PATIENT FAMILY AT BEDSIDE. PATIENT AWAITING TO SEE IF HE WILL GET TO GO HOME TODAY. CALL LIGHT WITHIN REACH. NO DISTRESS.
[2019-01-21 12:21] VITALS: BP 126/65
--- NOTE | 2019-01-21 14:20 | NUR ---
SHOWER COMPLETED. PATIENT SON AT BEDSIDE. CALL LIGHT WITHIN REACH. NO DISTRESS. TELEMETRY REAPPLIED AFTER SHOWER.
[2019-01-21 15:48] VITALS: BP 123/69
--- NOTE | 2019-01-21 17:15 | NUR ---
1715 PATIENT'S SON APPROACHES THIS BONDING MACHINE SETTER AT NURSES STATION AND STATES THAT SOMETHING IS WRONG WITH HIS DAD THAT HIS DAD IS NOT ACTING LIKE HIMSELF. THIS BONDING MACHINE SETTER WENT TO ROOM, PATIETN SITTING TO SIDE OF BED WITH CPAP MASK ON, NOT ORIENTED, NOT ABLE TO FOLLOW COMMANDS WELL. PATIENT NOTED TO HAVE DROOPY LEFT EYELID, EYES LOOKED GLASSEY, WEAKNESS TO LEFT SIDE. NOTIFIED CHARGE NURSE AND MEDICAL CODER ON UNIT, CALLED SOILS ANALYST WHO GAVE DIRECTIONS TO TAKE PATIENT STRATIGHT TO CT. PATIENT TRANSFERRED TO CT VIA BED PATIENT IS UNABLE TO STAND UP AND GET INTO A WHEELCHAIR WHICH WAS A SIGNIFICANT DECLINE IN PATIENT CONDITION.
--- NOTE | 2019-01-21 17:48 | NUR ---
IN CT SCAN WITH PATIENT AT THIS TIME.
--- NOTE | 2019-01-21 18:00 | NUR ---
PATIENT IN ER, ON LICENSE OF [facility] ROOM 3 AT THIS TIME FOR TELECONFERENCE FOR NEUROLOGIST FOR [place] SAVES.
--- NOTE | 2019-01-21 18:46 | NUR ---
PATIENT REMAINS IN ER AT THIS TIME. PATIENT DID NOT MEET CRITERIA WITH OBED PICKENS FOR TPA BECAUSE PATIENT HAS RECEIVED XARELTO AT 2027 LAST PM. PER PROTOCOL CAN NOT HAVE ANTICOAGULANT SUCH XARELTO WITHIN 48 HOURS OF TPA ADMINISTRATION. ER PHYSICIAN TO SPEAK WITH SON AT THIS TIME.
--- NOTE | 2019-01-21 19:30 | NUR ---
RECEIVED REPORT, WILL ASSUME CARE OF PT, FAMILY IN ROOM, WAITING FOR TO COME AND TALK WITH THEM, BED IS LOW, SRX2, CALL LIGHT IN REACH, WILL CONTINUE PLAN OF CARE
--- NOTE | 2019-01-21 19:34 | NUR ---
SPOKE TO AT THIS TIME IN REGARDS TO THE PATIENTS FAMILY IS HERE AND WANTS TO KNOW WHY SEPSIS ORDERS HAVE NOT BEEN PUT IN FOR PATIENT THEY RECOREDED A CONVERSATION WITH THE ER PHYSICIAN STATING THAT IS WHAT THE PLAN FOR THE PATIENT IS AT THIS TIME. STATED HE WAS COMING TO SEE THE PATIENT AND ONCE HE EVALUATES THE PATIENT, HE WILL GIVE ORDERS. THANKED . EXPLAIN TO FAMILY THAT MD IS COMING TO SEE THE PATIENT AND WILL THEN GIVE THE NECESSARY ORDERS. FAMILY THANKED THIS CHILD DAY CARE CENTER WORKER.
[2019-01-21 19:55] VITALS: BP 119/51
--- NOTE | 2019-01-21 20:12 | NUR ---
MANAGER PACU REPORT A TEM. 102.8, EXPLAINED WE WOULD HOLD TYLENOL UNTIL DR. LOTT COMES AND SEE PT
--- NOTE | 2019-01-21 21:01 | NUR ---
FAMILY ASKING WHEN DR. LOTT WAS COMING, CALL HIM, HE SAID HE WAS STILL ROUNDING, WOULD BE HERE SOON
--- NOTE | 2019-01-21 21:09 | NUR ---
HOLDING PM MEDS UNTIL PT IS SEEN BY DR. LOTT
[2019-01-21 23:50] VITALS: BP 95/37
[2019-01-22 03:43] VITALS: BP 124/59
--- NOTE | 2019-01-22 04:02 | NUR ---
REVIEW AND AGREEMENT WITH ASSESSMENT PER WEIGHT COUNT OPERATOR. PT RESTING IN BED WITH NO DISTRESS. MONITOR AND CPOC.
[2019-01-22 05:47] LABS: BASOPHILS 0.1 % (0-2); EOSINOPHILS 0.1 % (0-7); HEMATOCRIT 36.4 % (42.0-54.0); HEMOGLOBIN 11.7 g/dL (13.5-17.5); IMMATURE GRANULOCYTES 0.2 % (0-5); LYMPHOCYTES 11.2 % (15-50); MCH 29.3 pg (26.0-34.0); MCHC 32.1 g/dL (31.0-37.0); MEAN PLATELET VOLUME 10.8 fL (7.4-10.4); MONOCYTES 12.1 % (2-11); NEUTROPHILS 76.3 % (40-80); PLATELET COUNT 155 10x3/uL (130-400); RDW 13.4 % (11.5-14.5); WBC 9.3 10x3/uL (4.8-10.8)
[2019-01-22 06:09] LABS: ANION GAP 12.2 mmol/L (8-16); BILIRUBIN - TOTAL 1.71 mg/dL (0.2-1.3); CALCIUM 8.6 mg/dL (8.5-10.1); CARBON DIOXIDE 33.2 mmol/L (21.0-32.0); CREATININE - SERUM 1.3 mg/dL (0.6-1.3); MAGNESIUM - SERUM 1.9 mg/dL (1.8-2.4); POTASSIUM - SERUM 3.4 mmol/L (3.5-5.1); PROTEIN - SERUM 6.7 g/dL (6.4-8.2)
--- NOTE | 2019-01-22 07:44 | NUR ---
PT C/O LT AC IV BLEEDING.CHECKED IV AND IV IS PATENT AND WORKING. RETAKED IV. RT FA IV NOT WORKING, D/C IV WITH CATHETER TIP INTACT. REPLACED BATTERIES TO HEART MONITOR. RESP AT BEDSIDE DOING AN UPDRAFT. PT A/O X4, RESP EVEN AND NOLABORED ON BIPAP. PT DENIES ANY NEEDS AT THIS TIME. CALL LIGHT IN REACH, NAD NOTED, FAMILY AT BEDSIDE, WILL CONTINUE TO MONITOR.
[2019-01-22 08:27] VITALS: BP 123/53
--- NOTE | 2019-01-22 16:23 | NUR ---
22G STARTED TO RT FA X1 STICK. PT DENIES ANY NEEDS AT THIS TIME. CALL LIGHT IN REACH, NAD NOTED, FAMILY AT BEDSIDE.
[2019-01-22 17:57] VITALS: BP 133/68
--- NOTE | 2019-01-22 19:16 | NUR ---
RECEIVED REPORT, WILL ASSUME CARE OF PT, DENIES ANY NEEDS AT THIS TIME, DAUGHTER AT BEDSIDE, BED IS LOW, SRX2, CALL LIGHT IN REACH, WILL CONTINUE PLAN OF CARE
[2019-01-22 21:43] VITALS: BP 109/48
[2019-01-23 01:07] VITALS: BP 104/47
[2019-01-23 05:46] LABS: BASOPHILS 0.1 % (0-2); EOSINOPHILS 1.3 % (0-7); HEMATOCRIT 36.8 % (42.0-54.0); HEMOGLOBIN 11.9 g/dL (13.5-17.5); IMMATURE GRANULOCYTES 0.2 % (0-5); LYMPHOCYTES 12.8 % (15-50); MCH 29.3 pg (26.0-34.0); MCHC 32.3 g/dL (31.0-37.0); MCV 90.6 fL (80.0-100.0); MEAN PLATELET VOLUME 10.8 fL (7.4-10.4); MONOCYTES 12.2 % (2-11); NEUTROPHILS 73.4 % (40-80); PLATELET COUNT 160 10x3/uL (130-400); RBC 4.06 10x6/uL (4.20-6.10); RDW 13.5 % (11.5-14.5); WBC 8.4 10x3/uL (4.8-10.8)
[2019-01-23 05:57] VITALS: BP 121/48
[2019-01-23 06:09] LABS: ANION GAP 14.5 mmol/L (8-16); CARBON DIOXIDE 31.9 mmol/L (21.0-32.0); CREATININE - SERUM 1.1 mg/dL (0.6-1.3); POTASSIUM - SERUM 3.4 mmol/L (3.5-5.1)
--- NOTE | 2019-01-23 07:00 | NUR ---
RECEIVED BEDSIDE SHIFT REPORT. ASSUMED CARE OF PATIENT. PATIENT SITTING TO SIDE OF BED, NO DROOPING TO EITHER SIDE OF FACE, ANSWERING QUESTIONS APPROPRIATELY. PATIENT GREATLY IMPROVED FROM Tuesday WHEN LAST CARED FOR PATIENT. THIS ELECTRONICS SCALE TESTER TOLD THE PATIENT HE LOOKS SO MUCH BETTER SINCE I LAST SAW HIM Tuesday AND HE ASKED THIS ELECTRONICS SCALE TESTER JOKINGLY, WHERE I HAD MISPLACED MY GLASSES. PATIENT FAMILY AT BEDSIDE. NO DISTRESS. DENIES NEEDS. CALL LIGHT WITHIN REACH.
[2019-01-23 08:19] VITALS: BP 118/57
--- NOTE | 2019-01-23 11:41 | NUR ---
PATIENT SITTING UP IN BED, RESP EVEN AND UNLABORED. NO CHANGE OF CONDITION THIS SHIFT. PATIENT GRANDDAUGTHER REMAINS AT BEDSIDE. CALL LIGHT WITHIN REACH. NO DISTRESS. DENIES NEEDS AT THIS TIME.
[2019-01-23 12:17] VITALS: BP 114/58
--- NOTE | 2019-01-23 12:54 | NUR ---
PATIENT WANTING TO GO HOME, CALLED AND SPOKE TO MACY. LUIS CAVAZOS WILL LOOK AND REVIEW PATIENT CHART.
[2019-01-23] MEDS ORDERED: TAMIFLU75 MG PO (13:44)
[2019-01-23] MEDS ORDERED: ZITHROMAX500 MG PO (13:44)
[2019-01-23] MEDS ORDERED: BROVANA15 MCG/2 M INH (13:45)
[2019-01-23] MEDS ORDERED: XOPENEX 1.1.25 MG/3 INH (13:45)
[2019-01-23] MEDS ORDERED: ISOSORBIDE MONO30 M1 PO (13:45)
--- NOTE | 2019-01-23 14:33 | NUR ---
VERIFIED WITH PATIENT THAT HE DOES HAVE PORTABLE OXYGEN AT HOME AND THE GRAND DAUGHTER THAT IS AT BEDSIDE HAS CALLED SOMEONE AND REQUESTED THEM TO BRING A TANK.
--- NOTE | 2019-01-23 14:40 | NUR ---
PATIENT HAS HOME PORTABLE OXYGEN TANK IN CLOSET. NO NEED FOR FAMILY TO BRING ANOTHER OXYGEN TANK TO THE HOSPITAL.
[2019-01-23] MEDS ORDERED: IPRATROPIUM BROMIDE NEB (15:37)
[2019-01-23] MEDS ORDERED: ALBUTEROL NEB (15:39)
--- NOTE | 2019-01-23 16:19 | NUR ---
CALLED AND LEFT MESSAGE FOR SERGIO WARD TO CALL BACK REGARDING CHANGE OF NEBULIZING MEDICATION
--- NOTE | 2019-01-23 16:19 | MORECARE ---
CASE MANAGEMENT DISCHARGE SUMMARY PATIENT: HARRY GOLDSMITH UNIT: [id number] ADM DATE: 01/16/19 AGE: 83 : 37 SEX: M ROOM/BED: D.2058 AUTHOR: RADHA,DOC PHYSICIAN: REFERRING PHYSICIAN: ISHA BOWIE MD DATE OF SERVICE: 01/23/19 Discharge Plan Patient Name: HARRY GOLDSMITH Facility: [facility]:[place] : 1935 Planned Disposition: Home Anticipated Discharge Date: 01/23/19 Discharge Date: Expected LOS: 7 Initial Reviewer: [email or web address] Initial Review Date: 01/18/2019 Generated: 01/23/19 5:19 pm Comments DCP- Discharge Planning Updated by [email or web address]: Craig Lino on 01/18/19 4:[address] Patient Name: HARRY GOLDSMITH Admission Status: ER Accout number: [id number] Admission Date: 01-16-2019 : 1935 Admission Diagnosis: Attending: ISHA POWERS Current LOS: 2 Anticipated DC Date: 01-19-2019 Planned Disposition: Home Primary Insurance: MEDICARE A & B Discharge Planning Comments: CM RECEIVED ORDER FOR INPATIENT REHAB PRESCREENING. [facility] OF INPATIENT REHAB MET WITH PT WHO REFUSED REHAB SERVICES. CM MET WITH PT IN ROOM TO DISCUSS DISCHARGE PLANNING AND NEEDS. PT REPORTS LIVING AT HOME INDEPENDENTLY WITH ADULT DAUGHTER AND FAMILY MEMBERS. PT HAS CPAP, OXYGEN (HOME AND PORTABLE), CANE, WALKER FROM [facility]. PT HAS NO OUTSIDE SERVICES ASSISTING IN THE HOME. CM DISCUSSED AVAILABILITY OF HOME HEALTH, REHAB SERVICES AND MEDICAL EQUIPMENT. PT DENIES DISCHARGE NEEDS REPORTING HAVING EXPERIENCE WITH HOME HEALTH FROM WHEN HIS WAS LIVING. PT DENIES REHAB NEEDS, NEED OF HOME HEALTH AND OF FURHTER MEDICAL EQUIPMENT. PT REPORTS HIS DAUGHTER OR GRANDCHILD WILL PICK HIM UP FOR DISCHARGE HOME. IMPORTANT MESSAGE FROM MEDICARE PROVIDED AND EXPLAINED. PT DECLINED REHAB PLACEMENT AND HOME HEALTH SERVICES. PT TO DISCHARGE HOME WITH FAMILY, FAMILY TO TRANSPORT HOME. CM TO FOLLOW AND ASSIST NEEDED. Land Clearer: Craig Lino DCPIA - Discharge Planning Initial Assessment Updated by [id number]: Craig Lino on 01/18/19 5:13 pm * Is the patient Alert and Oriented? Yes * How many steps to enter\exit or inside your home? NONE * PCP DR. CHARLES * Pharmacy [facility] - BUT CHANGING PHARMACY BECAUSE THEY CANNOT COUNT * Preadmission Environment Home with Family * ADLs Independent * Equipment Cane CPAP Oxygen Walker * Other Equipment HOME AND PORTABLE OXYGEN [facility] - MEDICAL EQUIPMENT PROVIDER * List name and contact numbers for known caregivers / representatives who currently or will assist patient after discharge: AVANI WARD, DTR, * Verbal permission to speak to the caregivers and representatives has been obtained from the patient. Yes * Community resources currently utilized None * Please name any agencies selected above. NONE * Additional services required to return to the preadmission environment? No * Can the patient safely return to the preadmission environment? Yes * Has this patient been hospitalized within the prior 30 days at any hospital? Yes External Providers External Provider: [facility] Next Contact Date: 01/23/2019 Service Request Date: Service Type: Resolution: Reviewer: Comments: Coverage Notice Reviewer: [id number] - Craig Lino Notice Issued Date-Time: 01/18/2019 16:45 Notice Type: IM Discharge Notice Notice Delivered To: Patient Relationship to Patient: Attraction Attendant Name: Delivery Method: HAND - Hand Delivered Cleopatra Days: Prior Verbal Notification: Recipient Understood Notice: Yes Recipient Signature: Yes Med Rec Note Co-signed by Attending: Coverage Notice Comment: Last DP export: 01/18/19 4:19 p Patient Name: HARRY GOLDSMITH Page [id number] at 1619 All edits/amendments must be made on the electronic document DICTATION DATE: 01/23/191618 BRAKE MACHINE OPERATOR: CORNEL 01/23/19 1619 RPT#: [id number] DC DATE: STATUS: ADM IN [facility] [address] [place] [address] END OF REPORT
--- NOTE | 2019-01-23 16:35 | MORECARE ---
CASE MANAGEMENT DISCHARGE SUMMARY PATIENT: HARRY GOLDSMITH UNIT: [id number] ADM DATE: 01/16/19 AGE: 83 : 37 SEX: M ROOM/BED: D.5323 AUTHOR: RADHA,DOC PHYSICIAN: REFERRING PHYSICIAN: ISHA BOWIE MD DATE OF SERVICE: 01/23/19 Discharge Plan Patient Name: HARRY GOLDSMITH Facility: [facility]:[place] : 1935 Planned Disposition: Home Anticipated Discharge Date: 01/23/19 Discharge Date: Expected LOS: 7 Initial Reviewer: [id number] Initial Review Date: 01/18/2019 Generated: 01/23/19 5:35 pm Comments DCP- Discharge Planning Updated by [email or web address]: Craig Lino on 01/23/19 3:[address] Patient Name: HARRY GOLDSMITH Encounter No: [id number] : 1935 Primary Insurance: MEDICARE A & B Anticipated DC Date: 01-23-2019 Planned Disposition: Home DCP follow-up note: CM RECEIVED DISCHARGE ORDER WITH ORDER FOR NEBULIZER AND MEDICATIONS. CM RECEIVED CALL FROM PT'S DAUGHTER, AVANI, , WHO INFORMED CM THAT THEY WANT TO USE [facility] FOR NEBULIZER AND MEDICATIONS FOR NEBULIZER PT HAS HOME OXYGEN WITH [facility]. CM ADVISED SHE WILL NEED TO FILL SEVERAL DAYS OF NEBLULIZER MEDICATIONS FROM PHARMACY IT WILL TAKE SEVERAL DAYS FOR MAIL ORDER NEB MEDS TO BE PROCESSED AND DELIVERED TO HOME. AVANI REPORTS UNDERSTANDING. CHOICE LETTER COMPLETED. AVANI INFORMED CM THAT THE PHARMACY TOLD HER THAT ONE OF PT'S MEDICATIONS ARE NOT COVERED BY INSURANCE AND WILL COSTS $518. SHE DOES NOT KNOW THE NAME OF THE MEDICATION BUT WOULD LIKE SOMEONE TO CONTACT PHARMACY AND GET THIS TAKEN CARE OF FOR THEM. CM NOTIFIED MARKETING SERVICES COORDINATOR NURSE. CM SPOKE TO PT IN ROOM, DISCUSSED AVAILABLITY OF HOME HEALTH AND REHAB SERVICES, PT DENIED NEEDS. PT UNDERSTANDS HE WILL GET A NEBULIZER AND STATES ONE OF HIS DAUGHTERS WILL KNOW HOW TO USE IT. CM EXPLAINED THAT [facility] WILL PROVIDE INSTRUCTIONS ON HOME NEBLULIZER USE. PT REPORTS FAMILY TO BE PICKING HIM UP TODAY. IMPORTANT MESSAGE FROM MEDICARE PROVIDED AND EXPLAINED. CM CALLED [facility], , SPOKE TO BLANCA WHO WILL ARRANGE HOME DELIVERY OF NEBULIZER AND MAIL ORDER OF MEDICATIONS. CM FAXED ORDER AND REFERRAL TO [facility] AT [phone]. Craig Lino, CASE MANAGEMENT DCP- Discharge Planning Updated by [id number]: Craig Lino on 01/18/19 4:[address] Patient Name: HARRY GOLDSMITH Admission Status: ER Accout number: [id number] Admission Date: 01-16-2019 : 1935 Admission Diagnosis: Attending: ISHA POWERS Current LOS: 2 Anticipated DC Date: 01-19-2019 Planned Disposition: Home Primary Insurance: MEDICARE A & B Discharge Planning Comments: CM RECEIVED ORDER FOR INPATIENT REHAB PRESCREENING. [facility] OF INPATIENT REHAB MET WITH PT WHO REFUSED REHAB SERVICES. CM MET WITH PT IN ROOM TO DISCUSS DISCHARGE PLANNING AND NEEDS. PT REPORTS LIVING AT HOME INDEPENDENTLY WITH ADULT DAUGHTER AND FAMILY MEMBERS. PT HAS CPAP, OXYGEN (HOME AND PORTABLE), CANE, WALKER FROM [facility]. PT HAS NO OUTSIDE SERVICES ASSISTING IN THE HOME. CM DISCUSSED AVAILABILITY OF HOME HEALTH, REHAB SERVICES AND MEDICAL EQUIPMENT. PT DENIES DISCHARGE NEEDS REPORTING HAVING EXPERIENCE WITH HOME HEALTH FROM WHEN HIS WAS LIVING. PT DENIES REHAB NEEDS, NEED OF HOME HEALTH AND OF FURHTER MEDICAL EQUIPMENT. PT REPORTS HIS DAUGHTER OR GRANDCHILD WILL PICK HIM UP FOR DISCHARGE HOME. IMPORTANT MESSAGE FROM MEDICARE PROVIDED AND EXPLAINED. PT DECLINED REHAB PLACEMENT AND HOME HEALTH SERVICES. PT TO DISCHARGE HOME WITH FAMILY, FAMILY TO TRANSPORT HOME. CM TO FOLLOW AND ASSIST NEEDED. Supervisor Publications: Craig Lino DCPIA - Discharge Planning Initial Assessment Updated by [id number]: Craig Lino on 01/18/19 5:13 pm * Is the patient Alert and Oriented? Yes * How many steps to enter\exit or inside your home? NONE * PCP DR. CHARLES * Pharmacy [facility] - BUT CHANGING PHARMACY BECAUSE THEY CANNOT COUNT * Preadmission Environment Home with Family * ADLs Independent * Equipment Cane CPAP Oxygen Walker * Other Equipment HOME AND PORTABLE OXYGEN [facility] - MEDICAL EQUIPMENT PROVIDER * List name and contact numbers for known caregivers / representatives who currently or will assist patient after discharge: AVNAI WARD, DTR, * Verbal permission to speak to the caregivers and representatives has been obtained from the patient. Yes * Community resources currently utilized None * Please name any agencies selected above. NONE * Additional services required to return to the preadmission environment? No * Can the patient safely return to the preadmission environment? Yes * Has this patient been hospitalized within the prior 30 days at any hospital? Yes Coverage Notice Reviewer: [email or web address] Lino Notice Issued Date-Time: 01/18/2019 16:45 Notice Type: IM Discharge Notice Notice Delivered To: Patient Relationship to Patient: Planer Setter Name: Delivery Method: HAND - Hand Delivered Cleopatra Days: Prior Verbal Notification: Recipient Understood Notice: Yes Recipient Signature: Yes Med Rec Note Co-signed by Attending: Coverage Notice Comment: Reviewer: JESSE Lino Notice Issued Date-Time: 01/23/2019 15:20 Notice Type: Patient Choice Letter Notice Delivered To: Family Member Relationship to Patient: Daughter Planer Setter Name: AVANI WARD Delivery Method: PHONE - Phone Cleopatra Days: Prior Verbal Notification: Recipient Understood Notice: Yes Recipient Signature: Med Rec Note Co-signed by Attending: Coverage Notice Comment: [facility], PT HAS HOME AND PORTABLE OXGYEN WITH THEM. Reviewer: [email or web address] Lino Notice Issued Date-Time: 01/23/2019 15:20 Notice Type: IM Discharge Notice Notice Delivered To: Patient Relationship to Patient: Planer Setter Name: Delivery Method: HAND - Hand Delivered Cleopatra Days: Prior Verbal Notification: Recipient Understood Notice: Yes Recipient Signature: Yes Med Rec Note Co-signed by Attending: Coverage Notice Comment: Last DP export: 01/23/19 3:19 p Patient Name: HARRY GOLDSMITH Page [phone] at 1635 All edits/amendments must be made on the electronic document DICTATION DATE: 01/23/19 1634 CUSTOMER ENGINEERING SPECIALIST: CORNEL 01/23/19 1634 RPT#: [id number] DC DATE: STATUS: ADM IN [facility] [address] [place] [address] END OF REPORT
--- NOTE | 2019-01-23 17:41 | NUR ---
165 22 GAUGE IV REMOVED FROM HIS RIGHT FOREARM. NO BLEEDING FROM SITE. CATHETER TIP INTACT. 2X2 GAUZE APPLIED AND SECURED WITH BANDAID. 1700 DISCHARGE INSTRUCTIONS PROVIDED TO PATIENT AND THE GRANDDAUGHTER AT BEDSIDE. PATIENT VERBALIZED UNDERSTANDING OF ALL INSTRUCTIONS PROVIDED. 170 ASSISTING PATIENT TO FINISH GET DRESSED WITH HIS DAUGTHER CALLED THE ROOM QUESTIONING ABOUT THE BREATHING TREATMENTS HE IS BEING SENT HOME ON. PATIENTS DAUGHTER KEPT THIS MOUNTER BRASS WIND INSTRUMENTS ON THE PHONE UNTIL 1729 BECAUSE SHE DOESN'T KNOW IF THE BREATHING TX IS WHAT MADE HIM HAVE STROKE LIKE SYMPTOMS Tuesday AND DOESN'T KNOW IF HE SHOULD HAVE THIS MEDICATION. NOBODY IS SURE WHAT CAUSED THE PATIENT TO HAVE THOSE SYMPTOMS. EXPLAINED THAT THE ELECTRICIAN TELEPHONE PRESCRIBED THIS MEDICATION HE FEELS THE PATIENT NEEDS IT AND IT IS UP TO YOU IF YOU ARE GOING TO LET THE PATIENT USE THIS MEDICATION AT HOME. THIS MOUNTER BRASS W[employer] INSTRUMENTS CAN ONLY EDUCATE TO WHAT THE PHYSICIANS WANT THE PATIENT TO TAKE AT HOME. THE CALLER, FEMALE WITH LAST NAME ED, THANKED THIS MOUNTER BRASS W[employer] INSTRUMENTS AND SAID SHE WOULD DISCUSS IT WITH ON TUESDAY AT THE PATIENTS APPT.
--- NOTE | 2019-01-23 17:48 | NUR ---
1740 PATIENT LEFT UNIT VIA WHEELCHAIR WITH ALL PERSONAL BELONGINGS. PATIENT DISCHARGED TO HOME WITH HIS GRANDDAUGHTER VIA PRIVATE CAR. PATIENT IN NO DISTRESS UPON LEAVING UNIT.
== END 2019-01-23 17:40 | disposition home or self-care (01) | DRG 291 ==
LOC: D.ER 12:55 → D.EDHOLD 15:07 → D.M2 15:07
PROVIDERS: Emergency Medicine; Internal Medicine Nephrology; Internal Medicine Pulmonary Disease; ADMIT Family Medicine Adult Medicine
DX: I11.0 Hypertensive heart disease with heart failure (principal); J96.21 Acute and chronic respiratory failure with hypoxia; I50.31 Acute diastolic (congestive) heart failure; N17.9 Acute kidney failure, unspecified; G93.40 Encephalopathy, unspecified; G47.33 Obstructive sleep apnea (adult) (pediatric); I48.91 Unspecified atrial fibrillation; Z68.35 Body mass index [BMI] 35.0-35.9, adult; I35.0 Nonrheumatic aortic (valve) stenosis; D50.9 Iron deficiency anemia, unspecified; E87.6 Hypokalemia; E66.01 Morbid (severe) obesity due to excess calories

== ENCOUNTER 2019-01-21 17:59 | Emergency (ER) | payer MEDICARE ==
[~2019-01-21] VITALS: Ht 182.9 cm; Wt 81.8 kg
[2019-01-21 18:03] VITALS: Ht 182.9 cm; Wt 81.8 kg
[2019-01-21 18:39] LABS: APTT 31.4 SECONDS (22.8-39.4); INR 1.23 (0.85-1.17); PROTIME 14.9 SECONDS (11.6-15.0)
[2019-01-21 18:41] LABS: BASOPHILS 0.1 % (0-2); EOSINOPHILS 1.1 % (0-7); HEMATOCRIT 40.8 % (42.0-54.0); HEMOGLOBIN 13.2 g/dL (13.5-17.5); IMMATURE GRANULOCYTES 0.1 % (0-5); LYMPHOCYTES 14.7 % (15-50); MCH 29.3 pg (26.0-34.0); MCHC 32.4 g/dL (31.0-37.0); MCV 90.5 fL (80.0-100.0); MONOCYTES 10.8 % (2-11); NEUTROPHILS 73.2 % (40-80); PLATELET COUNT 168 10x3/uL (130-400); RBC 4.51 10x6/uL (4.20-6.10); RDW 13.2 % (11.5-14.5)
[2019-01-21 18:51] LABS: ALBUMIN 3.5 g/dL (3.4-5.0); BILIRUBIN - TOTAL 1.88 mg/dL (0.2-1.3); CALCIUM 9.1 mg/dL (8.5-10.1); CARBON DIOXIDE 34.9 mmol/L (21.0-32.0); CREATININE - SERUM 1.1 mg/dL (0.6-1.3); PROTEIN - SERUM 7.8 g/dL (6.4-8.2)
[2019-01-21 18:54] LABS: ANION GAP 12.5 mmol/L (8-16); POTASSIUM - SERUM 4.4 mmol/L (3.5-5.1)
[2019-01-21 19:02] VITALS: BP 1056/60
== END 2019-01-21 19:05 | disposition other institution (70) ==
LOC: D.ER 17:59
PROVIDERS: Family Medicine
DX: G81.94 Hemiplegia, unspecified affecting left nondominant side (principal); R50.9 Fever, unspecified

== ENCOUNTER 2019-10-30 19:45 | Inpatient (IN) | payer MEDICARE ==
[~2019-10-30] VITALS: Ht 182.9 cm; Wt 118.2 kg
--- NOTE | ~2019-10-30 | EC ---
PATIENT:HARRY GOLDSMITH DATE OF SERVICE: 10/30/19 SEX: M MEDICAL RECORD: [id number] DATE OF : [birth year] LOCATION:D.M2 D.212 AGE OF PATIENT: 84 ADMISSION DATE: 10/30/19 REFERRING PHYSICIAN: INTERPRETING PHYSICIAN: KAT PIKE MD ECHOCARDIOGRAM REPORT ECHO CHARGES 4 ECHO COMPLETE Date: 10/31/19 CLINICAL DIAGNOSIS: AORTIC STENOSIS/CHF ECHOCARDIOGRAPHIC MEASUREMENTS (adult normal given) AC root (d.<3.7cm) 3.0 cm LV Septum d (<1.2 cm> 1.7 cm Valve Excursion 1.0 cm LV Septum (systole) 2.1 cm Left Atria (s.<4.0cm> 5.9 cm LVPW d(<1.2cm) 1.5 cm RV (d.<2.3cm) 2.9 cm LVPW (sytole) 2.0 cm LV diastole(<5.6CM) 4.8 cm MV E-F(>70mm/sec) cm LV systole 2.7 cm LVOT Diameter 1.8 cm MV exc.(>10mm) cm Est.ejection fraction (50-75%) % DOPPLER: LVIT cm/sec A 48.0 cm/sec E 98.0 cm/sec LA cm/sec RVSP 53.0 mmHg LVOT 78.0 cm/sec AOP1/2T m/s Asc. Ao 38.0 cm/sec RVOT 78.0 cm/sec RA cm/sec PA 122 cm/sec AV Gradient Peak 59.0 mmHg AV Mean 36.0 mmHg AV Area 0.6 cm MV Gradient Peak 14.0 mmHg MV Mean 3.7 mmHg MV Area cm COMMENTS: Leader Assembler: Sho TAPIADSOE Manager City: [address] Dr[address] TAPE# PACS Pericardial Effusion N DATE OF SERVICE: 10/31/2019 Adequate 2-D echo, color-flow and spectral Doppler, and M-mode. LVH is present. LV internal dimensions are normal. Wall motion is normal. EF is greater than or equal to 55%. Aortic valve is calcified with restriction of leaflet motion. Peak gradient 57 mmHg putting this in severe range. Left atrium is dilated. Mitral valve no prolapse. Mild MR. Right-sided chambers are grossly normal. Moderate TR. ECHOCARDIOGRAM REPORT [id number] HARRY GOLDSMITH TRANSINT:[id number] Voice Confirmation ID: [id number] DOCUMENT ID: [id number] KAT PIKE MD CC: [id number] DICTATION DATE: 10/31/19 154 CHANNEL PROGRAM MANAGER: 10/31/192227 ADM IN [facility] [address] [place] [id number]
--- NOTE | ~2019-10-30 | CN ---
PATIENT NAME:FRANC GOLDSMITH MEDICAL RECORD: [id number] : [birth year] LOCATION:[facility] D.2123 ADMIT DATE: 10/30/19 ACCOUNT: [id number] CONSULTING PHYSICIAN: KAT PIKE MD REFERRING PHYSICIAN: ALFONSO LOTT MD DATE OF CONSULTATION: 10/31/2019 HISTORY OF PRESENT ILLNESS: Franc Goldsmith is an 84-year-old gentleman with a history of aortic stenosis, moderate by previous echo, admitted with 3-4 day history of classic volume overload symptomology, began with dyspnea on exertion, progressive debbie orthopnea, PND. He had known cardiovascular history with a history of atrial fibrillation on sotalol NOAC for CVA prophylaxis. We are asked to see him concerning his cardiovascular status. PAST MEDICAL HISTORY: Includes: 1. History of aortic stenosis. 2. Sick sinus syndrome, status post permanent pacemaker placement. 3. Dyslipidemia. 4. Hypertension. MEDICATIONS: Include Demadex 20 mg p.o. day, sotalol 80 b.i.d., Crestor 5 three times a week, Imdur 30 every day, Xarelto 20 every day. ALLERGIES: NIACIN, CEFAZOLIN, LEVOFLOXACIN. SOCIAL HISTORY: Nonsmoker, nondrinker. Typically, he is able to care of all his ADLs except for the last 3-4 days. REVIEW OF SYSTEMS: The patient reports easy bruising but reports no swollen glands. The patient reports no fever, no night sweats, no significant weight gain, no significant weight loss. No significant exercise tolerance. The patient reports no dry eyes, no irritation, no vision change. Patient reports no difficulty hearing and no ear pain. Patient reports no frequent nose bleeds or nose and sinus problems. Patient reports on arm pain on exertion. No shortness of breath while lying down. No history of heart murmur. Patient reports no cough, no wheezing or coughing up blood. Patient reports no abdominal pain, no vomiting. Normal appetite. No diarrhea and not vomiting blood. No nausea and no constipation. Patient reports no incontinence. No difficulty urinating. No hematuria. No increased frequency. Patient reports no muscle aches. No weakness, no arthralgias, no back pain. No swelling of the extremities. Patient reports no abnormal mole, no jaundice, no rashes. Reports no loss of consciousness. No weakness and no numbness. No seizures, dizziness, or headaches. The patient reports no depression, no sleep disturbance, feeling safe in a relationship and no alcohol abuse. Patient reports on fatigue. Reports no runny nose or sinus pressure. No itching, no hives, and no frequent sneezing. PHYSICAL EXAMINATION: GENERAL: Pleasant gentleman in no acute distress, appears stated age, comfortable at rest. VITAL SIGNS: Blood pressure 158/97, pulse 60 and regular. HEENT: Normocephalic, atraumatic. NECK: No JVD or bruit. HEART: Regular, 2-3/6 systolic ejection murmur. LUNGS: Good air excursion, mildly decreased breath sounds. CONSULT REPORT [id number] FRANC GOLDSMITH ABDOMEN: Soft, nontender. EXTREMITIES: Pulses 2+. No edema. DIAGNOSTIC DATA: ECG shows underlying paced rhythm. IMPRESSION: Volume overload, questionable aortic stenosis, is progressing at this point. Certainly, if it is, could be considered a TAVR candidate down the road. In the interim, he is responding nicely to diuresis. We will add Aldactone to his current underlying regime. Recheck echocardiographic study. TRANSINT:[id number] Voice Confirmation ID: [id number] DOCUMENT ID: [id number] KAT PIKE MD CC: [id number] DICTATION DATE: 10/31/19 0851 BAGEL MAKER: 10/31/19 1016 [facility] [address] [place] [id number]
[~2019-10-30 19:45] MED LIST changes: +ALBUTEROL NEB; +BROVANA15 MCG/2 M INH; +IPRATROPIUM BROMIDE NEB; +ISOSORBIDE MONO30 M1 PO; +TAMIFLU75 MG PO; +XOPENEX 1.1.25 MG/3 INH; +ZITHROMAX500 MG PO
[2019-10-30 20:37] LABS: BASOPHILS 0.9 % (0-2); EOSINOPHILS 2.4 % (0-7); HEMATOCRIT 36.8 % (42.0-54.0); HEMOGLOBIN 11.6 g/dL (13.5-17.5); IMMATURE GRANULOCYTES 0.2 % (0-5); LYMPHOCYTES 26.4 % (15-50); MCH 29.4 pg (26.0-34.0); MCHC 31.5 g/dL (31.0-37.0); MCV 93.4 fL (80.0-100.0); MEAN PLATELET VOLUME 10.6 fL (7.4-10.4); MONOCYTES 16.5 % (2-11); NEUTROPHILS 53.6 % (40-80); PLATELET COUNT 151 10x3/uL (130-400); RBC 3.94 10x6/uL (4.20-6.10); RDW 13.4 % (11.5-14.5); WBC 4.7 10x3/uL (4.8-10.8)
[2019-10-30 20:51] LABS: APTT 41.8 SECONDS (22.8-39.4); INR 1.37 (0.85-1.17); PROTIME 16.3 SECONDS (11.6-15.0)
[2019-10-30 20:52] LABS: D-DIMER-QUANTITATIVE 1.87 ug/mLFEU (0.20-0.54)
[2019-10-30 20:55] LABS: CALC OSMOLALITY 277 mosm/kg (275-300); CALCIUM 9.2 mg/dL (8.5-10.1); CARBON DIOXIDE 33.8 mmol/L (21.0-32.0); CHLORIDE - SERUM 101 mmol/L (98-107); CREATININE - SERUM 1.1 mg/dL (0.6-1.3); POTASSIUM - SERUM 4.5 mmol/L (3.5-5.1); SODIUM 138 mmol/L (136-145); UREA NITROGEN 13 mg/dL (7-18); eGFR NON AFRICAN AMERICAN 68 mL/min (90-120)
[2019-10-30 20:56] LABS: GLUCOSE 126 mg/dL (74-106)
[2019-10-30 21:37] LABS: ALBUMIN 3.5 g/dL (3.4-5.0); ALKALINE PHOSPHATASE 323 U/L (46-116); ALT (SGPT) 29 U/L (10-68); BILIRUBIN - TOTAL 1.07 mg/dL (0.2-1.3); CKMB 1.7 U/L (0.0-3.6); CREATINE KINASE 65 UL (21-232); PRO BNP 1543 pg/mL (0-450); PROTEIN - SERUM 7.7 g/dL (6.4-8.2)
[2019-10-30 21:44] LABS: TROPONIN-I < 0.017 ng/mL (0.000-0.060)
[2019-10-30 21:45] VITALS: BP 165/69
[2019-10-30 22:45] VITALS: BP 160/69
[2019-10-31] VITALS (7 sets, daily range): BP systolic 107–160; BP diastolic 50–97; Ht 182.9 cm; Wt 118.2 kg
--- NOTE | 2019-10-31 00:01 | NUR ---
PATIENT ISWITHOUT COMPLAINTS AT THIS TIME, SON AT BEDSIDE.
--- NOTE | 2019-10-31 01:23 | NUR ---
RECIEVE REPORT FROM [facility], PT AAOX4, NO S/S OF RT DISTRESS AT THIS TIME. VSS WITH BP 160/76. PT DENIES ANY NEED FOR PAIN. PT PACED ON TELEMETRY. PIV R.WRIST PATENT AND INTACT. IV AZITHROMYCIN INFUSING ON ARRIVAL. URINAL @BEDSIDE. BLE SWELLING 2+ PITTING EDEMA. PT DENIES ANY FURTHER NEEDS AT THIS TIME. WILL CPOC. CL WITHIN REACH. WILL CPOC.
[2019-10-31 06:58] LABS: ALBUMIN 3.3 g/dL (3.4-5.0); ALKALINE PHOSPHATASE 300 U/L (46-116); ALT (SGPT) 24 U/L (10-68); BILIRUBIN - TOTAL 1.28 mg/dL (0.2-1.3); CALC OSMOLALITY 285 mosm/kg (275-300); CALCIUM 9.1 mg/dL (8.5-10.1); CARBON DIOXIDE 29.3 mmol/L (21.0-32.0); CHLORIDE - SERUM 100 mmol/L (98-107); CKMB 1.3 U/L (0.0-3.6); CREATINE KINASE 51 UL (21-232); CREATININE - SERUM 1.2 mg/dL (0.6-1.3); POTASSIUM - SERUM 4.3 mmol/L (3.5-5.1); PROTEIN - SERUM 7.3 g/dL (6.4-8.2); SODIUM 139 mmol/L (136-145); TROPONIN-I < 0.017 ng/mL (0.000-0.060); UREA NITROGEN 15 mg/dL (7-18); eGFR NON AFRICAN AMERICAN 61 mL/min (90-120)
[2019-10-31 07:00] LABS: GLUCOSE 231 mg/dL (74-106)
--- NOTE | 2019-10-31 07:10 | NUR ---
REPORT RECEIEVED FROM OVEN ATTENDANT AND PATIENT CARE ASSUMED. PATIENT LAYING IN BED ON BACK AWAKE, ALERT AND ORIENTED X 4. PATIENT DENIES ANY NEEDS OR PAIN. FAMILY MEMBER AT BS. WILL CONTINUE WITH PLAN OF CARE. SR UP X 2 BED IN LOW POSITION AND CALL LIGHT IN REACH.
[2019-10-31 07:47] LABS: BASOPHILS 0 % (0-2); EOSINOPHILS 0 % (0-7); HEMOGLOBIN 11.8 g/dL (13.5-17.5); IMMATURE GRANULOCYTES 0.2 % (0-5); LYMPHOCYTES 12.5 % (15-50); MCH 29.3 pg (26.0-34.0); MCHC 31.9 g/dL (31.0-37.0); MCV 91.8 fL (80.0-100.0); MEAN PLATELET VOLUME 10.6 fL (7.4-10.4); MONOCYTES 1.9 % (2-11); NEUTROPHILS 85.4 % (40-80); PLATELET COUNT 154 10x3/uL (130-400); RBC 4.03 10x6/uL (4.20-6.10); RDW 13.4 % (11.5-14.5); WBC 4.7 10x3/uL (4.8-10.8)
--- NOTE | 2019-10-31 13:12 | NUR ---
PATIENT LAYING IN BED ON BACK WITH EYES CLOSED AND BREATHING EVENLY. PATIENT IS STABLE AND VSS. WILL CONTINUE TO MONITOR. SR UP X 2 BED IN LOW POSITION AND CALL LIGHT IN REACH.
--- NOTE | 2019-10-31 21:10 | NUR ---
EVENING ROUNDS COMPLETED. VSS, AAOX3, VSS, NO S/S OF DISTRESS. CPAP ON. DAUGHTER AT BEDSIDE. UA SAMPLE RECIEVED. PT DENIES ANY FURTHER NEEDS AT THIS TIME. WILL CPOC.
[2019-10-31 21:52] LABS: APPEARANCE CLEAR (CLEAR); BILIRUBIN NEGATIVE (NEGATIVE); COLOR YELLOW (YELLOW); GLUCOSE 1000 mg/dL (NEGATIVE); KETONE NEGATIVE (NEGATIVE); NITRITE NEGATIVE (NEGATIVE); PROTEIN NEGATIVE (NEGATIVE); UROBILINOGEN NORMAL (NORMAL)
[2019-11-01 04:00] VITALS: BP 122/66
[2019-11-01 05:56] LABS: ANION GAP 9.4 mmol/L (8-16); CALCIUM 8.6 mg/dL (8.5-10.1); CARBON DIOXIDE 32.4 mmol/L (21.0-32.0); CREATININE - SERUM 1.3 mg/dL (0.6-1.3); POTASSIUM - SERUM 3.8 mmol/L (3.5-5.1)
[2019-11-01 05:59] LABS: HEMOGLOBIN 11.2 g/dL (13.5-17.5); LYMPHOCYTES 17.9 % (15-50); MCH 29.7 pg (26.0-34.0); MCHC 32.9 g/dL (31.0-37.0); MCV 90.2 fL (80.0-100.0); MEAN PLATELET VOLUME 10.7 fL (7.4-10.4); NEUTROPHILS 65.4 % (40-80); PLATELET COUNT 131 10x3/uL (130-400); RBC 3.77 10x6/uL (4.20-6.10); RDW 13.4 % (11.5-14.5)
[2019-11-01 06:28] LABS: WBC 6.5 10x3/uL (4.8-10.8)
[2019-11-01 08:03] VITALS: BP 122/63
[2019-11-01 12:19] VITALS: BP 134/60
--- NOTE | 2019-11-01 15:12 | NUR ---
PATIENT IS STABLE AND VSS. PATIENT DENIES ANY NEEDS OR PAIN. SON AT BS. WILL CONTINUE TO MONITOR. SR UPX 2 BED IN LOW POSITION AND CALL LIGHT IN REACH.
[2019-11-01 16:10] VITALS: BP 135/63
[2019-11-01 20:00] VITALS: BP 106/64
--- NOTE | 2019-11-01 23:18 | NUR ---
EVENING ROUNDS COMPLETED. VSS, AAOX3, NO S/S OF RESP DISTRESS. FAMILY AT BEDSIDE. CPAP AT BEDSIDE. PT DENIES ANY NEED FOR PAIN. WILL CPOC. CL WITHIN REACH.
[2019-11-02] VITALS: BP 144/72
[2019-11-02 04:00] VITALS: BP 153/77
--- NOTE | 2019-11-02 04:46 | NUR ---
FOUND PT WALKING AROUND IN HIS ROOM WITH MINIMAL AMOUNT OF BLOOD FROM IV SITE. PT STATES "I MIGHT HAVE PULLED OUT MY IV WHEN I WAS ASLEEP." HELP STOP THE BLEEDING, AND CLEANED SITE AND RESTARTED A NEW PIV 22G X1 STICK ON R.HAND. PROVIDED PT WITH FRESH BLANKET AND LINEN. PT VOICED THANKS. DAUGHTER AT BEDSIDE. 02 @ 5L. WILL CTM.
[2019-11-02 06:06] LABS: BASOPHILS 0.5 % (0-2); EOSINOPHILS 4.4 % (0-7); HEMATOCRIT 37.8 % (42.0-54.0); HEMOGLOBIN 12.2 g/dL (13.5-17.5); IMMATURE GRANULOCYTES 0.4 % (0-5); LYMPHOCYTES 19.8 % (15-50); MCH 29.4 pg (26.0-34.0); MCHC 32.3 g/dL (31.0-37.0); MCV 91.1 fL (80.0-100.0); MEAN PLATELET VOLUME 10.5 fL (7.4-10.4); MONOCYTES 16.6 % (2-11); NEUTROPHILS 58.3 % (40-80); RBC 4.15 10x6/uL (4.20-6.10); RDW 13.5 % (11.5-14.5); WBC 5.7 10x3/uL (4.8-10.8)
[2019-11-02 06:08] LABS: CALCIUM 9.5 mg/dL (8.5-10.1); CARBON DIOXIDE 33.9 mmol/L (21.0-32.0); CREATININE - SERUM 1.3 mg/dL (0.6-1.3); POTASSIUM - SERUM 3.9 mmol/L (3.5-5.1)
[2019-11-02 06:21] LABS: PLATELET COUNT 158 10x3/uL (130-400)
[2019-11-02 08:00] VITALS: BP 159/72
--- NOTE | 2019-11-02 08:15 | NUR ---
ALERT AND ORIENTED. UP AB FRANCOIS. DENIES ANY NEEDS. RIGHT FA SL. TELEMERTY SHOWS PACED RHYTHM. DENIES ANY NEEDS. WILL MONITOR
--- NOTE | 2019-11-02 11:40 | NUR ---
PT DISCHARGED, IV DCD WITH TIP INTACT. INSTRUCTIONS GIVEN. TO PRIVATE CAR PER WHEELCHAIR
== END 2019-11-02 11:58 | disposition home or self-care (01) | DRG 291 ==
LOC: D.ER 19:45 → D.M2 22:48
PROVIDERS: Family Medicine; ADMIT Internal Medicine Nephrology; ATTEND Internal Medicine Nephrology
DX: I11.0 Hypertensive heart disease with heart failure (principal); J96.21 Acute and chronic respiratory failure with hypoxia; I08.2 Rheumatic disorders of both aortic and tricuspid valves; D64.9 Anemia, unspecified; G47.33 Obstructive sleep apnea (adult) (pediatric); I25.10 Atherosclerotic heart disease of native coronary artery without angina pectoris; E78.5 Hyperlipidemia, unspecified; I48.91 Unspecified atrial fibrillation; I50.33 Acute on chronic diastolic (congestive) heart failure; Z95.0 Presence of cardiac pacemaker

== ENCOUNTER 2020-01-09 14:03 | Inpatient (IN) | payer MEDICARE ==
[~2020-01-09] VITALS: Ht 185.4 cm; Wt 113.4 kg
[2020-01-09 14:58] VITALS: BP 113/56
[2020-01-09 15:50] LABS: BASOPHILS 0.9 % (0-2); EOSINOPHILS 6.5 % (0-7); HEMATOCRIT 33.6 % (42.0-54.0); IMMATURE GRANULOCYTES 0.2 % (0-5); MCH 28.7 pg (26.0-34.0); MCHC 32.7 g/dL (31.0-37.0); MCV 87.7 fL (80.0-100.0); MEAN PLATELET VOLUME 9.8 fL (7.4-10.4); MONOCYTES 11.2 % (2-11); NEUTROPHILS 62.2 % (40-80); PLATELET COUNT 170 10x3/uL (130-400); RBC 3.83 10x6/uL (4.20-6.10); RDW 13.8 % (11.5-14.5); WBC 5.5 10x3/uL (4.8-10.8)
[2020-01-09 16:05] LABS: APPEARANCE CLEAR (CLEAR); BILIRUBIN NEGATIVE (NEGATIVE); COLOR YELLOW (YELLOW); GLUCOSE NEGATIVE (NEGATIVE); KETONE NEGATIVE (NEGATIVE); NITRITE NEGATIVE (NEGATIVE); PROTEIN NEGATIVE (NEGATIVE); UROBILINOGEN NORMAL (NORMAL)
[2020-01-09 16:52] LABS: ALKALINE PHOSPHATASE 304 U/L (30-120); ALT (SGPT) 19 U/L (10-68); BILIRUBIN - TOTAL 0.97 mg/dL (0.2-1.3); CALC OSMOLALITY 279 mosm/kg (275-300); CALCIUM 8.8 mg/dL (8.5-10.1); CARBON DIOXIDE 30.1 mmol/L (21.0-32.0); CHLORIDE - SERUM 99 mmol/L (98-107); CKMB 1.4 U/L (0.0-3.6); CREATINE KINASE 58 UL (21-232); CREATININE - SERUM 1.1 mg/dL (0.6-1.3); GLUCOSE 185 mg/dL (74-106); POTASSIUM - SERUM 4.3 mmol/L (3.5-5.1); PRO BNP 1172 pg/mL (0-450); SODIUM 136 mmol/L (136-145); UREA NITROGEN 22 mg/dL (7-18); eGFR NON AFRICAN AMERICAN 68 mL/min (90-120)
[2020-01-09 16:53] LABS: TROPONIN-I < 0.017 ng/mL (0.000-0.060)
--- NOTE | 2020-01-09 21:45 | NUR ---
LYING IN BED. ALERT AND ORIENTED X4. RESP IRREG. CPAP IN USE. BBS CTA BUT DIMINISHED IN RT LOBES. DENIES COUGHING. EDEMA NOTED TO BLE. TELEMETRY SHOWS PACED 60. SALINE LOCK NOTED TO LT WRIST. DENIES PAIN. SON AT BEDSIDE. EXPLAINED STRICT I/O TO PT AND SON. THEY VERBALIZED UNDERSTANDING. CL IN REACH.
[2020-01-10 00:16] VITALS: BP 135/67
--- NOTE | 2020-01-10 03:57 | NUR ---
HAS RESTED WELL SO FAR THIS SHIFT. NO DISTRESS. CL IN REACH.
[2020-01-10 04:12] VITALS: BP 125/63
[2020-01-10 06:29] LABS: ANION GAP 11.5 mmol/L (8-16); CALCIUM 9.2 mg/dL (8.5-10.1); CARBON DIOXIDE 31.4 mmol/L (21.0-32.0); CREATININE - SERUM 1.1 mg/dL (0.6-1.3); POTASSIUM - SERUM 3.9 mmol/L (3.5-5.1)
--- NOTE | 2020-01-10 07:20 | NUR ---
PATIENT REPORT RECIEVED, ASSUMED CARE. PATIENT IN BED WITH EYES CLOSED RESTING QUIETL. CPAP ON. FAMILY AT BEDSIDE. CALL LIGHT WITHIN REACH.
[2020-01-10 07:46] LABS: INR 1.21 (0.85-1.17); PROTIME 15.2 SECONDS (11.6-15.0)
[2020-01-10 08:47] VITALS: BP 123/60
[2020-01-10 10:37] VITALS: Ht 185.4 cm; Wt 113.4 kg
[2020-01-10 12:32] LABS: BASOPHILS 1.8 % (0-2); HEMATOCRIT 35.2 % (42.0-54.0); HEMOGLOBIN 11.3 g/dL (13.5-17.5); IMMATURE GRANULOCYTES 0.2 % (0-5); LYMPHOCYTES 21.5 % (15-50); MCH 28.8 pg (26.0-34.0); MCHC 32.1 g/dL (31.0-37.0); MCV 89.6 fL (80.0-100.0); MEAN PLATELET VOLUME 9.8 fL (7.4-10.4); MONOCYTES 14.9 % (2-11); NEUTROPHILS 52.6 % (40-80); PLATELET COUNT 187 10x3/uL (130-400); RBC 3.93 10x6/uL (4.20-6.10); RDW 13.8 % (11.5-14.5); WBC 4.6 10x3/uL (4.8-10.8)
[2020-01-10 12:55] VITALS: BP 120/59
--- NOTE | 2020-01-10 15:40 | NUR ---
PATIENT UP IN HALLWAY AMBULATING WITH FAMILY
[2020-01-10 16:35] VITALS: BP 131/65
--- NOTE | 2020-01-10 17:01 | NUR ---
PATIENT UP IN CHAIR AT THIS TIME. NO COMPLAINTS OR SIGNS OF DISTRESS. FAMILY AT BEDSIDE. CALL LIGHT WITHIN REACH.
[2020-01-10 20:00] VITALS: BP 131/61
[2020-01-11] VITALS: BP 133/58
--- NOTE | 2020-01-11 01:49 | NUR ---
PT RESTING IN BED. EYES CLOSED. NO SIGNS OF DISTRESS. BREATHING EVEN AND UNLABORED. IV SITE LT WRIST DRESSING CLEAN DRY AND INTACT. NO SIGNS OF INFECITON OR INFULTRATION. LUNG SOUNDS CLEAR. RT LOWER LOBE DIMINISHED. BOWEL SOUNDS ACTIVE. SOME LOWER LEG SWELLING PRESENT. WILL CONTINUE PLAN OF CARE. CALL LIGHT IN REACH. BED LOWERED AND LOCKED. BED RAILS UPX2. GRANDDAUGHTER AT BEDSIDE.
[2020-01-11 04:00] VITALS: BP 137/68
--- NOTE | 2020-01-11 04:36 | NUR ---
I have reviewed this patient and I concur with the Shift Assessment completed by the Licensed Practical Nurse today this shift.
[2020-01-11 05:05] LABS: BASOPHILS 1.1 % (0-2); EOSINOPHILS 8.9 % (0-7); HEMATOCRIT 37.2 % (42.0-54.0); IMMATURE GRANULOCYTES 0.4 % (0-5); LYMPHOCYTES 24.1 % (15-50); MCH 28.8 pg (26.0-34.0); MCHC 32.3 g/dL (31.0-37.0); MCV 89.2 fL (80.0-100.0); MEAN PLATELET VOLUME 9.8 fL (7.4-10.4); MONOCYTES 14.3 % (2-11); NEUTROPHILS 51.2 % (40-80); PLATELET COUNT 205 10x3/uL (130-400); RBC 4.17 10x6/uL (4.20-6.10); RDW 13.8 % (11.5-14.5); WBC 4.7 10x3/uL (4.8-10.8)
[2020-01-11 05:14] LABS: ANION GAP 9.1 mmol/L (8-16); CALCIUM 9.2 mg/dL (8.5-10.1); CARBON DIOXIDE 33.9 mmol/L (21.0-32.0); CREATININE - SERUM 1.1 mg/dL (0.6-1.3)
[2020-01-11 08:01] LABS: INR 1.13 (0.85-1.17); PROTIME 14.4 SECONDS (11.6-15.0)
[2020-01-11 08:02] LABS: APTT 41.9 SECONDS (22.8-39.4)
--- NOTE | 2020-01-11 08:40 | NUR ---
DARWIN ENT TO GET THORACENTESIS
[2020-01-11 09:43] VITALS: BP 168/80
--- NOTE | 2020-01-11 10:30 | NUR ---
PATIENT IN ROOM WITH IV INTACT. NO COMPLAINTS OR SIGNS OF DISTRESS. VS STABLE. FAMILY AT BEDSIDE. CALL LIGHT WITHIN REACH.
--- NOTE | 2020-01-11 11:12 | NUR ---
PATIENT SITTING UP IN CHAIR EATING LUNCH AT THIS TIME. NO COMPLAINTS. IV INTACT. CALL LIGHT WITHIN REACH.
[2020-01-11 13:21] LABS: EOS BF 36 %; MACROPHAGES BF 33 %; MESOTHELIALS BF 7 %; NEUT - BF 10 %
--- NOTE | 2020-01-11 14:15 | NUR ---
PATIENT RECIEVED DC INSTRUCTIONS AND VERBALIZED UNDERSTANDING. NO QUESTIONS AT THIS TIME. IV REMOVED WITH CATH TIP INTACT. DAUGHTER AT BEDSIDE. WAITING ON FOR DC. CALL LIGHT WITHIN REACH.
[2020-01-11 14:53] LABS: PROTEIN - BODY FLUID 3.7 G/DL
--- NOTE | 2020-01-11 14:59 | MORECARE ---
CASE MANAGEMENT DISCHARGE SUMMARY PATIENT: HARRY GOLDSMITH UNIT: [id number] ADM DATE: 01/09/20 AGE: 84 : 37 SEX: M ROOM/BED: D.2215 AUTHOR: KIRSTEN GARCIA PHYSICIAN: REFERRING PHYSICIAN: ALFONSO LOTT MD DATE OF SERVICE: 01/11/20 Discharge Plan Patient Name: HARRY GOLDSMITH [facility] [facility] 1935 Planned Disposition: Home Anticipated Discharge Date: Discharge Date: Expected LOS: Initial Reviewer: [email or web address] Initial Review Date: 01/09/2020 Generated: 01/11/20 3:59 pm Patient Name: HARRY GOLDSMITH Page [phone] at 145 All edits/amendments must be made on the electronic document DICTATION DATE: 01/11/201458 COMPETITIVE ATHLETE: CORNEL 01/11/20 1459 RPT#: [id number] DC DATE: STATUS: ADM IN [facility] [address] [place] [address] END OF REPORT
--- NOTE | 2020-01-11 15:08 | MORECARE ---
CASE MANAGEMENT DISCHARGE SUMMARY PATIENT: HARRY GOLDSMITH UNIT: [id number] ADM DATE: 01/09/20 AGE: 84 : 37 SEX: M ROOM/BED: D.2215 AUTHOR: RADHA,DOC PHYSICIAN: REFERRING PHYSICIAN: ALFONSO LOTT MD DATE OF SERVICE: 01/11/20 Discharge Plan Patient Name: HARRY GOLDSMITH Facility: [facility]:[place] : 1935 Planned Disposition: Home Anticipated Discharge Date: Discharge Date: Expected LOS: Initial Reviewer: [email or web address] Initial Review Date: 01/09/2020 Generated: 01/11/20 4:07 pm Comments DCP- Discharge Planning Updated by [email or web address]: Margareth Zepeda on 01/11/20 2:[address] Patient Name: HARRY GOLDSMITH Admission Status: Elective Accout number: [id number] Admission Date: 01-09-2020 : 1935 Admission Diagnosis: Attending: ALFONSO LOTT Current LOS: 2 Anticipated DC Date: Planned Disposition: Home Primary Insurance: MEDICARE A & B Discharge Planning Comments: CM met with patient to complete initial dc planning assessment. CM educated patient on the CM role and verbal consent given by patient to complete assessment. Patient lives at home with family where he is independent with his care. At discharge patient plans to return home and feels this is a safe discharge. CM discussed availability of home health, rehab services, and medical equipment. He has a cane, O2, Neb that he does not use & a CPAP that he does. He didn't need or want any home services. Patient denied known discharge needs at this time. CM will continue to follow and will assist as needed with dc plans/needs. Source Water Protection Specialist: Margareth Zepeda DCPIA - Discharge Planning Initial Assessment Updated by [email or web address]: Margareth Zepeda on 01/11/20 3:00 pm * Is the patient Alert and Oriented? Yes * How many steps to enter\exit or inside your home? RAMP * PCP MELVIN * Pharmacy [facility] * Preadmission Environment Home with Family * ADLs Independent * Equipment Cane CPAP * List name and contact numbers for known caregivers / representatives who currently or will assist patient after discharge: AVANI ATTILAFAISAL [phone] * Verbal permission to speak to the caregivers and representatives has been obtained from the patient. N/A * Community resources currently utilized None * Additional services required to return to the preadmission environment? No * Can the patient safely return to the preadmission environment? Yes * Has this patient been hospitalized within the prior 30 days at any hospital? No Last DP export: 01/11/20 1:59 p Patient Name: HARRY GOLDSMITH Page 49071 at 1508 All edits/amendments must be made on the electronic document DICTATION DATE: 01/11/20 150 HAMMER SMITH: CORNEL 01/11/201506 RPT#: [id number] DC DATE: STATUS: ADM IN [facility] [address] [place] [address] END OF REPORT
--- NOTE | 2020-01-13 18:34 | MORECARE ---
CASE MANAGEMENT DISCHARGE SUMMARY PATIENT: HARRY GOLDSMITH UNIT: [id number] ADM DATE: 01/09/20 AGE: 84 : 37 SEX: M ROOM/BED: D.2215 AUTHOR: RADHA,DOC PHYSICIAN: REFERRING PHYSICIAN: ALFONSO LOTT MD DATE OF SERVICE: 01/13/20 Discharge Plan Patient Name: HARRY GOLDSMITH Facility: [facility]:[place] : 1935 Planned Disposition: Home Anticipated Discharge Date: Discharge Date: 01/11/2020 Expected LOS: Initial Reviewer: [email or web address] Initial Review Date: 01/09/2020 Generated: 01/13/20 7:33 pm Comments DCP- Discharge Planning Updated by [email or web address]: Margareth Zepeda on 01/11/20 2:[address] Patient Name: HARRY GOLDSMITH Admission Status: Elective Accout number: [id number] Admission Date: 01-09-2020 : 1935 Admission Diagnosis: Attending: ALFONSO LOTT Current LOS: 2 Anticipated DC Date: Planned Disposition: Home Primary Insurance: MEDICARE A & B Discharge Planning Comments: CM met with patient to complete initial dc planning assessment. CM educated patient on the CM role and verbal consent given by patient to complete assessment. Patient lives at home with family where he is independent with his care. At discharge patient plans to return home and feels this is a safe discharge. CM discussed availability of home health, rehab services, and medical equipment. He has a cane, O2, Neb that he does not use & a CPAP that he does. He didn't need or want any home services. Patient denied known discharge needs at this time. CM will continue to follow and will assist as needed with dc plans/needs. Cloth Cutting Inspector: Margareth Zepeda DCPIA - Discharge Planning Initial Assessment Updated by [email or web address]: Margareth Zepeda on 01/11/20 3:00 pm * Is the patient Alert and Oriented? Yes * How many steps to enter\exit or inside your home? RAMP * PCP MELVIN * Pharmacy [facility] * Preadmission Environment Home with Family * ADLs Independent * Equipment Cane CPAP * List name and contact numbers for known caregivers / representatives who currently or will assist patient after discharge: AVANI AIKENFAISAL [phone] * Verbal permission to speak to the caregivers and representatives has been obtained from the patient. N/A * Community resources currently utilized None * Additional services required to return to the preadmission environment? No * Can the patient safely return to the preadmission environment? Yes * Has this patient been hospitalized within the prior 30 days at any hospital? No Last DP export: 01/11/20 2:08 p Patient Name: HARRY GOLDSMITH Page 17610 at 1834 All edits/amendments must be made on the electronic document DICTATION DATE: 01/13/201832 OPTICIAN MANAGER: CORNEL 01/13/201832 RPT#: [id number] DC DATE:01/11/20 STATUS: DIS IN [facility] [address] [place] [address] END OF REPORT
== END 2020-01-11 14:30 | disposition home or self-care (01) | DRG 292 ==
LOC: D.SDCHOLD 14:03 → D.MS 14:08
PROVIDERS: Family Medicine; Specialist; ADMIT Internal Medicine Nephrology; ATTEND Internal Medicine Nephrology
PROC: 0W9930Z Drainage of Right Pleural Cavity with Drainage Device, Percutaneous Approach (ICD-10-PCS; principal; 2020-01-11 08:33)
DX: I11.0 Hypertensive heart disease with heart failure (principal); J90 Pleural effusion, not elsewhere classified; I50.33 Acute on chronic diastolic (congestive) heart failure; I48.91 Unspecified atrial fibrillation; I25.10 Atherosclerotic heart disease of native coronary artery without angina pectoris; E11.9 Type 2 diabetes mellitus without complications; E78.5 Hyperlipidemia, unspecified; G25.0 Essential tremor; K22.70 Barrett's esophagus without dysplasia

== ENCOUNTER 2020-04-25 10:45 | Outpatient (CLI) | payer MEDICARE ==
[~2020-04-25] VITALS: Ht 182.9 cm; Wt 109.5 kg
[2020-04-25 11:22] LABS: BASOPHILS 0.8 % (0-2); EOSINOPHILS 2.5 % (0-7); HEMATOCRIT 31.4 % (42.0-54.0); HEMOGLOBIN 9.8 g/dL (13.5-17.5); IMMATURE GRANULOCYTES 0.4 % (0-5); LYMPHOCYTES 14.1 % (15-50); MCH 28.1 pg (26.0-34.0); MCHC 31.2 g/dL (31.0-37.0); MEAN PLATELET VOLUME 9.8 fL (7.4-10.4); MONOCYTES 15.3 % (2-11); NEUTROPHILS 66.9 % (40-80); PLATELET COUNT 238 10x3/uL (130-400); RBC 3.49 10x6/uL (4.20-6.10); RDW 14.4 % (11.5-14.5); WBC 5.1 10x3/uL (4.8-10.8)
[2020-04-25 11:36] LABS: APTT 35.4 SECONDS (22.8-39.4); INR 1.18 (0.85-1.17); PROTIME 14.9 SECONDS (11.6-15.0)
[2020-04-25 11:38] LABS: ANION GAP 9.6 mmol/L (8-16); CALCIUM 8.8 mg/dL (8.5-10.1); CARBON DIOXIDE 33.1 mmol/L (21.0-32.0); CREATININE - SERUM 1.2 mg/dL (0.6-1.3); POTASSIUM - SERUM 4.7 mmol/L (3.5-5.1)
[2020-04-25 12:36] VITALS: BP 140/73; Ht 182.9 cm; Wt 109.5 kg
[2020-04-25 16:43] LABS: EOS BF 1 %; MACROPHAGES BF 4 %; MESOTHELIALS BF 1 %; NEUT - BF 10 %
== END 2020-04-25 17:00 | disposition home or self-care (01) ==
LOC: D.SP 10:45 → D.CT 13:00 → D.SP 13:00
PROVIDERS: Radiology Diagnostic Radiology; ATTEND Family Medicine
DX: J90 Pleural effusion, not elsewhere classified (principal); E11.9 Type 2 diabetes mellitus without complications; E78.5 Hyperlipidemia, unspecified; I48.91 Unspecified atrial fibrillation; I11.0 Hypertensive heart disease with heart failure; I50.9 Heart failure, unspecified; Z79.84 Long term (current) use of oral hypoglycemic drugs; J44.9 Chronic obstructive pulmonary disease, unspecified

== ENCOUNTER 2020-08-04 18:53 | Inpatient (IN) | payer MEDICARE ==
[~2020-08-04] VITALS: Ht 182.9 cm; Wt 113.4 kg
[2020-08-04 19:32] VITALS: BP 130/94
[2020-08-04 19:42] LABS: BASOPHILS 0.4 % (0-2); EOSINOPHILS 0.7 % (0-7); HEMATOCRIT 39.3 % (42.0-54.0); HEMOGLOBIN 12.2 g/dL (13.5-17.5); IMMATURE GRANULOCYTES 0.3 % (0-5); LYMPHOCYTES 9.4 % (15-50); MCV 90.3 fL (80.0-100.0); MEAN PLATELET VOLUME 9.8 fL (7.4-10.4); MONOCYTES 7.2 % (2-11); RBC 4.35 10x6/uL (4.20-6.10); RDW 15.6 % (11.5-14.5)
[2020-08-04 19:45] LABS: PLATELET COUNT 189 10x3/uL (130-400)
[2020-08-04 19:54] LABS: ANION GAP 14.1 mmol/L (8-16); CALCIUM 9.2 mg/dL (8.5-10.1); CARBON DIOXIDE 29.6 mmol/L (21.0-32.0); CREATININE - SERUM 1.5 mg/dL (0.6-1.3); POTASSIUM - SERUM 4.7 mmol/L (3.5-5.1)
[2020-08-04 19:56] LABS: APTT 41.5 SECONDS (22.8-39.4); INR 1.76 (0.85-1.17); PROTIME 20.4 SECONDS (11.6-15.0)
[2020-08-04 20:01] VITALS: BP 128/59
[2020-08-04 20:01] LABS: D-DIMER-QUANTITATIVE 3.72 ug/mLFEU (0.20-0.54)
[2020-08-04] MEDS ORDERED: ACCUPRIL10 MG PO (20:09)
[2020-08-04] MEDS ORDERED: KLOR-CON M2020 MEQ PO (20:11)
[2020-08-04] MEDS ORDERED: VITAMIN D3 (20:13)
[2020-08-04 20:18] LABS: ALBUMIN 3.2 g/dL (3.4-5.0); BILIRUBIN - TOTAL 1.28 mg/dL (0.2-1.3); C-REACTIVE PROTEIN 4.4 mg/dL (0.0-0.9); PROTEIN - SERUM 7.8 g/dL (6.4-8.2); THYROID STIMULATING HORMONE 1.28 uIU/mL (0.36-3.74)
[2020-08-04 20:22] LABS: TROPONIN-I 0.016 ng/mL (0.000-0.060)
[2020-08-04 20:46] VITALS: BP 122/47
--- NOTE | 2020-08-04 20:46 | NUR ---
PLACED ON HIGH FLOW NON REBREATHER AT THIS TIME D/T TACHYPNEA AND LOW SPO2 92% TASHA SAUNDERS APRN NOTIFIED.
[2020-08-04 20:55] LABS: BILIRUBIN NEGATIVE (NEGATIVE); KETONE NEGATIVE (NEGATIVE); NITRITE NEGATIVE (NEGATIVE); UROBILINOGEN NORMAL (NORMAL)
[2020-08-04 21:00] VITALS: BP 119/59
[2020-08-04 23:00] VITALS: BP 129/62
[2020-08-05] VITALS (21 sets, daily range): BP systolic 79–164; BP diastolic 37–119; Ht 182.9 cm; Wt 113.4 kg
[2020-08-05 04:29] LABS: BASOPHILS 0 % (0-2); EOSINOPHILS 0 % (0-7); IMMATURE GRANULOCYTES 0.2 % (0-5); LYMPHOCYTES 6.1 % (15-50); MCH 27.6 pg (26.0-34.0); MCHC 30.6 g/dL (31.0-37.0); MCV 90.2 fL (80.0-100.0); MEAN PLATELET VOLUME 9.6 fL (7.4-10.4); MONOCYTES 4.7 % (2-11); PLATELET COUNT 199 10x3/uL (130-400); RDW 15.4 % (11.5-14.5)
[2020-08-05 04:32] LABS: HEMATOCRIT 30.4 % (42.0-54.0); HEMOGLOBIN 9.3 g/dL (13.5-17.5); RBC 3.37 10x6/uL (4.20-6.10); WBC 10.4 10x3/uL (4.8-10.8)
[2020-08-05 04:57] LABS: ANION GAP 14.3 mmol/L (8-16); BILIRUBIN - TOTAL 1.25 mg/dL (0.2-1.3); C-REACTIVE PROTEIN 6.4 mg/dL (0.0-0.9); CALCIUM 9.3 mg/dL (8.5-10.1); CARBON DIOXIDE 29.2 mmol/L (21.0-32.0); CREATININE - SERUM 1.7 mg/dL (0.6-1.3); PHOSPHOROUS 4.5 mg/dL (2.5-4.9); POTASSIUM - SERUM 4.5 mmol/L (3.5-5.1); PROTEIN - SERUM 7.5 g/dL (6.4-8.2)
--- NOTE | 2020-08-05 11:21 | NUR ---
SPOKE WITH PTS , UPDATES PROVIDED.
--- NOTE | 2020-08-05 11:22 | NUR ---
SPOKE WITH PTS , UPDATES PROVIDED.
--- NOTE | 2020-08-05 15:28 | NUR ---
FULL CHD BATH GIVEN. INT CONFUSION NOTED. FULL BED LINEN CHANGE. PT TOLERATED WELL. WILL CONT POC.
--- NOTE | 2020-08-05 17:30 | NUR ---
PT CONFUSED. PT SOUNDED BED ALARM AND PT STANDING AT THE SIDE OF THE BED. MULTIPLE TIMES TO REIORIENT THE PT WITH NO SUCCESS. SPOKE WITH CHARGE NURSE AND WAITING FOR A BED TO BE AVALIBLE INFRONT OF THE NURSING STATION. ONE NOT AVALIBLE AT THIS TIME. SPOKE WITH . SOFT RESTRAINTS NOW FOR PATIENT SAFTEY.
[2020-08-06] VITALS (16 sets, daily range): BP systolic 115–149; BP diastolic 60–120
[2020-08-06 05:04] LABS: BASOPHILS 0.1 % (0-2); EOSINOPHILS 0 % (0-7); HEMOGLOBIN 9.9 g/dL (13.5-17.5); IMMATURE GRANULOCYTES 0.4 % (0-5); LYMPHOCYTES 3.4 % (15-50); MCH 27.7 pg (26.0-34.0); MCHC 30.9 g/dL (31.0-37.0); MCV 89.6 fL (80.0-100.0); MONOCYTES 7.3 % (2-11); NEUTROPHILS 88.8 % (40-80); RBC 3.57 10x6/uL (4.20-6.10); RDW 15.3 % (11.5-14.5)
[2020-08-06 05:21] LABS: PLATELET COUNT 241 10x3/uL (130-400); WBC 14.8 10x3/uL (4.8-10.8)
[2020-08-06 05:30] LABS: ANION GAP 14.9 mmol/L (8-16); BILIRUBIN - TOTAL 0.86 mg/dL (0.2-1.3); CALCIUM 9.1 mg/dL (8.5-10.1); CREATININE - SERUM 1.5 mg/dL (0.6-1.3); MAGNESIUM - SERUM 2.2 mg/dL (1.8-2.4); PHOSPHOROUS 5.3 mg/dL (2.5-4.9); POTASSIUM - SERUM 3.9 mmol/L (3.5-5.1); PROTEIN - SERUM 7.6 g/dL (6.4-8.2)
--- NOTE | 2020-08-06 08:15 | NUR ---
PT CONFUSED THIS AM. RESTRAINTS ARE ON AND ACTIVE. PT TRIED TO LEAVE THE BED STATING THAT HE IS GOING HOME AND THIS NURSE AND ANOTHER NURSE PULLED PATIENT UP IN BED RETIED PTS RESTRAINTS AND THIS NURSE REPLACED PATIENTS STAT LOCK TO PREVENT PT FROM PULLING OUT DERAS CATH
--- NOTE | 2020-08-06 09:56 | NUR ---
Nutrition follow-up: Pt continues NPO? confused and restrained per nurse Labs reviewed Wt: 249# Recommend starting consistent CHO diet today with assistance RDN following.
--- NOTE | 2020-08-06 19:28 | NUR ---
PT LYING IN BED WATCHING TV. BILATERAL WRIST RESTRAINTS REMOVED AND ROM PERFORMED. WRIST RESTRAINTS PLACED BACK ON PT. NO BREAKDOWN FROM RESTRAINTS NOTED. HE HAS KERLEX AROUND HIS RIGHT FOREARM COVERING A SKIN TEAR. IT IS CDI. HE IS ALERT AND ORIENTED TO SELF. CONFUSED TO PLACE, TIME AND SITUATION. ASSISTED WITH REPOSITIONING. BED IS LOW AND CALL LIGHT WITHIN REACH.
[2020-08-07] VITALS (23 sets, daily range): BP systolic 112–163; BP diastolic 56–90
--- NOTE | 2020-08-07 00:52 | NUR ---
O2 SATS DROPPING DOWN INTO THE 70S ON 11L HIGH FLOW NASAL CANNULA. NATERT PLACED PT ON 15L NON REBREATHER AND 02 SAT IS NOW 92%. VSS. PT ASSISTED UP IN THE BED. BED IS LOW AND CALL LIGHT WITHIN REACH. SOFT WRIST RESTRAINTS ON BOTH WRISTS.
--- NOTE | 2020-08-07 02:24 | NUR ---
PT RESTING WITH EYES CLOSED. RESPIRATIONS SHALLOW AND UNLABORED. CRACKLES HEARD ON AUSCULTATION. 0S SAT 96% ON 15L NON REBREATHER. VSS. BED IS LOW AND CALL LIGHT WITHIN REACH. SIDE RAILS UP X 3. WILL CONTINUE TO MONITOR.
[2020-08-07 04:45] LABS: BASOPHILS 0 % (0-2); EOSINOPHILS 0 % (0-7); HEMATOCRIT 30.7 % (42.0-54.0); HEMOGLOBIN 9.5 g/dL (13.5-17.5); IMMATURE GRANULOCYTES 0.3 % (0-5); LYMPHOCYTES 4.1 % (15-50); MCH 28.1 pg (26.0-34.0); MCHC 30.9 g/dL (31.0-37.0); MCV 90.8 fL (80.0-100.0); MEAN PLATELET VOLUME 10.1 fL (7.4-10.4); MONOCYTES 8.5 % (2-11); NEUTROPHILS 87.1 % (40-80); PLATELET COUNT 227 10x3/uL (130-400); RBC 3.38 10x6/uL (4.20-6.10); RDW 15.6 % (11.5-14.5); WBC 11.9 10x3/uL (4.8-10.8)
[2020-08-07 05:00] LABS: ALBUMIN 2.8 g/dL (3.4-5.0); BILIRUBIN - TOTAL 0.7 mg/dL (0.2-1.3); CREATININE - SERUM 1.5 mg/dL (0.6-1.3); MAGNESIUM - SERUM 2.2 mg/dL (1.8-2.4); PHOSPHOROUS 4.7 mg/dL (2.5-4.9); PROTEIN - SERUM 7.1 g/dL (6.4-8.2)
--- NOTE | 2020-08-07 08:29 | NUR ---
SPOKE WITH PT UPDATE PROVIDED.
--- NOTE | 2020-08-07 09:12 | NUR ---
DR. BAUER HERE ON TODAY MAKING ROUNDS AND WAS INFORMED THAT PT SHOULD BE ON BIPAP AT HS AND TO TRY HIM ON NC @ 4/5 LITER. WILL INFORM RT OF THIS.
--- NOTE | 2020-08-07 09:13 | NUR ---
DAUGHTER CALLED AT THIS TIME WAS UPDATED.
--- NOTE | 2020-08-07 09:15 | NUR ---
PT PLACED ON 6 L/M HIGH FLOW AT THIS TIME VIA N/C.
--- NOTE | 2020-08-07 17:30 | NUR ---
UPDATE FAMILY AT THIS TIME SPOKE WITH AVANI.
--- NOTE | 2020-08-07 18:40 | NUR ---
SPOKE WITH ANOTHER FAMILY MEMBER BY THE NAME OF DANISH AT THIS TIME AND UPDATE WAS GIVEN.
[2020-08-08] VITALS (15 sets, daily range): BP systolic 96–159; BP diastolic 60–89
--- NOTE | 2020-08-08 03:16 | NUR ---
PT REFUSED TO LET AM LABS BE DRAWN. SWINGING AND STRIKING AT [facility] THE WOOD BOATBUILDER.
[2020-08-08 03:21] LABS: BASOPHILS 0 % (0-2); EOSINOPHILS 0 % (0-7); HEMATOCRIT 30.1 % (42.0-54.0); HEMOGLOBIN 9.3 g/dL (13.5-17.5); IMMATURE GRANULOCYTES 0.3 % (0-5); LYMPHOCYTES 6.9 % (15-50); MCH 28.1 pg (26.0-34.0); MCHC 30.9 g/dL (31.0-37.0); MCV 90.9 fL (80.0-100.0); MEAN PLATELET VOLUME 9.6 fL (7.4-10.4); MONOCYTES 9.1 % (2-11); NEUTROPHILS 83.7 % (40-80); PLATELET COUNT 179 10x3/uL (130-400); RBC 3.31 10x6/uL (4.20-6.10); RDW 15.3 % (11.5-14.5)
[2020-08-08 03:43] LABS: ALBUMIN 2.6 g/dL (3.4-5.0); ANION GAP 8.1 mmol/L (8-16); BILIRUBIN - TOTAL 0.67 mg/dL (0.2-1.3); CALCIUM 9.2 mg/dL (8.5-10.1); CARBON DIOXIDE 34.6 mmol/L (21.0-32.0); CREATININE - SERUM 1.2 mg/dL (0.6-1.3); MAGNESIUM - SERUM 2.2 mg/dL (1.8-2.4); POTASSIUM - SERUM 3.7 mmol/L (3.5-5.1); PROTEIN - SERUM 6.6 g/dL (6.4-8.2)
[2020-08-08 03:49] LABS: PHOSPHOROUS 2.5 mg/dL (2.5-4.9)
--- NOTE | 2020-08-08 03:53 | NUR ---
CHG BATH GIVEN.
--- NOTE | 2020-08-08 09:32 | NUR ---
Up in chair at this time per Dr. Connelly's order.
--- NOTE | 2020-08-08 10:47 | NUR ---
Call received from July Alicia pt's daugther. Passcode verified. Update given.
--- NOTE | 2020-08-08 10:58 | NUR ---
Nutrition follow-up: Diet advanced per speech to regular solids with nectar thick liquids Pt would not eat this morning per RD; she will try again later Labs reviewed Pt now up in chair; pt was yelling at RDN Wt: 249# RDN following.
--- NOTE | 2020-08-08 12:04 | NUR ---
Dr. Alejo at bedside. Pt can go to floor from his standpoint if okay with pulmonology.
--- NOTE | 2020-08-08 15:11 | NUR ---
PT CONFUSED. PULLED OUT IV FROM RIGHT FOREARM.
--- NOTE | 2020-08-08 19:04 | NUR ---
PT WAS TRANSFERRED TO ROOM 2202. AWAKE AND ALERT SELF. RESP EVEN AND UNLABORED. INQUIRED ABOUT HIS WATCH, WALLET AND OTHER PERSONAL BELONGING FROM ICU. ICU NURSE WENT BACK TO FIND IT AND WAS UNABLE TO LOCATE. PT PLACE ON DONNA. C/L IN REACH AT BEDSIDE.
--- NOTE | 2020-08-08 23:00 | NUR ---
PT'S SPOKE WITH PT'S DAUGHTER. FAMILY WILLING TO STAY WITH PT IN SHIFTS HE GETS CONFUSED AND PULLS OUT IV'S, OXYGEN AND TRIES TO CLIMB OUT OF BED WITHOUT ASSISTANCE. SPOKE WITH LIFT SUPERVISOR MARIO, ABOUT NEED FOR FAMILY TO STAY WITH PT IN SHIFTS. MARIO STATED DEPENDING ON PT'S BEHAVIOR AND NEED FOR SITTER, EXCEPTIONS TO VISITOR RULE MIGHT BE MADE TO ACCOMMODATE FAMILY SWITCHING OUT TO SIT WITH PT IN SHIFTS. PASSED ON IN REPORT TO DAY NURSE. PT'S SON ARRIVED TO STAY WITH PT UNTIL MORNING.
[2020-08-09 01:13] VITALS: BP 154/69
[2020-08-09 06:14] VITALS: BP 139/65
[2020-08-09 06:29] LABS: BASOPHILS 0 % (0-2); EOSINOPHILS 1.3 % (0-7); HEMATOCRIT 30.5 % (42.0-54.0); HEMOGLOBIN 9.2 g/dL (13.5-17.5); IMMATURE GRANULOCYTES 0.3 % (0-5); LYMPHOCYTES 9.4 % (15-50); MCH 27.4 pg (26.0-34.0); MCHC 30.2 g/dL (31.0-37.0); MCV 90.8 fL (80.0-100.0); MEAN PLATELET VOLUME 10.2 fL (7.4-10.4); MONOCYTES 11.9 % (2-11); NEUTROPHILS 77.1 % (40-80); PLATELET COUNT 207 10x3/uL (130-400); RBC 3.36 10x6/uL (4.20-6.10); RDW 15.3 % (11.5-14.5); WBC 6.3 10x3/uL (4.8-10.8)
[2020-08-09 07:20] LABS: ALBUMIN 2.5 g/dL (3.4-5.0); ALKALINE PHOSPHATASE 315 U/L (30-120); ALT (SGPT) 10 U/L (10-68); CALC OSMOLALITY 291 mosm/kg (275-300); CALCIUM 9.1 mg/dL (8.5-10.1); CARBON DIOXIDE 31.2 mmol/L (21.0-32.0); CHLORIDE - SERUM 101 mmol/L (98-107); CREATININE - SERUM 0.9 mg/dL (0.6-1.3); GLUCOSE 139 mg/dL (74-106); MAGNESIUM - SERUM 2.2 mg/dL (1.8-2.4); PHOSPHOROUS 2.6 mg/dL (2.5-4.9); POTASSIUM - SERUM 3.2 mmol/L (3.5-5.1); PROTEIN - SERUM 6.5 g/dL (6.4-8.2); SODIUM 142 mmol/L (136-145); UREA NITROGEN 31 mg/dL (7-18); eGFR NON AFRICAN AMERICAN 85 mL/min (90-120)
[2020-08-09 09:50] VITALS: BP 132/59
--- NOTE | 2020-08-09 12:24 | NUR ---
PATIENT UP IN CHAIR. FAMILY AT SIDE. WAITING ON LUNCH. DENIES PAIN OR NEEDS. WILL CONTINUE TO MONITOR.
[2020-08-09 13:12] VITALS: BP 128/54
[2020-08-09 16:00] VITALS: BP 140/49
--- NOTE | 2020-08-09 17:37 | NUR ---
CALLED TO PATIENTS ROOM, PATIENT FOUND CHOKING ON FOOD. HYEMLIC MANEVOR PERFORMED, AIRWAY CLEARANCE ESTABLISHED. VITAL SIGNS TAKEN WITH 02 SAT OF 96% BLOOD PRESSURE OF 160/66. HEART RATE OF 68. NO CHANGE IN LUNG ASSESSMENT FROM THIS MORNING, CONTINUING DIMINISHED BREATH SOUNDS. OSMAN TRIPLETT CALLED AND REPORTED INCIDENT.
[2020-08-09 21:14] VITALS: BP 129/54
[2020-08-10 01:21] VITALS: BP 127/34
[2020-08-10 06:03] LABS: BASOPHILS 0.3 % (0-2); EOSINOPHILS 2.6 % (0-7); HEMATOCRIT 31.9 % (42.0-54.0); HEMOGLOBIN 9.8 g/dL (13.5-17.5); IMMATURE GRANULOCYTES 1.7 % (0-5); LYMPHOCYTES 20.1 % (15-50); MCH 27.5 pg (26.0-34.0); MCHC 30.7 g/dL (31.0-37.0); MCV 89.6 fL (80.0-100.0); MEAN PLATELET VOLUME 10.6 fL (7.4-10.4); MONOCYTES 14.1 % (2-11); NEUTROPHILS 61.2 % (40-80); PLATELET COUNT 223 10x3/uL (130-400); RBC 3.56 10x6/uL (4.20-6.10); RDW 15.2 % (11.5-14.5); WBC 5.7 10x3/uL (4.8-10.8)
[2020-08-10 06:17] VITALS: BP 134/77
[2020-08-10 06:22] LABS: ALBUMIN 2.7 g/dL (3.4-5.0); ALKALINE PHOSPHATASE 317 U/L (30-120); ALT (SGPT) 13 U/L (10-68); BILIRUBIN - TOTAL 1.01 mg/dL (0.2-1.3); CALC OSMOLALITY 283 mosm/kg (275-300); CALCIUM 8.9 mg/dL (8.5-10.1); CARBON DIOXIDE 31.7 mmol/L (21.0-32.0); CHLORIDE - SERUM 100 mmol/L (98-107); CREATININE - SERUM 0.9 mg/dL (0.6-1.3); GLUCOSE 150 mg/dL (74-106); POTASSIUM - SERUM 3.2 mmol/L (3.5-5.1); PROTEIN - SERUM 6.9 g/dL (6.4-8.2); SODIUM 139 mmol/L (136-145); UREA NITROGEN 21 mg/dL (7-18); eGFR NON AFRICAN AMERICAN 85 mL/min (90-120)
--- NOTE | 2020-08-10 07:55 | NUR ---
SITTING UP IN CHAIR AT THE BEDSIDE, DAUGHTER BY HIS SIDE. IV LOCATED TO LEFT FOREARM RUNNING NS @ 50ML. NO S/S OF DISTRESS AT THIS TIME, DENIES CURRENT NEEDS, WILL CONT TO MONITOR.
[2020-08-10 08:00] VITALS: BP 128/61
--- NOTE | 2020-08-10 13:40 | NUR ---
SPOKE WITH ABOUT NOT HAVING ANYONE AVALIABLE FOR SWALLOW STUDY THIS WEEKEND AND PT/PTS FAMILY BEING UPSET. TOLD ME TO FEED PT PUREE DIET AND INSTRUCT TO EAT SLOWLY. WILL CONT TO MONITOR.
[2020-08-10] MEDS ORDERED: OMNICEF300 MG PO (15:58)
[2020-08-10 16:26] VITALS: BP 138/59
[2020-08-10] MEDS ORDERED: ELIQUIS5 MG PO ×2 (17:00→17:03)
--- NOTE | 2020-08-10 20:36 | NUR ---
REMOVED LEFT FOREARM IV CATHETER INTACT. TELEMETRY BACK TO [facility]. TRANSPORTED PT BY WHEELCHAIR WITH OXYGEN TANK PROVIDED BY [facility] OFF FLOOR TO RIDE WAITING AT ER.
[2020-08-14 18:08] LABS: AEROBE ID Final report (())
== END 2020-08-10 20:38 | disposition home or self-care (01) | DRG 871 ==
LOC: D.ER 18:53 → D.EDHOLD 20:28 → D.ICU 20:28 → D.MS 08-08 17:54
PROVIDERS: Family Medicine; ADMIT Family Medicine; ATTEND Family Medicine
DX: A41.9 Sepsis, unspecified organism (principal); I26.99 Other pulmonary embolism without acute cor pulmonale; J18.9 Pneumonia, unspecified organism; J96.21 Acute and chronic respiratory failure with hypoxia; I50.33 Acute on chronic diastolic (congestive) heart failure; N17.9 Acute kidney failure, unspecified; I48.20 Chronic atrial fibrillation, unspecified; J90 Pleural effusion, not elsewhere classified; J44.1 Chronic obstructive pulmonary disease with (acute) exacerbation; E88.09 Other disorders of plasma-protein metabolism, not elsewhere classified; Z79.01 Long term (current) use of anticoagulants; K21.9 Gastro-esophageal reflux disease without esophagitis; I11.0 Hypertensive heart disease with heart failure; E11.65 Type 2 diabetes mellitus with hyperglycemia; Z79.84 Long term (current) use of oral hypoglycemic drugs; Z95.0 Presence of cardiac pacemaker; R41.0 Disorientation, unspecified

== ENCOUNTER 2020-08-15 11:09 | Inpatient (IN) | payer MEDICARE ==
[2020-08-15] VITALS (7 sets, daily range): BP systolic 114–142; BP diastolic 55–83; BMI 29.2
[~2020-08-15] VITALS: Ht 185.4 cm; Wt 100.2 kg
[~2020-08-15 11:09] MED LIST changes: +ACCUPRIL10 MG PO; +ELIQUIS5 MG PO; +KLOR-CON M2020 MEQ PO; +OMNICEF300 MG PO; +VITAMIN D3 PO
[2020-08-15 11:48] LABS: BASOPHILS 0.1 % (0-2); EOSINOPHILS 0.1 % (0-7); HEMATOCRIT 27.6 % (42.0-54.0); HEMOGLOBIN 8.7 g/dL (13.5-17.5); IMMATURE GRANULOCYTES 1.6 % (0-5); LYMPHOCYTES 10.2 % (15-50); MCH 28.1 pg (26.0-34.0); MCHC 31.5 g/dL (31.0-37.0); MEAN PLATELET VOLUME 10.2 fL (7.4-10.4); MONOCYTES 12.5 % (2-11); NEUTROPHILS 75.5 % (40-80); PLATELET COUNT 173 10x3/uL (130-400); RDW 16.2 % (11.5-14.5); WBC 8.1 10x3/uL (4.8-10.8)
[2020-08-15 11:56] LABS: CALC OSMOLALITY 271 mosm/kg (275-300); CALCIUM 8.9 mg/dL (8.5-10.1); CARBON DIOXIDE 28.2 mmol/L (21.0-32.0); CHLORIDE - SERUM 97 mmol/L (98-107); CREATININE - SERUM 1.4 mg/dL (0.6-1.3); GLUCOSE 149 mg/dL (74-106); POTASSIUM - SERUM 4.2 mmol/L (3.5-5.1); SODIUM 132 mmol/L (136-145); UREA NITROGEN 24 mg/dL (7-18); eGFR NON AFRICAN AMERICAN 51 mL/min (90-120)
[2020-08-15 11:57] LABS: INR 1.42 (0.85-1.17); PROTIME 17.2 SECONDS (11.6-15.0)
[2020-08-15 11:58] LABS: APTT 41.4 SECONDS (22.8-39.4)
[2020-08-15 12:17] LABS: ALBUMIN 2.9 g/dL (3.4-5.0); ALKALINE PHOSPHATASE 423 U/L (30-120); ALT (SGPT) 24 U/L (10-68); BILIRUBIN - TOTAL 1.06 mg/dL (0.2-1.3); CKMB 1.2 U/L (0.0-3.6); CREATINE KINASE 112 UL (21-232); PRO BNP 3564 pg/mL (0-450); PROTEIN - SERUM 6.9 g/dL (6.4-8.2)
[2020-08-15 12:21] LABS: TROPONIN-I 0.062 ng/mL (0.000-0.060)
--- NOTE | 2020-08-15 12:22 | NUR ---
ERP INFORMED OF CRITICAL LAB TROPONIN OF 0.062.
--- NOTE | 2020-08-15 16:45 | NUR ---
INCONT OF STOOL. CONFUSED AND PULLED PIV OUT. BED CLEANED. PLACED IN CLEAN GOWN. PUT BACK TO BED WITH FRESH LINEN AND BLANKET. PIV CATH INTACT.
--- NOTE | 2020-08-15 19:00 | NUR ---
REPORT TO JULY KATHLEEN
--- NOTE | 2020-08-16 00:03 | NUR ---
RECIEVED REPORT FROM RN IN ER. ARRIVED TO FLOOR ON STRETCHER. TRANSFERED TO BED BY 4 STAFF. ALERT AND ORIENTED. REMAINS BEDFAST FSBS CHECKED AND INSULIN GIVEN PER ORDERS. PITTING EDEMA TO LOWER EXTREMITIES. SON STATES HE DRINKS A LOT OF WATER EVERY DAY. DENIES ANY NEEDS AT THIS TIME. ASSESSMENT COMPLETED.
[2020-08-16 05:33] VITALS: BP 101/70
[2020-08-16 07:00] VITALS: BP 97/41
[2020-08-16 07:18] LABS: BASOPHILS 0.1 % (0-2); EOSINOPHILS 0.3 % (0-7); HEMATOCRIT 27.3 % (42.0-54.0); HEMOGLOBIN 8.5 g/dL (13.5-17.5); IMMATURE GRANULOCYTES 0.7 % (0-5); LYMPHOCYTES 11.6 % (15-50); MCHC 31.1 g/dL (31.0-37.0); MCV 89.8 fL (80.0-100.0); MEAN PLATELET VOLUME 10.2 fL (7.4-10.4); MONOCYTES 14.3 % (2-11); PLATELET COUNT 190 10x3/uL (130-400); RBC 3.04 10x6/uL (4.20-6.10); RDW 16.3 % (11.5-14.5); WBC 7.3 10x3/uL (4.8-10.8)
[2020-08-16 07:35] LABS: ALBUMIN 2.8 g/dL (3.4-5.0); ANION GAP 8.5 mmol/L (8-16); BILIRUBIN - TOTAL 1.04 mg/dL (0.2-1.3); CALCIUM 8.7 mg/dL (8.5-10.1); CARBON DIOXIDE 32.1 mmol/L (21.0-32.0); CREATININE - SERUM 1.3 mg/dL (0.6-1.3); POTASSIUM - SERUM 3.6 mmol/L (3.5-5.1); PROTEIN - SERUM 6.9 g/dL (6.4-8.2); TROPONIN-I 0.074 ng/mL (0.000-0.060)
[2020-08-16] MEDS ORDERED: DOXYCYCLINE HY100 M2 PO (09:49)
--- NOTE | 2020-08-16 11:19 | NUR ---
SPOKEW WITH DR. BARKLEY, HE IS NOT PLANNING ON TAKING PT TO LOAN PROCESSOR, SO PT CAN HAVE DIET ORDER.
--- NOTE | 2020-08-16 11:23 | NUR ---
FS OF 126, NO COVERAGE NEEDED PER S/S. PT RESTING COMFORTABLY IN THE CHAIR, DENIES ANY NEEDS AT THIS TIME. SON AT BEDSIDE, CALL LIGHT IN REACH.
[2020-08-16 13:14] VITALS: Ht 185.4 cm; Wt 100.2 kg
[2020-08-16 15:00] VITALS: BP 168/60
--- NOTE | 2020-08-16 16:09 | NUR ---
NOTIFIED DAISY DIAMOND APRN, ABOUT PT'S COUGHING UP BRIGHT RED BLOOD AND SHAKING A LOT, AND THAT DAUGHTER'S CONCERN THAT SOMETHING ELSE IS WRONG WITH HIM. NO NEW ORDERS AT THIS TIME.
--- NOTE | 2020-08-16 17:12 | NUR ---
PT VERY CONFUSED NOW AND VERY SOB ON 3L, SAT READING 97% ON THE 3L. ENCOURAGED PT TO TAKE IN DEEP BREATHS AND BREATH IN HIS NOSE AND OUT HIS MOUTH. PT A LITTLE OF A MOUTH BREATHER. PER PT'S DAUGHTER PT HAS NEVER BEEN THIS CONFUSED, KEEPS PULLING AT EVERTHING. REORIENTED PT SEVERAL TIMES WHILE IN THE ROOM. WILL CONTIUE TO MONITOR, CALL LIGHT IN REACH, DAUGHTER AT BEDSIDE.
--- NOTE | 2020-08-16 19:59 | NUR ---
RECIEVED UP IN BED WITH EYES OPEN AND TV ON. A/A/O X3. UP AD FRANCOIS. DAUGHTER AT BEDSIDE. REPORTED SHE WILL STAY TIL TUESDAY. O2@ 2 LITERS PER N/C. IV TO LT AC SL. DENIES ANY NEEDS AT THIS TIME.
[2020-08-16 20:50] VITALS: BP 107/46
[2020-08-17 00:50] VITALS: BP 108/53
--- NOTE | 2020-08-17 02:21 | NUR ---
RESTING IN BEED WITH EYES CLOED AND HOME BIPAP IN PLACE. DAUGHTER AT BEDSIDE. NO S/S OF DISTRESS OBSERVED. WILL CONT. POC.
[2020-08-17 04:36] VITALS: BP 154/59
[2020-08-17 05:36] LABS: BASOPHILS 0 % (0-2); EOSINOPHILS 0 % (0-7); HEMATOCRIT 26.1 % (42.0-54.0); HEMOGLOBIN 8.1 g/dL (13.5-17.5); IMMATURE GRANULOCYTES 0.9 % (0-5); LYMPHOCYTES 11.6 % (15-50); MCH 27.6 pg (26.0-34.0); MCV 88.8 fL (80.0-100.0); MEAN PLATELET VOLUME 9.7 fL (7.4-10.4); MONOCYTES 14.5 % (2-11); PLATELET COUNT 170 10x3/uL (130-400); RBC 2.94 10x6/uL (4.20-6.10); RDW 16.3 % (11.5-14.5)
[2020-08-17 05:44] LABS: WBC 4.6 10x3/uL (4.8-10.8)
[2020-08-17 06:02] LABS: ALBUMIN 2.6 g/dL (3.4-5.0); ANION GAP 6.8 mmol/L (8-16); BILIRUBIN - TOTAL 0.94 mg/dL (0.2-1.3); CALCIUM 8.3 mg/dL (8.5-10.1); CARBON DIOXIDE 31.9 mmol/L (21.0-32.0); CREATININE - SERUM 1.4 mg/dL (0.6-1.3); POTASSIUM - SERUM 3.7 mmol/L (3.5-5.1); PROTEIN - SERUM 6.4 g/dL (6.4-8.2)
--- NOTE | 2020-08-17 07:00 | NUR ---
RECEIVED REPORT. ASSUMED CARE OF PATIENT. CALL LIGHT WITHIN REACH. PATIENT DAUGHTER AT BEDSIDE. BEDSIDE SHIFT REPORT COMPLETE, WHITE BOARD UPDATED. DENIES NEEDS. NO DISTRESS.
[2020-08-17 07:46] VITALS: BP 134/67
--- NOTE | 2020-08-17 11:40 | NUR ---
LAB REPORTS PATIENT POSITIVE FOR COVID 19. CARPENTER'S HELPER ON UNIT AND SPOKE WITH FAMILY, FAMILY LEAVING AT THIS TIME. PATIENT TO BE MOVED TO ROOM 2129 AND PLACED IMMEDIATELY IN DROPLET ISOLATION.
[2020-08-17 11:51] VITALS: BP 91/49
--- NOTE | 2020-08-17 12:00 | NUR ---
GLUCOSE 102. NO INSULIN PER SLIDING SCALE.
--- NOTE | 2020-08-17 14:27 | NUR ---
covid 19 ordered to confirm if patient is positive.
--- NOTE | 2020-08-17 17:10 | NUR ---
FSBS 110. NO INSULIN PER SLIDING SCALE.
[2020-08-17 19:41] VITALS: BP 124/49
[2020-08-18] VITALS (7 sets, daily range): BP systolic 100–138; BP diastolic 48–76
[2020-08-18 06:59] LABS: BASOPHILS 0 % (0-2); EOSINOPHILS 0.3 % (0-7); HEMATOCRIT 23.6 % (42.0-54.0); IMMATURE GRANULOCYTES 0.5 % (0-5); LYMPHOCYTES 21.2 % (15-50); MCH 27.9 pg (26.0-34.0); MCHC 31.4 g/dL (31.0-37.0); MCV 89.1 fL (80.0-100.0); MEAN PLATELET VOLUME 9.8 fL (7.4-10.4); MONOCYTES 15.5 % (2-11); NEUTROPHILS 62.5 % (40-80); PLATELET COUNT 160 10x3/uL (130-400); RBC 2.65 10x6/uL (4.20-6.10); RDW 16.2 % (11.5-14.5); WBC 3.7 10x3/uL (4.8-10.8)
[2020-08-18 07:06] LABS: HEMOGLOBIN 7.4 g/dL (13.5-17.5)
[2020-08-18 07:13] LABS: ALBUMIN 2.3 g/dL (3.4-5.0); ANION GAP 8.6 mmol/L (8-16); BILIRUBIN - TOTAL 0.89 mg/dL (0.2-1.3); CALCIUM 8.3 mg/dL (8.5-10.1); CARBON DIOXIDE 29.3 mmol/L (21.0-32.0); CREATININE - SERUM 1.2 mg/dL (0.6-1.3); POTASSIUM - SERUM 3.9 mmol/L (3.5-5.1); PROTEIN - SERUM 5.9 g/dL (6.4-8.2)
--- NOTE | 2020-08-18 11:36 | NUR ---
PT CONFUSED TO SITUATION. OVER THE PHONE CONSENT GIVEN BY PT'S DAUGHTER AVANI FOR BLOOD CONSENT.
--- NOTE | 2020-08-18 11:40 | NUR ---
PT HAS IV ABX INFUSING AT THIS TIME. CALLED BLOOD BANK AND STATED I WILL GET BLOOD WHEN ABX ARE DONE INFUSING AND THEY VERBALIZED UNDERSTANDING.
--- NOTE | 2020-08-18 12:45 | NUR ---
PT HAD A NOSE BLEED. FLATLOCK SEWING MACHINE OPERATOR REPORTED TO R.T. AND R.T. SPOKE WITH DR. BAUER. NO NEW ORDERS RECEVIED.
--- NOTE | 2020-08-18 13:32 | NUR ---
PT HAS NOSE BLLED POSSIBLY FROM HFNC @ 9L. OFFERED TO SWITCH PT TO A NBR OR A VENTI MASK. PT REFUSED AT THE TIME , SAID HE WANTED TO EAT FIRST
--- NOTE | 2020-08-18 14:50 | NUR ---
merrem and vacncomycin still infusing in left ac iv. started 20g iv in right fa. will get blood from blood bank.
--- NOTE | 2020-08-18 15:03 | NUR ---
1 UNIT OF PRBC STARTED USING RIGHT FA 20G IV AT 75ML/HR. NAKUL MCDOWELL SPIKED BLOOD BAG. EXPLAINED S/S TO REPORT OF PRBC REACTION AND PT VERBALIZED UNDERSTANDING. VS STBALE. WILL STAY WITH PT FOR FIRST 15 MIN.
--- NOTE | 2020-08-18 15:10 | NUR ---
PT HAS NO S/S OF PRBC REACTION. INCREASED PRBC TO 100ML/HR. WILL CONTINUE TO STAY WITH PT UNTIL 1518.
--- NOTE | 2020-08-18 15:20 | NUR ---
PT SHOWS NO S/S OF PRBC REACTION.INCREASED PRBC TO 125ML/HR VIA RIGHT FA IV. WILL CONTINUE TO MONITOR.
--- NOTE | 2020-08-18 15:32 | NUR ---
I have reviewed this patient and I concur with the Shift Assessment completed by the Licensed Practical Nurse today this shift.
--- NOTE | 2020-08-18 16:00 | NUR ---
WHILE CHECKING ON PT. PT'S LEFT NOSTRIL WAS DRIPPING BLOOD. PULLED SMALL BLOOD CLOT OUT OF LEFT NARE AND NOSE HAS NOT BLED SINCE. O2 AT 4L HIGH FLOW NC.
--- NOTE | 2020-08-18 17:20 | NUR ---
PRBC INFUSION COMPLETE. VS STABLE. PT SHOWS NO S/S OF PRBC REACTION.
--- NOTE | 2020-08-18 17:40 | NUR ---
CALLED AND SPOKE WITH GAUTAM FROM PHARMACY ABOUT REMDESIVIR AND SHE STATES SHE WILL BRING IT UP SHORTLY. I VERBALIZED UNDERSTANDING.
--- NOTE | 2020-08-18 17:45 | NUR ---
NOTIFIED CONCETTA CARSON OF HGB 7.9. RECEIVED NO NEW ORDERS.
--- NOTE | 2020-08-18 19:33 | NUR ---
REPORT RECIEVED AND ROUNDING COMPLETE. PATIENT LAYING IN BED IN LOW FOWLERS, NO DISTRESS NOTED AT THIS TIME. PATIENT PLEASANTLY CONFUSED ON TIME AND SITUATION. PATIENT STATES HE DOESNT KNOW IF HE NEEDS ANYTHING AND IF HE DID HE WOULDNT KNOW WHAT IT WAS. RIGHT FOREARM PIV THAT IS PATENT AND RUNNING FLUIDS AT THIS TIME, ALSO RIGHT FOREARM PIV THAT IS SALINE LOCKED. WEARING NASAL CANNNULA HIGH FLOW WITH O2 AT 5L. CALL LIGHT WITHIN REACH AND BED IN LOWEST LOCKED POSITION.
[2020-08-19] VITALS (8 sets, daily range): BP systolic 106–139; BP diastolic 54–74
[2020-08-19 06:36] LABS: BASOPHILS 0 % (0-2); EOSINOPHILS 0 % (0-7); HEMOGLOBIN 8.7 g/dL (13.5-17.5); IMMATURE GRANULOCYTES 1.2 % (0-5); MCH 28.2 pg (26.0-34.0); MCHC 32.2 g/dL (31.0-37.0); MCV 87.7 fL (80.0-100.0); MEAN PLATELET VOLUME 9.9 fL (7.4-10.4); MONOCYTES 14.3 % (2-11); NEUTROPHILS 66.5 % (40-80); PLATELET COUNT 167 10x3/uL (130-400); RBC 3.08 10x6/uL (4.20-6.10); RDW 15.5 % (11.5-14.5)
[2020-08-19 06:57] LABS: WBC 2.5 10x3/uL (4.8-10.8)
[2020-08-19 07:11] LABS: ALBUMIN 2.2 g/dL (3.4-5.0); ANION GAP 11.1 mmol/L (8-16); BILIRUBIN - TOTAL 0.79 mg/dL (0.2-1.3); CALCIUM 8.2 mg/dL (8.5-10.1); CARBON DIOXIDE 27.9 mmol/L (21.0-32.0); CREATININE - SERUM 1.2 mg/dL (0.6-1.3); VANCOMYCIN - RANDOM 11.8 ug/mL (10.0-20.0)
--- NOTE | 2020-08-19 10:32 | NUR ---
I have reviewed this patient and I concur with the Shift Assessment completed by the Licensed Practical Nurse today this shift.
--- NOTE | 2020-08-19 14:00 | NUR ---
GENEVIEVE RN SPIKED FFP BAG AND ADMINSTERED FFP AT 100ML/HR VIA RIGHT FA 20G IV. VS STABLE. THIS NURSE WILL STAY WITH PT FOR FIRST 15 MIN.
--- NOTE | 2020-08-19 14:17 | NUR ---
NO REACTION NOTED. VS STABLE. INCREASED TO 125ML/HR. WILL CONTINUE TO MONITOR.
--- NOTE | 2020-08-19 14:29 | NUR ---
Nutrition Follow-up: Pt in droplet isolation; covid-19+. Chart reviewed. Diet: Cardiac PO intake: 65% avg x 5 meals Wt: 221# (08/16) Labs noted: Na 131, Glu 156, Ca 8.2, Alb 2.2 Meds noted: zinc sulfate, vitamin D, vitamin C, Florajen, KDur, Protonix, Humalog -Change to cardiac carb consistent diet. -Encourage PO intake and honor food preferences within diet restrictions. -Monitor wt. -RD following.
--- NOTE | 2020-08-19 16:02 | NUR ---
FFP INFUSON COMPLETE. NO REACTION S/S NOTED. COMPLETE LINEN CHANGE DONE. BED LOW. CL IN REACH. DONNA ALARM ON. PT STATES HE HAS NO FURTHER NEEDS AT THIS TIME.
--- NOTE | 2020-08-19 18:07 | NUR ---
ASSISTED PT WITH URINAL AND CHANGED DISPOSABLE PAD ON BED AND ASSISTED PT BACK INTO BED. GOT PT ANOTHER BLANKET. O2 AT 4L HIGH FLOW NC. PT LAYING IN BED. BED LOW. CL IN REACH.
--- NOTE | 2020-08-19 18:57 | MORECARE ---
CASE MANAGEMENT DISCHARGE SUMMARY PATIENT: HARRY GOLDSMITH UNIT: [id number] ADM DATE: 08/15/20 AGE: 85 : 37 SEX: M ROOM/BED: D.9879 AUTHOR: KIRSTEN GARCIA PHYSICIAN: REFERRING PHYSICIAN: MARIELA WILKES MD DATE OF SERVICE: 08/19/20 Discharge Plan Patient Name: HARRY GOLDSMITH [facility] [facility] 1935 Planned Disposition: Anticipated Discharge Date: Discharge Date: Expected LOS: Initial Reviewer: [email or web address] Initial Review Date: 08/15/2020 Generated: 08/19/20 7:56 pm Patient Name: HARRY GOLDSMITH Page 59190 at 1857 All edits/amendments must be made on the electronic document DICTATION DATE: 08/19/201855 GAS PLANT DISPATCHER: CORNEL 08/19/201855 RPT#: [id number] DC DATE: STATUS: ADM IN [facility] [address] [place] [address] END OF REPORT
--- NOTE | 2020-08-19 19:03 | MORECARE ---
CASE MANAGEMENT DISCHARGE SUMMARY PATIENT: HARRY GOLDSMITH UNIT: [id number] ADM DATE: 08/15/20 AGE: 85 : 37 SEX: M ROOM/BED: D.5579 AUTHOR: KIRSTEN GARCIA PHYSICIAN: REFERRING PHYSICIAN: MARIELA WILKES MD DATE OF SERVICE: 08/19/20 Discharge Plan Patient Name: HARRY GOLDSMITH [facility] [facility] 1935 Planned Disposition: Anticipated Discharge Date: Discharge Date: Expected LOS: Initial Reviewer: [email or web address] Initial Review Date: 08/15/2020 Generated: 08/19/20 8:03 pm DCPIA - Discharge Planning Initial Assessment Updated by [email or web address]: Claudette Olguin on 08/19/20 6:57 pm * Is the patient Alert and Oriented? No * How many steps to enter\exit or inside your home? ramp * PCP jena * Pharmacy [facility] or mail order pharmacy * Preadmission Environment Home Alone * ADLs Independent * Equipment Cane Oxygen * List name and contact numbers for known caregivers / representatives who currently or will assist patient after discharge: July [phone] * Verbal permission to speak to the caregivers and representatives has been obtained from the patient. Yes * Community resources currently utilized Home Health * Please name any agencies selected above. [facility] * Additional services required to return to the preadmission environment? Yes * Can the patient safely return to the preadmission environment? No * Has this patient been hospitalized within the prior 30 days at any hospital? Yes Last DP export: 08/19/20 5:57 p Patient Name: HARRY GOLDSMITH Page 74992 at 1903 All edits/amendments must be made on the electronic document DICTATION DATE: 08/19/201902 OVER THE ROAD DRIVER: CORNEL 08/19/201902 RPT#: [id number] DC DATE: STATUS: ADM IN [facility] [address] [place] [address] END OF REPORT
--- NOTE | 2020-08-19 19:10 | MORECARE ---
CASE MANAGEMENT DISCHARGE SUMMARY PATIENT: HARRY GOLDSMITH UNIT: [id number] ADM DATE: 08/15/20 AGE: 85 : 37 SEX: M ROOM/BED: D.0360 AUTHOR: KIRSTEN GARCIA PHYSICIAN: REFERRING PHYSICIAN: MARIELA WILKES MD DATE OF SERVICE: 08/19/20 Discharge Plan Patient Name: HARRY GOLDSMITH Facility: [facility]:[place] : 1935 Planned Disposition: Anticipated Discharge Date: Discharge Date: Expected LOS: Initial Reviewer: [email or web address] Initial Review Date: 08/15/2020 Generated: 08/19/20 8:09 pm DCP- Discharge Planning Updated by [email or web address]: Claudette Olguin on 08/19/20 6:[address] Patient Name: HARRY GOLDSMITH Admission Status: ER Accout number: [id number] Admission Date: 08-15-2020 : 1935 Admission Diagnosis:FEVER, UNSPECIFIED Attending: MARIELA WILKES Current LOS: 4 Anticipated DC Date: Planned Disposition: Primary Insurance: MEDICARE A & B Discharge Planning Comments: CM called pt room, but patient was confused so CM called July (dtr) at [phone] to complete initial dc planning assessment. CM educated patient on the CM role and verbal consent given by July to complete assessment. CM verified patient's address, phone number, and emergency contact phone numbers. Patient lives alone, but his other daughter Erik and his grand son stay with him sometimes. The patient has [facility] and has 02 concentrator and a portable oxygen tank with [facility]. Mr Goldsmith is on 3 liters oxygen at home. At discharge July would like the patient to return home and be independent. BERNICE verbalized to resume [facility] and [facility]. CM educated July about increased weakness associated with Covid, and feels it is unsafe for the patient to return home alone while being this weak, and confused. KRISTINA suggests rehab. July states she knows he needs rehab and requests he go to [facility] rehab. KRISTINA stated rehab is not accepting covid positive patients at this time. Stated the next rehab would be at a SNF. July states she does not want her father to be in a home, but will consider it if his condition worsens. CM will reach out to July if Mr Goldsmith becomes weaker and it becomes unsafe to be alone at discharge. CM will continue to follow and will assist as needed with dc plans/needs. Chemical Maker: Claudette Olguin DCPIA - Discharge Planning Initial Assessment Updated by [email or web address]: Claudette Olguin on 08/19/20 6:57 pm * Is the patient Alert and Oriented? No * How many steps to enter\exit or inside your home? ramp * PCP jena * [facility] * Preadmission Environment Home Alone * ADLs Independent * Equipment Cane Oxygen * List name and contact numbers for known caregivers / representatives who currently or will assist patient after discharge: July [phone] * Verbal permission to speak to the caregivers and representatives has been obtained from the patient. Yes * Community resources currently utilized Home Health * Please name any agencies selected above. [facility] * Additional services required to return to the preadmission environment? Yes * Can the patient safely return to the preadmission environment? No * Has this patient been hospitalized within the prior 30 days at any hospital? Yes Coverage Notice Reviewer: [id number] - Claudette Olguin Notice Issued Date-Time: 08/19/2020 14:00 Notice Type: Patient Choice Letter Notice Delivered To: Family Member Relationship to Patient: Daughter Converting Operator Name: July Delivery Method: - Cleopatra Days: Prior Verbal Notification: Recipient Understood Notice: Recipient Signature: Med Rec Note Co-signed by Attending: Coverage Notice Comment: Last DP export: 08/19/20 6:03 p Patient Name: HARRY GOLDSMITH Page [id number] at 1910 All edits/amendments must be made on the electronic document DICTATION DATE: 08/19/201908 GREASE AND TALLOW PUMPER: CORNEL 08/19/201908 RPT#: [id number] DC DATE: STATUS: ADM IN [facility] [address] [place] [address] END OF REPORT
--- NOTE | 2020-08-19 19:35 | NUR ---
REPORT RECIEVED AND ROUNDING COMPLETE. PATIENT LAYING IN BED IN SUPINE POSITION, NO DISTRESS NOTED, [place], ALERT AND CONFUSED, WEARING NASAL CANNULA (HIGH FLOW) WITH O2 AT 3L. LEFT AC PIV THAT IS SALINE LOCKED, RIGHT FOREARM PIV PATENT AND RUNNING FLUIDS AT THIS TIME. CALL LIGHT WIHTIN REACH AND BED IN LOWEST LOCKED POSITION WIHT DONNA ALARM ATTACHED AND WORKING.
[2020-08-20] VITALS: BP 124/66
[2020-08-20 04:00] VITALS: BP 127/70
[2020-08-20 06:32] LABS: ALBUMIN 2.4 g/dL (3.4-5.0); ANION GAP 10.2 mmol/L (8-16); BILIRUBIN - TOTAL 0.75 mg/dL (0.2-1.3); CALCIUM 8.5 mg/dL (8.5-10.1); CARBON DIOXIDE 28.3 mmol/L (21.0-32.0); CREATININE - SERUM 1.1 mg/dL (0.6-1.3); POTASSIUM - SERUM 4.5 mmol/L (3.5-5.1); PROTEIN - SERUM 5.9 g/dL (6.4-8.2)
--- NOTE | 2020-08-20 07:15 | NUR ---
RECEIVE SHIFT REPORT. RESTING IN BED WITH EYES CLOSED. NO SIGNS OF DISTRESS. WILL CONTINUE PLAN OF CARE AND SAFETY PRECAUTIONS.
--- NOTE | 2020-08-20 07:16 | NUR ---
RECEIVE SHIFT REPORT. SITTING UP ON EDGE OF BED. RT AT BEDSIDE. MONITOR PLACED ON NURSE DESK. WILL CONTINUE PLAN OF CARE AND SAFETY PRECAUTIONS.
[2020-08-20 08:09] VITALS: BP 127/72
[2020-08-20 08:37] LABS: BASOPHILS 0 % (0-2); EOSINOPHILS 0 % (0-7); HEMATOCRIT 29.7 % (42.0-54.0); HEMOGLOBIN 9.7 g/dL (13.5-17.5); IMMATURE GRANULOCYTES 0.5 % (0-5); LYMPHOCYTES 11.2 % (15-50); MCH 28.3 pg (26.0-34.0); MCHC 32.7 g/dL (31.0-37.0); MCV 86.6 fL (80.0-100.0); MEAN PLATELET VOLUME 9.4 fL (7.4-10.4); MONOCYTES 7.6 % (2-11); NEUTROPHILS 80.7 % (40-80); PLATELET COUNT 167 10x3/uL (130-400); RBC 3.43 10x6/uL (4.20-6.10); RDW 15.5 % (11.5-14.5)
[2020-08-20 08:44] LABS: WBC 4.2 10x3/uL (4.8-10.8)
[2020-08-20 11:21] VITALS: BP 102/69
--- NOTE | 2020-08-20 19:45 | NUR ---
REPORT RECIEVED AND ROUNDING COMPLETE. PATIENT LAYING IN BED, EYES CLOSED BREATHING EVEN AND UNLABORED. WEARNING NASAL CANNULA WITH O2 AT 3L. LEFT AC PIV THAT IS SALINE LOCKED, RIGHT FOREARM PIV THAT IS PATENT AND RUNNING ABX. PATIENT EASILY AROUSED TO NURSE TALKING, STATES HE IS JUST TIRED. NO DISTRESS NOTED AT THIS TIME. CALL LIGHT WITHIN REACH AND BED IN LOWEST LOCKED POSITION. DONNA ALARM CONNECTED AND WORKING.
[2020-08-20 20:00] VITALS: BP 120/72
[2020-08-21] VITALS: BP 123/70
[2020-08-21 04:00] VITALS: BP 153/75
[2020-08-21 06:58] VITALS: BP 123/84
[2020-08-21 07:09] LABS: BASOPHILS 0 % (0-2); EOSINOPHILS 0 % (0-7); HEMATOCRIT 30.2 % (42.0-54.0); HEMOGLOBIN 9.6 g/dL (13.5-17.5); IMMATURE GRANULOCYTES 0.5 % (0-5); LYMPHOCYTES 10.3 % (15-50); MCH 27.7 pg (26.0-34.0); MCHC 31.8 g/dL (31.0-37.0); MCV 87.3 fL (80.0-100.0); MEAN PLATELET VOLUME 9.8 fL (7.4-10.4); MONOCYTES 6.9 % (2-11); NEUTROPHILS 82.3 % (40-80); PLATELET COUNT 195 10x3/uL (130-400); RBC 3.46 10x6/uL (4.20-6.10); RDW 15.7 % (11.5-14.5)
--- NOTE | 2020-08-21 07:15 | NUR ---
RECEIVE SHIFT REPORT. RESTING IN BED WITH EYES CLOSED. NO SIGNS OF DISTRESS. 3L NC. WILL CONTINUE PLAN OF CARE AND SAFETY PRECAUTIONS. MONITOR PLACED ON NURSES DESK.
[2020-08-21 07:24] LABS: WBC 5.5 10x3/uL (4.8-10.8)
[2020-08-21 07:40] LABS: ALBUMIN 2.6 g/dL (3.4-5.0); ANION GAP 9.8 mmol/L (8-16); BILIRUBIN - TOTAL 0.8 mg/dL (0.2-1.3); CALCIUM 8.6 mg/dL (8.5-10.1); CARBON DIOXIDE 28.4 mmol/L (21.0-32.0); CREATININE - SERUM 1.3 mg/dL (0.6-1.3); POTASSIUM - SERUM 4.2 mmol/L (3.5-5.1); PROTEIN - SERUM 6.6 g/dL (6.4-8.2); VANCOMYCIN - RANDOM 15.7 ug/mL (10.0-20.0)
[2020-08-21 10:37] VITALS: BP 121/70
--- NOTE | 2020-08-21 13:35 | NUR ---
Nutrition Follow-up: Pt in droplet isolation; covid-19+. Chart reviewed. Diet: Cardiac Carb Consistent PO intake: 55% avg x 10 meals Wt: 221# (08/16) Labs noted: Na 132, Glu 171, Alb 2.6 Meds noted: zinc sulfate, vitamin D, vitamin C, Florajen, Glucotrol, KDur, Protonix, Humalog -Encourage PO intake and honor food preferences within diet restrictions. -Offer Glucerna with meals. -Monitor wt; noted daily wts ordered. -RD following.
[2020-08-21 15:20] VITALS: BP 120/60
[2020-08-21 22:26] VITALS: BP 141/72
[2020-08-22 05:32] LABS: BASOPHILS 0 % (0-2); EOSINOPHILS 0 % (0-7); HEMATOCRIT 26.6 % (42.0-54.0); HEMOGLOBIN 8.4 g/dL (13.5-17.5); IMMATURE GRANULOCYTES 0.4 % (0-5); LYMPHOCYTES 10.4 % (15-50); MCH 27.5 pg (26.0-34.0); MCHC 31.6 g/dL (31.0-37.0); MCV 87.2 fL (80.0-100.0); MEAN PLATELET VOLUME 9.8 fL (7.4-10.4); MONOCYTES 8.1 % (2-11); NEUTROPHILS 81.1 % (40-80); PLATELET COUNT 194 10x3/uL (130-400); RBC 3.05 10x6/uL (4.20-6.10); RDW 15.9 % (11.5-14.5); WBC 5.1 10x3/uL (4.8-10.8)
[2020-08-22 05:49] LABS: ALBUMIN 2.3 g/dL (3.4-5.0); ANION GAP 7.7 mmol/L (8-16); BILIRUBIN - TOTAL 0.73 mg/dL (0.2-1.3); CALCIUM 8.1 mg/dL (8.5-10.1); CARBON DIOXIDE 29.4 mmol/L (21.0-32.0); CREATININE - SERUM 1.1 mg/dL (0.6-1.3); POTASSIUM - SERUM 4.1 mmol/L (3.5-5.1); PROTEIN - SERUM 5.6 g/dL (6.4-8.2)
[2020-08-22 06:15] VITALS: BP 118/70
--- NOTE | 2020-08-22 07:15 | NUR ---
RECEIVE SHIFT REPORT. RESTING IN BED WITH EYES CLOSED. NO SIGNS OF DISTRESS. VIDEO MONITOR PLACED ON NURSES DESK. WILL CONTINUE PLAN OF CARE AND SAFETY PRECAUTIONS.
[2020-08-22 08:28] VITALS: BP 160/78
[2020-08-22 12:07] VITALS: BP 102/69
[2020-08-22 15:44] VITALS: BP 144/69
[2020-08-22 19:00] VITALS: BP 110/68
--- NOTE | 2020-08-22 22:21 | NUR ---
SPOKE WITH DAUGHTER, PASSCODE GIVEN. UPDATE PROVIDED, QUESTIONS ANSWERED.
[2020-08-23] VITALS: BP 109/62
[2020-08-23 08:10] VITALS: BP 142/73
[2020-08-23 08:21] LABS: BASOPHILS 0 % (0-2); EOSINOPHILS 0 % (0-7); HEMATOCRIT 27.2 % (42.0-54.0); HEMOGLOBIN 8.8 g/dL (13.5-17.5); LYMPHOCYTES 10.7 % (15-50); MCHC 32.4 g/dL (31.0-37.0); MCV 86.6 fL (80.0-100.0); MEAN PLATELET VOLUME 9.5 fL (7.4-10.4); MONOCYTES 11.2 % (2-11); NEUTROPHILS 77.1 % (40-80); PLATELET COUNT 202 10x3/uL (130-400); RBC 3.14 10x6/uL (4.20-6.10); RDW 15.8 % (11.5-14.5); WBC 4.8 10x3/uL (4.8-10.8)
[2020-08-23 08:48] LABS: ALBUMIN 2.3 g/dL (3.4-5.0); ANION GAP 7.2 mmol/L (8-16); BILIRUBIN - TOTAL 0.81 mg/dL (0.2-1.3); CALCIUM 8.3 mg/dL (8.5-10.1); CARBON DIOXIDE 29.1 mmol/L (21.0-32.0); CREATININE - SERUM 1.1 mg/dL (0.6-1.3); POTASSIUM - SERUM 4.3 mmol/L (3.5-5.1); PROTEIN - SERUM 5.6 g/dL (6.4-8.2)
[2020-08-23] MEDS ORDERED: DECADRON4 MG PO (10:22)
[2020-08-23] MEDS ORDERED: ADOXA100 MG PO (10:24)
--- NOTE | 2020-08-23 12:32 | MORECARE ---
CASE MANAGEMENT DISCHARGE SUMMARY PATIENT: HARRY GOLDSMITH UNIT: [id number] ADM DATE: 08/15/20 AGE: 85 : 37 SEX: M ROOM/BED: D.7576 AUTHOR: KIRSTEN GARCIA PHYSICIAN: REFERRING PHYSICIAN: MARIELA WILKES MD DATE OF SERVICE: 08/23/20 Discharge Plan Patient Name: HARRY GOLDSMITH Facility: [facility]:[place] : 1935 Planned Disposition: Anticipated Discharge Date: Discharge Date: Expected LOS: Initial Reviewer: [email or web address] Initial Review Date: 08/15/2020 Generated: 08/23/20 1:31 pm Comments DCP- Discharge Planning Updated by [email or web address]: Nelly You on 08/23/20 11:[address] CM called patient in the room. He states he has been ambulating in the room without difficulty. States he uses a cane and a walker as needed at home for ambulation. I called patient's daughter, July. July states her brother will come to pick patient up. I did inform her that he would need to be Isolated for 6 more days as long as he remained symptom free. I called [facility] and left a message with Junie to call concerning discharge. Clinical faxed to [facility] to bring portable tank, I spoke with Antoine. DCP- Discharge Planning Updated by [id number]: Claudette Olguin on 08/19/20 6:[address] Patient Name: HARRY GOLDSMITH Admission Status: ER Accout number: [id number] Admission Date: 08-15-2020 : 1935 Admission Diagnosis:FEVER, UNSPECIFIED Attending: MARIELA WILKES Current LOS: 4 Anticipated DC Date: Planned Disposition: Primary Insurance: MEDICARE A & B Discharge Planning Comments: CM called pt room, but patient was confused so CM called July (dtr) at [phone] to complete initial dc planning assessment. CM educated patient on the CM role and verbal consent given by July to complete assessment. CM verified patient's address, phone number, and emergency contact phone numbers. Patient lives alone, but his other daughter Erik and his grand son stay with him sometimes. The patient has [facility] and has 02 concentrator and a portable oxygen tank with [facility]. Mr Goldsmith is on 3 liters oxygen at home. At discharge July would like the patient to return home and be independent. BERNICE verbalized to resume [facility], and [facility]. CM educated July about increased weakness associated with Covid, and feels it is unsafe for the patient to return home alone while being this weak, and confused. CM suggests rehab. July states she knows he needs rehab and requests he go [facility] rehab. CM stated rehab is not accepting covid positive patients at this time. Stated the next rehab would be at a SNF. July states she does not want her father to be in a home, but will consider it if his condition worsens. CM will reach out to July if Mr Goldsmith becomes weaker and it becomes unsafe to be alone at discharge. CM will continue to follow and will assist as needed with dc plans/needs. Sales Relationship Manager: Claudette Olguin DCPIA - Discharge Planning Initial Assessment Updated by [id number]: Claudette Olguin on 08/19/20 6:57 pm * Is the patient Alert and Oriented? No * How many steps to enter\exit or inside your home? ramp * PCP jena * [facility] * Preadmission Environment Home Alone * ADLs Independent * Equipment Cane Oxygen * List name and contact numbers for known caregivers / representatives who currently or will assist patient after discharge: July [phone] * Verbal permission to speak to the caregivers and representatives has been obtained from the patient. Yes * Community resources currently utilized Home Health * Please name any agencies selected above. [facility] * Additional services required to return to the preadmission environment? Yes * Can the patient safely return to the preadmission environment? No * Has this patient been hospitalized within the prior 30 days at any hospital? Yes Coverage Notice Reviewer: [id number] - Claudette Olguin Notice Issued Date-Time: 08/19/2020 14:00 Notice Type: Patient Choice Letter Notice Delivered To: Family Member Relationship to Patient: Daughter Senior Db2 Systems Programmer Name: July Delivery Method: PHONE - Phone Cleopatra Days: Prior Verbal Notification: Yes Recipient Understood Notice: Yes Recipient Signature: Med Rec Note Co-signed by Attending: Coverage Notice Comment: [facility], and [facility] Reviewer: [id number] Ruben You Notice Issued Date-Time: 08/23/2020 12:18 Notice Type: IM Discharge Notice Notice Delivered To: Patient Relationship to Patient: Self Senior Db2 Systems Programmer Name: Delivery Method: PHONE - Phone Cleopatra Days: Prior Verbal Notification: Recipient Understood Notice: Yes Recipient Signature: Med Rec Note Co-signed by Attending: Coverage Notice Comment: IMM explained via phone, voiced understanding, states is ready for discharge. Last DP export: 08/19/20 6:10 p Patient Name: HARRY GOLDSMITH Page [id number] at 1232 All edits/amendments must be made on the electronic document DICTATION DATE: 08/23/20 1231 SEQUINS WINDER: CORNEL 08/23/20 1231 RPT#: [id number] DC DATE: STATUS: ADM IN [facility] [address] [place] [address] END OF REPORT
--- NOTE | 2020-08-23 12:38 | MORECARE ---
CASE MANAGEMENT DISCHARGE SUMMARY PATIENT: HARRY GOLDSMITH UNIT: [id number] ADM DATE: 08/15/20 AGE: 85 : 37 SEX: M ROOM/BED: D.7417 AUTHOR: KIRSTEN GARCIA PHYSICIAN: REFERRING PHYSICIAN: MARIELA WILKES MD DATE OF SERVICE: 08/23/20 Discharge Plan Patient Name: HARRY GOLDSMITH Facility: [facility]:[place] : 1935 Planned Disposition: Anticipated Discharge Date: Discharge Date: Expected LOS: Initial Reviewer: [email or web address] Initial Review Date: 08/15/2020 Generated: 08/23/20 1:38 pm Comments DCP- Discharge Planning Updated by [email or web address]: Nelly You on 08/23/20 11:[address] CM called patient in the room. He states he has been ambulating in the room without difficulty. States he uses a cane and a walker as needed at home for ambulation. I called patient's daughter, July. July states her brother will come to pick patient up. I did inform her that he would need to be Isolated for 6 more days as long as he remained symptom free. I called [facility] and left a message with Junie to call concerning discharge. Clinical faxed to [facility] to bring portable tank, I spoke with Antoine. DCP- Discharge Planning Updated by [id number]: Claudette Olguin on 08/19/20 6:[address] Patient Name: HARRY GOLDSMITH Admission Status: ER Accout number: [id number] Admission Date: 08-15-2020 : 1935 Admission Diagnosis:FEVER, UNSPECIFIED Attending: MARIELA WILKES Current LOS: 4 Anticipated DC Date: Planned Disposition: Primary Insurance: MEDICARE A & B Discharge Planning Comments: CM called pt room, but patient was confused so CM called July (dtr) at [phone] to complete initial dc planning assessment. CM educated patient on the CM role and verbal consent given by July to complete assessment. CM verified patient's address, phone number, and emergency contact phone numbers. Patient lives alone, but his other daughter Erik and his grand son stay with him sometimes. The patient has [facility] and has 02 concentrator and a portable oxygen tank with [facility]. Mr Goldsmith is on 3 liters oxygen at home. At discharge July would like the patient to return home and be independent. BERNICE verbalized to resume [facility], and [facility]. CM educated July about increased weakness associated with Covid, and feels it is unsafe for the patient to return home alone while being this weak, and confused. CM suggests rehab. July states she knows he needs rehab and requests he go to [facility] IP rehab. CM stated rehab is not accepting covid positive patients at this time. Stated the next rehab would be at a SNF. July states she does not want her father to be in a home, but will consider it if his condition worsens. CM will reach out to July if Mr Goldsmith becomes weaker and it becomes unsafe to be alone at discharge. CM will continue to follow and will assist as needed with dc plans/needs. Corsetier: Claudette Olguin DCPIA - Discharge Planning Initial Assessment Updated by [id number]: Claudette Olguin on 08/19/20 6:57 pm * Is the patient Alert and Oriented? No * How many steps to enter\exit or inside your home? ramp * PCP jena * [facility] * Preadmission Environment Home Alone * ADLs Independent * Equipment Cane Oxygen * List name and contact numbers for known caregivers / representatives who currently or will assist patient after discharge: July [phone] * Verbal permission to speak to the caregivers and representatives has been obtained from the patient. Yes * Community resources currently utilized Home Health * Please name any agencies selected above. [facility] * Additional services required to return to the preadmission environment? Yes * Can the patient safely return to the preadmission environment? No * Has this patient been hospitalized within the prior 30 days at any hospital? Yes External Providers [facility]: [facility] Next Contact Date: Service Request Date: Service Type: Resolution: Reviewer: Comments: Coverage Notice Reviewer: [id number] - Claudette Olguin Notice Issued Date-Time: 08/19/2020 14:00 Notice Type: Patient Choice Letter Notice Delivered To: Family Member Relationship to Patient: Daughter Piler Name: July Delivery Method: PHONE - Phone Cleoparta Days: Prior Verbal Notification: Yes Recipient Understood Notice: Yes Recipient Signature: Med Rec Note Co-signed by Attending: Coverage Notice Comment: [facility], and [facility] Reviewer: [email or web address] Ruben You Notice Issued Date-Time: 08/23/2020 12:18 Notice Type: IM Discharge Notice Notice Delivered To: Patient Relationship to Patient: Self Piler Name: Delivery Method: PHONE - Phone Cleopatra Days: Prior Verbal Notification: Recipient Understood Notice: Yes Recipient Signature: Med Rec Note Co-signed by Attending: Coverage Notice Comment: IMM explained via phone, voiced understanding, states is ready for discharge. Last DP export: 08/23/20 11:32 a Patient Name: HARRY GOLDSMITH Page [phone] at 1238 All edits/amendments must be made on the electronic document DICTATION DATE: 08/23/20 1238 MANAGER SITE: CORNEL 08/23/20 1238 RPT#: [id number] DC DATE: STATUS: ADM IN [facility] [address] [place] [address] END OF REPORT
--- NOTE | 2020-08-23 12:39 | NUR ---
RX FOR DOXYCYCLINE AND DECADRON CALLED TO [facility], PT'S USUAL PHARMACY CLOSED FOR WEEKEND.
--- NOTE | 2020-08-23 13:44 | NUR ---
ASSESSMENT REVIEWED. I AGREE WITH JAYDON WAITE ASSESSMENT.
--- NOTE | 2020-08-23 14:12 | MORECARE ---
CASE MANAGEMENT DISCHARGE SUMMARY PATIENT: HARRY GOLDSMITH UNIT: [id number] ADM DATE: 08/15/20 AGE: 85 : 37 SEX: M ROOM/BED: D.0979 AUTHOR: KIRSTEN GARCIA PHYSICIAN: REFERRING PHYSICIAN: MARIELA WILKES MD DATE OF SERVICE: 08/23/20 Discharge Plan Patient Name: HARRY GOLDSMITH Facility: [facility]:[place] : 1935 Planned Disposition: Anticipated Discharge Date: Discharge Date: Expected LOS: Initial Reviewer: [email or web address] Initial Review Date: 08/15/2020 Generated: 08/23/20 3:12 pm Comments DCP- Discharge Planning Updated by [email or web address]: Nelly You on 08/23/20 1:[address] I spoke with Zarina with [facility], she states patient is on services with their [facility]. I called [facility] and spoke with Raisa and clinical faxed to [phone]. Patient's son states they do have full bottles of portable oxygen at his home and will bring one when he picks up the patient. Home today with home health. DCP- Discharge Planning Updated by [id number]: Nelly You on 08/23/20 11:[address] CM called patient in the room. He states he has been ambulating in the room without difficulty. States he uses a cane and a walker as needed at home for ambulation. I called patient's daughter, July. July states her brother will come to pick patient up. I did inform her that he would need to be Isolated for 6 more days as long as he remained symptom free. I called [facility] and left a message with Junie to call concerning discharge. Clinical faxed to [facility] to bring portable tank, I spoke with Antoine. DCP- Discharge Planning Updated by [email or web address]: Claudette Olguin on 08/19/20 6:[address] Patient Name: HARRY GOLDSMITH Admission Status: ER Accout number: [id number] Admission Date: 08-15-2020 : 1935 Admission Diagnosis:FEVER, UNSPECIFIED Attending: MARIELA WILKES Current LOS: 4 Anticipated DC Date: Planned Disposition: Primary Insurance: MEDICARE A & B Discharge Planning Comments: CM called pt room, but patient was confused so CM called July (dtr) at [phone] to complete initial dc planning assessment. CM educated patient on the CM role and verbal consent given by July to complete assessment. CM verified patient's address, phone number, and emergency contact phone numbers. Patient lives alone, but his other daughter Erik and his grand son stay with him sometimes. The patient has [facility] and has 02 concentrator and a portable oxygen tank with [facility]. Mr Goldsmith is on 3 liters oxygen at home. At discharge July would like the patient to return home and be independent. BERNICE verbalized to resume [facility] and [facility]. CM educated July about increased weakness associated with Covid, and feels it is unsafe for the patient to return home alone while being this weak, and confused. CM suggests rehab. July states she knows he needs rehab and requests he go to [facility] rehab. CM stated rehab is not accepting covid positive patients at this time. Stated the next rehab would be at a SNF. July states she does not want her father to be in a home, but will consider it if his condition worsens. CM will reach out to July if Mr Goldsmith becomes weaker and it becomes unsafe to be alone at discharge. CM will continue to follow and will assist as needed with dc plans/needs. Hunting Sales Leader: Claudette Olguin DCPIA - Discharge Planning Initial Assessment Updated by [id number]: Claudette Olguin on 08/19/20 6:57 pm * Is the patient Alert and Oriented? No * How many steps to enter\exit or inside your home? ramp * PCP jena * [facility] * Preadmission Environment Home Alone * ADLs Independent * Equipment Cane Oxygen * List name and contact numbers for known caregivers / representatives who currently or will assist patient after discharge: July [phone] * Verbal permission to speak to the caregivers and representatives has been obtained from the patient. Yes * Community resources currently utilized Home Health * Please name any agencies selected above. [facility] * Additional services required to return to the preadmission environment? Yes * Can the patient safely return to the preadmission environment? No * Has this patient been hospitalized within the prior 30 days at any hospital? Yes Coverage Notice Reviewer: [email or web address] - Claudette Edds Notice Issued Date-Time: 08/19/2020 14:00 Notice Type: Patient Choice Letter Notice Delivered To: Family Member Relationship to Patient: Daughter Office Services Manager Name: July Delivery Method: PHONE - Phone Cleopatra Days: Prior Verbal Notification: Yes Recipient Understood Notice: Yes Recipient Signature: Med Rec Note Co-signed by Attending: Coverage Notice Comment: [facility] Reviewer: [id number] - Nelly Avelino Notice Issued Date-Time: 08/23/2020 12:18 Notice Type: IM Discharge Notice Notice Delivered To: Patient Relationship to Patient: Self Office Services Manager Name: Delivery Method: PHONE - Phone Cleopatra Days: Prior Verbal Notification: Recipient Understood Notice: Yes Recipient Signature: Med Rec Note Co-signed by Attending: Coverage Notice Comment: IMM explained via phone, voiced understanding, states is ready for discharge. Last DP export: 08/23/20 11:38 a Patient Name: HARRY GOLDSMITH Page [phone] at 1412 All edits/amendments must be made on the electronic document DICTATION DATE: 08/23/20 1412 COMPLIANCE AIDE: CORNEL 08/23/20 1412 RPT#: [id number] DC DATE: STATUS: ADM IN [facility] [address] [place] [address] END OF REPORT
--- NOTE | 2020-08-23 14:19 | MORECARE ---
CASE MANAGEMENT DISCHARGE SUMMARY PATIENT: HARRY GOLDSMITH UNIT: [id number] ADM DATE: 08/15/20 AGE: 85 : 37 SEX: M ROOM/BED: D.6649 AUTHOR: KIRSTEN GARCIA PHYSICIAN: REFERRING PHYSICIAN: MARIELA WILKES MD DATE OF SERVICE: 08/23/20 Discharge Plan Patient Name: HARRY GOLDSMITH Facility: [facility]:[place] : 1935 Planned Disposition: Anticipated Discharge Date: Discharge Date: Expected LOS: Initial Reviewer: [id number] Initial Review Date: 08/15/2020 Generated: 08/23/20 3:18 pm Comments DCP- Discharge Planning Updated by [id number]: Nelly العراقيkerrie on 08/23/20 1:[address] I spoke with Zarina with [facility], she states patient is on services with their [facility]. I called [facility] and spoke with Raisa and clinical faxed to [phone]. Rodriguez returned call with [facility] and will do BERNICE tomorrow. Patient's son states they do have full bottles of portable oxygen at his home and will bring one when he picks up the patient. Home today with home health. DCP- Discharge Planning Updated by [id number]: Nelly You on 08/23/20 11:[address] CM called patient in the room. He states he has been ambulating in the room without difficulty. States he uses a cane and a walker as needed at home for ambulation. I called patient's daughter, July. July states her brother will come to pick patient up. I did inform her that he would need to be Isolated for 6 more days as long as he remained symptom free. I called [facility] and left a message with Junie to call concerning discharge. Clinical faxed to [facility] and [facility] to bring portable tank, I spoke with Antoine. DCP- Discharge Planning Updated by [id number]: Claudette Olguin on 08/19/20 6:[address] Patient Name: HARRY GOLDSMITH Admission Status: ER Accout number: [id number] Admission Date: 08-15-2020 : 1935 Admission Diagnosis:FEVER, UNSPECIFIED Attending: MARIELA WILKES Current LOS: 4 Anticipated DC Date: Planned Disposition: Primary Insurance: MEDICARE A & B Discharge Planning Comments: CM called pt room, but patient was confused so CM called July (dtr) at [phone] to complete initial dc planning assessment. CM educated patient on the CM role and verbal consent given by July to complete assessment. CM verified patient's address, phone number, and emergency contact phone numbers. Patient lives alone, but his other daughter Erik and his grand son stay with him sometimes. The patient has [facility] and has 02 concentrator and a portable oxygen tank with [facility]. Mr Goldsmith is on 3 liters oxygen at home. At discharge July would like the patient to return home and be independent. BERNICE verbalized to resume [facility] , and [facility]. CM educated July about increased weakness associated with Covid, and feels it is unsafe for the patient to return home alone while being this weak, and confused. CM suggests rehab. July states she knows he needs rehab and requests he go to [facility] rehab. CM stated rehab is not accepting covid positive patients at this time. Stated the next rehab would be at a SNF. July states she does not want her father to be in a home, but will consider it if his condition worsens. CM will reach out to July if Mr Goldsmith becomes weaker and it becomes unsafe to be alone at discharge. CM will continue to follow and will assist as needed with dc plans/needs. Education Trainer: Claudette Olguin DCPIA - Discharge Planning Initial Assessment Updated by [id number]: Claudette Olguin on 08/19/20 6:57 pm * Is the patient Alert and Oriented? No * How many steps to enter\exit or inside your home? ramp * PCP jena * [facility] * Preadmission Environment Home Alone * ADLs Independent * Equipment Cane Oxygen * List name and contact numbers for known caregivers / representatives who currently or will assist patient after discharge: July [phone] * Verbal permission to speak to the caregivers and representatives has been obtained from the patient. Yes * Community resources currently utilized Home Health * Please name any agencies selected above. [facility] * Additional services required to return to the preadmission environment? Yes * Can the patient safely return to the preadmission environment? No * Has this patient been hospitalized within the prior 30 days at any hospital? Yes Coverage Notice Reviewer: [id number] Ruben Olguin Notice Issued Date-Time: 08/19/2020 14:00 Notice Type: Patient Choice Letter Notice Delivered To: Family Member Relationship to Patient: Daughter Air Defense Control Officer Name: July Delivery Method: PHONE - Phone Cleopatra Days: Prior Verbal Notification: Yes Recipient Understood Notice: Yes Recipient Signature: Med Rec Note Co-signed by Attending: Coverage Notice Comment: Resume [facility], and [facility] Reviewer: [id number] - Nelly You Notice Issued Date-Time: 08/23/2020 12:18 Notice Type: IM Discharge Notice Notice Delivered To: Patient Relationship to Patient: Self Air Defense Control Officer Name: Delivery Method: PHONE - Phone Cleopatra Days: Prior Verbal Notification: Recipient Understood Notice: Yes Recipient Signature: Med Rec Note Co-signed by Attending: Coverage Notice Comment: IMM explained via phone, voiced understanding, states is ready for discharge. Last DP export: 08/23/20 1:12 p Patient Name: HARRY GOLDSMITH Page [phone] at 1419 All edits/amendments must be made on the electronic document DICTATION DATE: 08/23/201417 CONSTRUCTION ACCOUNTANT: CORNEL 08/23/201417 RPT#: [id number] DC DATE: STATUS: ADM IN [facility] [address] [place] [address] END OF REPORT
--- NOTE | 2020-08-23 14:25 | NUR ---
PT ESCORTED OUT VIA WHEELCHIAR TO CAR. PLACED IN CAR WITH ASSITANCE.
--- NOTE | 2020-08-25 08:45 | MORECARE ---
CASE MANAGEMENT DISCHARGE SUMMARY PATIENT: HARRY GOLDSMITH UNIT: [id number] ADM DATE: 08/15/20 AGE: 85 : 37 SEX: M ROOM/BED: D.0089 AUTHOR: KIRSTEN GARCIA PHYSICIAN: REFERRING PHYSICIAN: MARIELA WILKES MD DATE OF SERVICE: 08/25/20 Discharge Plan Patient Name: HARRY GOLDSMITH Facility: [facility]:[place] : 1935 Planned Disposition: Anticipated Discharge Date: Discharge Date: 08/23/2020 Expected LOS: Initial Reviewer: [email or web address] Initial Review Date: 08/15/2020 Generated: 08/25/20 9:44 am Comments DCP- Discharge Planning Updated by [email or web address]: Nelly Avelino on 08/23/20 1:[address] I spoke with Zarina with [facility], she states patient is on services with their [facility]. I called [facility] and spoke with Raisa and clinical faxed to [phone]. Rodriguez returned call with [facility] and will do BERNICE tomorrow. Patient's son states they do have full bottles of portable oxygen at his home and will bring one when he picks up the patient. Home today with home health. DCP- Discharge Planning Updated by [email or web address]: Nelly You on 08/23/20 11:[address] CM called patient in the room. He states he has been ambulating in the room without difficulty. States he uses a cane and a walker as needed at home for ambulation. I called patient's daughter, July. July states her brother will come to pick patient up. I did inform her that he would need to be Isolated for 6 more days as long as he remained symptom free. I called [facility] and left a message with Junie to call concerning discharge. Clinical faxed to [facility] and [facility] to bring portable tank, I spoke with Antoine. DCP- Discharge Planning Updated by [id number]: Claudette Olguin on 08/19/20 6:[address] Patient Name: HARRY GOLDSMITH Admission Status: ER Accout number: [id number] Admission Date: 08-15-2020 : 1935 Admission Diagnosis:FEVER, UNSPECIFIED Attending: MARIELA WILKES Current LOS: 4 Anticipated DC Date: Planned Disposition: Primary Insurance: MEDICARE A & B Discharge Planning Comments: CM called pt room, but patient was confused so CM called July (dtr) at [phone] to complete initial dc planning assessment. CM educated patient on the CM role and verbal consent given by July to complete assessment. CM verified patient's address, phone number, and emergency contact phone numbers. Patient lives alone, but his other daughter Erik and his grand son stay with him sometimes. The patient has [facility] and has 02 concentrator and a portable oxygen tank with [facility]. Mr Goldsmith is on 3 liters oxygen at home. At discharge July would like the patient to return home and be independent. BERNICE verbalized to resume [facility] , and [facility]. CM educated July about increased weakness associated with Covid, and feels it is unsafe for the patient to return home alone while being this weak, and confused. CM suggests rehab. July states she knows he needs rehab and requests he go to [facility] IP rehab. CM stated rehab is not accepting covid positive patients at this time. Stated the next rehab would be at a SNF. July states she does not want her father to be in a home, but will consider it if his condition worsens. CM will reach out to July if Mr Goldsmith becomes weaker and it becomes unsafe to be alone at discharge. CM will continue to follow and will assist as needed with dc plans/needs. Software Applications Developer: Claudette Olguin DCPIA - Discharge Planning Initial Assessment Updated by [email or web address]: Claudette Olguin on 08/19/20 6:57 pm * Is the patient Alert and Oriented? No * How many steps to enter\exit or inside your home? ramp * PCP jena * [facility] * Preadmission Environment Home Alone * ADLs Independent * Equipment Cane Oxygen * List name and contact numbers for known caregivers / representatives who currently or will assist patient after discharge: July [phone] * Verbal permission to speak to the caregivers and representatives has been obtained from the patient. Yes * Community resources currently utilized Home Health * Please name any agencies [facility]. [facility] * Additional services required to return to the preadmission environment? Yes * Can the patient safely return to the preadmission environment? No * Has this patient been hospitalized within the prior 30 days at any hospital? Yes Coverage Notice Reviewer: [email or web address] Ruben Claudette Sharif Notice Issued Date-Time: 08/19/2020 14:00 Notice Type: Patient Choice Letter Notice Delivered To: Family Member Relationship to Patient: Daughter Mail Clerks Supervisor Name: July Delivery Method: PHONE - Phone Cleopatra Days: Prior Verbal Notification: Yes Recipient Understood Notice: Yes Recipient Signature: Med Rec Note Co-signed by Attending: Coverage Notice Comment: Resume [facility], and [facility] Reviewer: [id number] - Nelly You Notice Issued Date-Time: 08/23/2020 12:18 Notice Type: IM Discharge Notice Notice Delivered To: Patient Relationship to Patient: Self Mail Clerks Supervisor Name: Delivery Method: PHONE - Phone Cleopatra Days: Prior Verbal Notification: Recipient Understood Notice: Yes Recipient Signature: Med Rec Note Co-signed by Attending: Coverage Notice Comment: IMM explained via phone, voiced understanding, states is ready for discharge. Last DP export: 08/23/20 1:19 p Patient Name: HARRY GOLDSMITH Page [id number] at 0845 All edits/amendments must be made on the electronic document DICTATION DATE: 08/25/20843 SUPERVISOR: CORNEL 08/25/20843 RPT#: [id number] DC DATE:08/23/20 STATUS: DIS IN [facility] [address] [place] [address] END OF REPORT
== END 2020-08-23 14:32 | disposition home health service (06) | DRG 177 ==
LOC: D.ER 11:09 → D.M2 14:04
PROVIDERS: Family Medicine; Internal Medicine Pulmonary Disease; ADMIT Emergency Medicine; ATTEND Emergency Medicine
PROC: XW033E5 Introduction of Remdesivir Anti-infective into Peripheral Vein, Percutaneous Approach, New Technology Group 5 (ICD-10-PCS; principal; 2020-08-18)
DX: U07.1 COVID-19 (principal); J96.21 Acute and chronic respiratory failure with hypoxia; I21.4 Non-ST elevation (NSTEMI) myocardial infarction; J12.89 Other viral pneumonia; I50.33 Acute on chronic diastolic (congestive) heart failure; I13.0 Hypertensive heart and chronic kidney disease with heart failure and stage 1 through stage 4 chronic kidney disease, or unspecified chronic kidney disease; N17.9 Acute kidney failure, unspecified; E87.1 Hypo-osmolality and hyponatremia; I48.20 Chronic atrial fibrillation, unspecified; R04.2 Hemoptysis; J98.11 Atelectasis; N18.9 Chronic kidney disease, unspecified; E11.22 Type 2 diabetes mellitus with diabetic chronic kidney disease; E11.65 Type 2 diabetes mellitus with hyperglycemia; D63.1 Anemia in chronic kidney disease; E78.5 Hyperlipidemia, unspecified; Z79.01 Long term (current) use of anticoagulants; K21.9 Gastro-esophageal reflux disease without esophagitis; I35.0 Nonrheumatic aortic (valve) stenosis; I25.10 Atherosclerotic heart disease of native coronary artery without angina pectoris; G25.0 Essential tremor; R04.0 Epistaxis; Z87.891 Personal history of nicotine dependence

== ENCOUNTER 2020-08-29 12:18 | Inpatient (IN) | payer MEDICARE ==
[~2020-08-29] VITALS: Ht 185.4 cm; Wt 86.2 kg
[~2020-08-29 12:18] MED LIST changes: +ADOXA100 MG PO; +DECADRON4 MG PO; +DOXYCYCLINE HY100 M2 PO
[2020-08-29 12:40] VITALS: BP 134/62
[2020-08-29 13:37] LABS: CALC OSMOLALITY 282 mosm/kg (275-300); CARBON DIOXIDE 32.2 mmol/L (21.0-32.0); CHLORIDE - SERUM 97 mmol/L (98-107); GLUCOSE 242 mg/dL (74-106); POTASSIUM - SERUM 4.6 mmol/L (3.5-5.1); SODIUM 132 mmol/L (136-145); UREA NITROGEN 41 mg/dL (7-18); eGFR NON AFRICAN AMERICAN 76 mL/min (90-120)
[2020-08-29 13:38] LABS: APTT 35.1 SECONDS (22.8-39.4); INR 1.22 (0.85-1.17); PROTIME 15.4 SECONDS (11.6-15.0)
[2020-08-29 13:41] LABS: HEMATOCRIT 29.5 % (42.0-54.0); HEMOGLOBIN 9.6 g/dL (13.5-17.5); MCH 28.6 pg (26.0-34.0); MCHC 32.5 g/dL (31.0-37.0); MCV 87.8 fL (80.0-100.0); PLATELET COUNT 240 10x3/uL (130-400); RBC 3.36 10x6/uL (4.20-6.10); RDW 16.5 % (11.5-14.5); WBC 7.2 10x3/uL (4.8-10.8)
[2020-08-29 14:00] LABS: ALBUMIN 2.6 g/dL (3.4-5.0); ALKALINE PHOSPHATASE 231 U/L (30-120); ALT (SGPT) 36 U/L (10-68); BILIRUBIN - TOTAL 0.66 mg/dL (0.2-1.3); CKMB 2.4 U/L (0.0-3.6); CREATINE KINASE 21 UL (21-232); LYMPHOCYTES 15 % (15-50); MAGNESIUM - SERUM 1.7 mg/dL (1.8-2.4); NEUTROPHILS 81 % (40-80); PLATELET ESTIMATE NORMAL; PROTEIN - SERUM 6.1 g/dL (6.4-8.2); THYROID STIMULATING HORMONE 1.87 uIU/mL (0.36-3.74)
--- NOTE | 2020-08-29 14:00 | NUR ---
SPOKE TO PT REGARDING HIS HOME MEDICATIONS AND THE LAST TIME HE TOOK THEM. PER THE PT HE BELIEVES THAT HE TOOK THEM THIS MORNING. PT'S MAR ADJUSTED TO REFLECT.
[2020-08-29 14:10] LABS: TROPONIN-I 0.479 ng/mL (0.000-0.060)
--- NOTE | 2020-08-29 14:18 | NUR ---
DR. SOUZAOFIED OF CARDIOLOGY CONSULT AND ELEVATED TROPONIN.
[2020-08-29 14:24] LABS: BILIRUBIN NEGATIVE (NEGATIVE); KETONE NEGATIVE (NEGATIVE); NITRITE NEGATIVE (NEGATIVE); UROBILINOGEN NORMAL mg/dL (< 2)
[2020-08-29 14:35] LABS: CHOL - HDL RATIO 2.1 ratio (2.3-4.9); LDL-HDL RATIO 0.9 ratio (1.5-3.5)
--- NOTE | 2020-08-29 16:33 | NUR ---
REPORT CALLED TO JULY ZAIDI ON [facility]. PT'S ROOM IS NOT CLEAN AT THIS TIME, BUT THEY ARE TO CALL BACK WHEN THE ROOM IS CLEAN AND THE PT IS ABLE TO COME TO THEIR DEPARTMENT.
--- NOTE | 2020-08-29 19:00 | NUR ---
ADMIT TO ROOM 2117 FROM ER. ALERT/ORIENTED. ABLE TO TRANSFER WITH ONE PERSON ASSIST TO HIS BED. ADMISSION ASSESSMENT AND HISTORY INITIATED. HOME MEDS REVIEWED/UPDATED. NONLABORED RESPIRATIONS ON ROOM AIR. TELEMETRY STARTED, PACEMAKER NOTED. SAFETY PRECAUTIONS EXPLAINED. PLAN OF CARE INITIATED. WILL BE NPO AFTER MIDNIGHT FOR CARDIOLOGY CONSULT IN AM.
--- NOTE | 2020-08-29 19:00 | NUR ---
PT TAKEN VIA WC TO ROOM
[2020-08-29 19:40] LABS: CKMB 2.2 U/L (0.0-3.6); CREATINE KINASE 21 UL (21-232); TROPONIN-I 0.337 ng/mL (0.000-0.060)
[2020-08-29 21:41] VITALS: BP 112/47
[2020-08-29 23:31] VITALS: BP 112/47; BMI 25.1
[2020-08-30 01:46] LABS: BASOPHILS 0.1 % (0-2); EOSINOPHILS 1.5 % (0-7); HEMATOCRIT 30.5 % (42.0-54.0); HEMOGLOBIN 9.8 g/dL (13.5-17.5); IMMATURE GRANULOCYTES 3.9 % (0-5); LYMPHOCYTES 13.1 % (15-50); MCHC 32.1 g/dL (31.0-37.0); MCV 87.1 fL (80.0-100.0); MEAN PLATELET VOLUME 9.7 fL (7.4-10.4); MONOCYTES 11.7 % (2-11); NEUTROPHILS 69.7 % (40-80); PLATELET COUNT 204 10x3/uL (130-400); RDW 16.5 % (11.5-14.5); WBC 6.7 10x3/uL (4.8-10.8)
[2020-08-30 02:08] LABS: ALBUMIN 2.6 g/dL (3.4-5.0); ALKALINE PHOSPHATASE 216 U/L (30-120); ALT (SGPT) 31 U/L (10-68); BILIRUBIN - TOTAL 0.73 mg/dL (0.2-1.3); CALC OSMOLALITY 274 mosm/kg (275-300); CALCIUM 8.8 mg/dL (8.5-10.1); CARBON DIOXIDE 30.4 mmol/L (21.0-32.0); CHLORIDE - SERUM 97 mmol/L (98-107); CHOLESTEROL, TOTAL 137 mg/dL (0-200); CREATININE - SERUM 0.9 mg/dL (0.6-1.3); GLUCOSE 174 mg/dL (74-106); HDL CHOLESTEROL 67 mg/dL (32-96); LDL CHOLESTEROL 60 mg/dL (0-100); LDL-HDL RATIO 0.9 ratio (1.5-3.5); MAGNESIUM - SERUM 1.7 mg/dL (1.8-2.4); PHOSPHOROUS 3.6 mg/dL (2.5-4.9); POTASSIUM - SERUM 4.3 mmol/L (3.5-5.1); PROTEIN - SERUM 6.1 g/dL (6.4-8.2); SODIUM 132 mmol/L (136-145); T4 THYROXIN - FREE 1.29 ng/dL (0.76-1.46); THYROID STIMULATING HORMONE 1.79 uIU/mL (0.36-3.74); TRIGLYCERIDE 53 mg/dL (30-200); UREA NITROGEN 29 mg/dL (7-18); eGFR NON AFRICAN AMERICAN 85 mL/min (90-120)
[2020-08-30 02:31] LABS: CKMB 2.3 U/L (0.0-3.6); CREATINE KINASE 20 UL (21-232)
[2020-08-30 02:40] LABS: TROPONIN-I 0.201 ng/mL (0.000-0.060)
[2020-08-30 04:40] VITALS: BP 104/41
--- NOTE | 2020-08-30 06:33 | NUR ---
NO CHANGE FROM INITIAL SHIFT ASSESSMENT. CONTINUE PLAN OF CARE. CALL LIGHT IN REACH. BED LOW AND SR UP X 2. REPORT TO ONCOMING SHIFT.
[2020-08-30 08:00] VITALS: BP 127/54
[2020-08-30 10:30] VITALS: BP 95/47
[2020-08-30 12:00] VITALS: Ht 185.4 cm; Wt 86.2 kg
[2020-08-30 15:00] VITALS: BP 113/48
--- NOTE | 2020-08-30 20:16 | NUR ---
INITIAL REPORT AND ROUNDS COMPLETED. SEE ASSESSMENTS. PT RESTING IN BED WITH NO DISTRESS. CALL LIGHT IN REACH. CPOC.
[2020-08-30 21:42] VITALS: BP 123/53
[2020-08-31 01:49] VITALS: BP 105/46
--- NOTE | 2020-08-31 05:21 | NUR ---
PT ATTEMPTS TO VOID TO URINAL BUT OFTEN MISSES AND ENDS UP WETTING HIS BED. COMPLETE BED CHANGE AND PERSONAL CARE PROVIDED AT THIS TIME. PT IS ABLE TO STAND AND WALK A FEW STEPS BESIDE HIS BED WITH SBA. CPOC.
[2020-08-31 05:39] VITALS: BP 102/44
[2020-08-31 06:53] LABS: BASOPHILS 0 % (0-2); EOSINOPHILS 1.2 % (0-7); HEMATOCRIT 31.8 % (42.0-54.0); HEMOGLOBIN 10.1 g/dL (13.5-17.5); IMMATURE GRANULOCYTES 2.1 % (0-5); LYMPHOCYTES 12.6 % (15-50); MCH 28.1 pg (26.0-34.0); MCHC 31.8 g/dL (31.0-37.0); MCV 88.6 fL (80.0-100.0); MEAN PLATELET VOLUME 10.1 fL (7.4-10.4); MONOCYTES 11.7 % (2-11); NEUTROPHILS 72.4 % (40-80); PLATELET COUNT 216 10x3/uL (130-400); RBC 3.59 10x6/uL (4.20-6.10); RDW 16.7 % (11.5-14.5); WBC 7.5 10x3/uL (4.8-10.8)
--- NOTE | 2020-08-31 07:07 | NUR ---
REPORT TO ONCOMING NURSE. PT HAS RESTED WITH SEVERAL EPISODES OF PERSONAL CARE RELATED TO SPILLING URINE. PT CLEAR/ORIENTED AND PLEASANT. CPOC.
[2020-08-31 07:27] LABS: ALBUMIN 2.7 g/dL (3.4-5.0); ALKALINE PHOSPHATASE 241 U/L (30-120); ALT (SGPT) 27 U/L (10-68); BILIRUBIN - TOTAL 0.89 mg/dL (0.2-1.3); CALC OSMOLALITY 267 mosm/kg (275-300); CALCIUM 9.2 mg/dL (8.5-10.1); CARBON DIOXIDE 28.9 mmol/L (21.0-32.0); CHLORIDE - SERUM 98 mmol/L (98-107); CREATININE - SERUM 0.8 mg/dL (0.6-1.3); GLUCOSE 106 mg/dL (74-106); POTASSIUM - SERUM 4.9 mmol/L (3.5-5.1); PROTEIN - SERUM 6.6 g/dL (6.4-8.2); SODIUM 132 mmol/L (136-145); UREA NITROGEN 20 mg/dL (7-18); eGFR NON AFRICAN AMERICAN > 90 mL/min (90-120)
[2020-08-31 08:06] VITALS: BP 112/56
--- NOTE | 2020-08-31 13:40 | NUR ---
PT UP TO THE CHAIR, RESTING COMFORTABLY WITH EYES CLOSED, CALL LIGHT IN REACH, NAD NOTED, WILL CONTINUE TO MONITOR.
[2020-08-31] MEDS ORDERED: FLOMAX0.4 MG PO (17:02)
[2020-08-31 17:41] VITALS: BP 122/62
--- NOTE | 2020-08-31 17:56 | MORECARE ---
CASE MANAGEMENT DISCHARGE SUMMARY PATIENT: FRANC GOLDSMITH UNIT: [id number] ADM DATE: 08/31/20 AGE: 85 : 37 SEX: M ROOM/BED: D.6 AUTHOR: KIRSTEN GARCIA PHYSICIAN: REFERRING PHYSICIAN: ISHA BOWIE MD DATE OF SERVICE: 08/31/20 Discharge Plan Patient Name: FRANC GOLDSMITH [facility] [facility] 1935 Planned Disposition: Home with Home Health Anticipated Discharge Date: 08/31/20 Discharge Date: Expected LOS: 1 Initial Reviewer: [email or web address] Initial Review Date: 08/31/2020 Generated: 08/31/20 6:55 pm Coverage Notice Reviewer: [email or web address] Ruben Zendejas Notice Issued Date-Time: 08/30/2020 13:28 Notice Type: Medicare Outpatient Observation Notice Notice Delivered To: Patient Relationship to Patient: Self Director Of Compliance Name: Franc Goldsmith Delivery Method: HAND - Hand Delivered Cleopatra Days: Prior Verbal Notification: Recipient Understood Notice: Yes Recipient Signature: Yes Med Rec Note Co-signed by Attending: Coverage Notice Comment: CASTRO signed/given to patient, original to chart Patient Name: FRANC GOLDSMITH Page [id number] at 1756 All edits/amendments must be made on the electronic document DICTATION DATE: 08/31/201755 REGENERATION OPERATOR: CORNEL 08/31/201755 RPT#: [id number] DC DATE: STATUS: ADM IN [facility] [address] [place] [address] END OF REPORT
--- NOTE | 2020-08-31 18:03 | MORECARE ---
CASE MANAGEMENT DISCHARGE SUMMARY PATIENT: FRANC GOLDSMITH UNIT: [id number] ADM DATE: 08/31/20 AGE: 85 : 37 SEX: M ROOM/BED: D.8168 AUTHOR: RADHA,DOC PHYSICIAN: REFERRING PHYSICIAN: ISHA BOWIE MD DATE OF SERVICE: 08/31/20 Discharge Plan Patient Name: FRANC GOLDSMITH Facility: [facility]:[place] : 1935 Planned Disposition: Home with Home Health Anticipated Discharge Date: 08/31/20 Discharge Date: Expected LOS: 1 Initial Reviewer: [email or web address] Initial Review Date: 08/31/2020 Generated: 08/31/20 7:02 pm DCPIA - Discharge Planning Initial Assessment Updated by [email or web address]: Josiah Nunez on 08/31/20 6:03 pm * Is the patient Alert and Oriented? Yes * How many steps to enter\exit or inside your home? Ramp/many * PCP Dr. Lion * Pharmacy [facility] [address] * Preadmission Environment Home with Family * ADLs Partial Dependent * Partial ADLs (Assistance needed) Medication Management Transfers * Equipment Hospital Bed Rolling Walker Shower Chair * Other Equipment none * List name and contact numbers for known caregivers / representatives who currently or will assist patient after discharge: Sy lopez ([phone]) * Verbal permission to speak to the caregivers and representatives has been obtained from the patient. Yes * Community resources currently utilized Home Health * Please name any agencies selected above. [facility] * Additional services required to return to the preadmission environment? Yes * Can the patient safely return to the preadmission environment? Yes * Has this patient been hospitalized within the prior 30 days at any hospital? Yes Coverage Notice Reviewer: [id number] - Melissa Zendejas Notice Issued Date-Time: 08/30/2020 13:28 Notice Type: Medicare Outpatient Observation Notice Notice Delivered To: Patient Relationship to Patient: Self Cardiopulmonary Physical Therapist Name: Franc Goldsmith Delivery Method: HAND - Hand Delivered Cleopatra Days: Prior Verbal Notification: Recipient Understood Notice: Yes Recipient Signature: Yes Med Rec Note Co-signed by Attending: Coverage Notice Comment: GLORIA signed/given to patient, original to chart Last DP export: 08/31/20 4:56 p Patient Name: FRANC GOLDSMITH Page [id number] at 1803 All edits/amendments must be made on the electronic document DICTATION DATE: 08/31/201802 UNDERWRITING INTERN: CORNEL 08/31/201802 RPT#: [id number] DC DATE: STATUS: ADM IN [facility] [address] [place] [address] END OF REPORT
--- NOTE | 2020-08-31 18:47 | MORECARE ---
CASE MANAGEMENT DISCHARGE SUMMARY PATIENT: FRANC GOLDSMITH UNIT: [id number] ADM DATE: 08/31/20 AGE: 85 : 37 SEX: M ROOM/BED: D.2185 AUTHOR: RADHA,DOC PHYSICIAN: REFERRING PHYSICIAN: ISHA BOWIE MD DATE OF SERVICE: 08/31/20 Discharge Plan Patient Name: FRANC GOLDSMITH Facility: [facility]:[place] : 1935 Planned Disposition: Home with Home Health Anticipated Discharge Date: 08/31/20 Discharge Date: Expected LOS: 1 Initial Reviewer: [email or web address] Initial Review Date: 08/31/2020 Generated: 08/31/20 7:46 pm DCPIA - Discharge Planning Initial Assessment Updated by [email or web address]: Josiah Nunez on 08/31/20 6:03 pm * Is the patient Alert and Oriented? Yes * How many steps to enter\exit or inside your home? Ramp/many * PCP Dr. Lion * Pharmacy [facility] [address] * Preadmission Environment Home with Family * ADLs Partial Dependent * Partial ADLs (Assistance needed) Medication Management Transfers * Equipment Hospital Bed Rolling Walker Shower Chair * Other Equipment none * List name and contact numbers for known caregivers / representatives who currently or will assist patient after discharge: Sy lopez ([phone]) * Verbal permission to speak to the caregivers and representatives has been obtained from the patient. Yes * Community resources currently utilized Home Health * Please name any agencies selected above. [facility] * Additional services required to return to the preadmission environment? Yes * Can the patient safely return to the preadmission environment? Yes * Has this patient been hospitalized within the prior 30 days at any hospital? Yes External Providers External Provider: [facility] Next Contact Date: Service Request Date: Service Type: Resolution: Reviewer: Comments: Coverage Notice Reviewer: [email or web address] Ruben Zendejas Notice Issued Date-Time: 08/30/2020 13:28 Notice Type: Medicare Outpatient Observation Notice Notice Delivered To: Patient Relationship to Patient: Self Bundle Tier Name: Franc Goldsmith Delivery Method: HAND - Hand Delivered Cleopatra Days: Prior Verbal Notification: Recipient Understood Notice: Yes Recipient Signature: Yes Med Rec Note Co-signed by Attending: Coverage Notice Comment: CASTRO signed/given to patient, original to chart Reviewer: [id number] Ruben Nunez Notice Issued Date-Time: 08/31/2020 17:50 Notice Type: IM Discharge Notice Notice Delivered To: Patient Relationship to Patient: Self Bundle Tier Name: Delivery Method: HAND - Hand Delivered Cleopatra Days: Prior Verbal Notification: Recipient Understood Notice: Yes Recipient Signature: Yes Med Rec Note Co-signed by Attending: Coverage Notice Comment: DC IMM delivered, explained, signed by the patient, and placed in chart. Signed form also left with the patient. Reviewer: [email or web address] Ruben Nunez Notice Issued Date-Time: 08/31/2020 17:50 Notice Type: Patient Choice Letter Notice Delivered To: Patient Relationship to Patient: Self Bundle Tier Name: Delivery Method: HAND - Hand Delivered Cleopatra Days: Prior Verbal Notification: Recipient Understood Notice: Yes Recipient Signature: Yes Med Rec Note Co-signed by Attending: Coverage Notice Comment: [facility] Last DP export: 08/31/20 5:03 p Patient Name: FRANC GOLDSMITH Page [phone] at 1847 All edits/amendments must be made on the electronic document DICTATION DATE: 08/31/201845 LIVING COACH: CORNEL 08/31/201845 RPT#: [id number] DC DATE: STATUS: ADM IN [facility] [address] [place] [address] END OF REPORT
--- NOTE | 2020-08-31 18:59 | MORECARE ---
CASE MANAGEMENT DISCHARGE SUMMARY PATIENT: FRANC GOLDSMITH UNIT: [id number] ADM DATE: 08/31/20 AGE: 85 : 37 SEX: M ROOM/BED: D.2729 AUTHOR: RADHA,DOC PHYSICIAN: REFERRING PHYSICIAN: ISHA BOWIE MD DATE OF SERVICE: 08/31/20 Discharge Plan Patient Name: FRANC GOLDSMITH Facility: [facility]:[place] : 1935 Planned Disposition: Home with Home Health Anticipated Discharge Date: 08/31/20 Discharge Date: Expected LOS: 1 Initial Reviewer: [email or web address] Initial Review Date: 08/31/2020 Generated: 08/31/20 7:59 pm Comments DCP- Discharge Planning Updated by [id number]: Josiah Nunez on 08/31/20 5:[address] Patient Name: FRANC GOLDSMITH Admission Status: ER Accout number: [id number] Admission Date: 08-31-2020 : 1935 Admission Diagnosis: Attending: ISHA POWERS Current LOS: 1 Anticipated DC Date: 08-31-2020 Planned Disposition: Home with Home Health Primary Insurance: MEDICARE A & B Discharge Planning Comments: CM met with patient to complete DC plan and needs. CM educated patient on the CM role and verbal consent was given by patient to speak with his son, Sy ([phone]) to complete assessment. CM verified patient's address, phone number, and emergency contact phone numbers. Patient lives at home with family. At discharge patient plans to return home and Sy feels this is a safe discharge, however there is concern regarding the multiple steps to get to the ramp to enter the home but Sy feels that it is safe. CM discussed availability of home health, rehab services, and medical equipment. Patient declined SNF, IPR, and DME. Patient would like to continue HHS with [facility]. CM attempted to contact [facility], message left for call back on the phone of Simran (weekend intake nurse) at [phone]. Clinicals and HH consult was faxed to [facility]'s weekend fax number [phone]. Sy neither mentioned nor discussed other discharge needs and he is satisfied with DC plan. Transportation provider at discharge will be with Sy, the patient's son. DC IMM delivered, explained, signed by the patient, and placed in chart. Signed form also left with the patient.CM will continue to follow and will assist as needed with dc plans/needs. CM will continue to follow and will assist as needed with dc plans/needs. Mechatronics Technologist: Josiah Nunez DCPIA - Discharge Planning Initial Assessment Updated by [email or web address]: Josiah Nunez on 08/31/20 6:03 pm * Is the patient Alert and Oriented? Yes * How many steps to enter\exit or inside your home? Ramp/many * PCP Dr. Lion * Pharmacy [facility] [address] * Preadmission Environment Home with Family * ADLs Partial Dependent * Partial ADLs (Assistance needed) Medication Management Transfers * Equipment Hospital Bed Rolling Walker Shower Chair * Other Equipment none * List name and contact numbers for known caregivers / representatives who currently or will assist patient after discharge: son, Sy Goldsmith ([phone]) * Verbal permission to speak to the caregivers and representatives has been obtained from the patient. Yes * Community resources currently utilized Home Health * Please name any agencies selected above. [facility] * Additional services required to return to the preadmission environment? Yes * Can the patient safely return to the preadmission environment? Yes * Has this patient been hospitalized within the prior 30 days at any hospital? Yes Coverage Notice Reviewer: [id number] Ruben Zendejas Notice Issued Date-Time: 08/30/2020 13:28 Notice Type: Medicare Outpatient Observation Notice Notice Delivered To: Patient Relationship to Patient: Self Perioperative Assistant Name: Franc Goldsmith Delivery Method: HAND - Hand Delivered Cleopatra Days: Prior Verbal Notification: Recipient Understood Notice: Yes Recipient Signature: Yes Med Rec Note Co-signed by Attending: Coverage Notice Comment: CASTRO signed/given to patient, original to chart Reviewer: [id number] - Josiah Nunez Notice Issued Date-Time: 08/31/2020 17:50 Notice Type: IM Discharge Notice Notice Delivered To: Patient Relationship to Patient: Self Perioperative Assistant Name: Delivery Method: HAND - Hand Delivered Cleopatra Days: Prior Verbal Notification: Recipient Understood Notice: Yes Recipient Signature: Yes Med Rec Note Co-signed by Attending: Coverage Notice Comment: DC IMM delivered, explained, signed by the patient, and placed in chart. Signed form also left with the patient. Reviewer: [id number] - Josiah Nunez Notice Issued Date-Time: 08/31/2020 17:50 Notice Type: Patient Choice Letter Notice Delivered To: Patient Relationship to Patient: Self Perioperative Assistant Name: Delivery Method: HAND - Hand Delivered Cleopatra Days: Prior Verbal Notification: Recipient Understood Notice: Yes Recipient Signature: Yes Med Rec Note Co-signed by Attending: Coverage Notice Comment: [facility] Last DP export: 08/31/20 5:47 p Patient Name: FRANC GOLDSMITH Page [phone] at 1859 All edits/amendments must be made on the electronic document DICTATION DATE: 08/31/201858 EXECUTIVE VICE PRESIDENT AND CHIEF FINANCIAL OFFICER: CORNEL 08/31/201858 RPT#: [id number] DC DATE: STATUS: ADM IN [facility] [address] [place] [address] END OF REPORT
--- NOTE | 2020-08-31 19:06 | MORECARE ---
CASE MANAGEMENT DISCHARGE SUMMARY PATIENT: FRANC GOLDSMITH UNIT: [id number] ADM DATE: 08/31/20 AGE: 85 : 37 SEX: M ROOM/BED: D.2208 AUTHOR: RADHA,DOC PHYSICIAN: REFERRING PHYSICIAN: ISHA BOWIE MD DATE OF SERVICE: 08/31/20 Discharge Plan Patient Name: FRANC GOLDSMITH Facility: [facility]:[place] : 1935 Planned Disposition: Home with Home Health Anticipated Discharge Date: 08/31/20 Discharge Date: Expected LOS: 1 Initial Reviewer: [email or web address] Initial Review Date: 08/31/2020 Generated: 08/31/20 8:05 pm Comments DCP- Discharge Planning Updated by [id number]: Josiah Nunez on 08/31/20 6:[address] Received call from [facility], Simran Rose. Simran states that the patient does not receive services at their branch. Previous notes state [facility] will fax to [facility] ([phone]). CM will continue to follow and will assist as needed with dc plans/needs. DCP- Discharge Planning Updated by [email or web address]: Josiah Nunez on 08/31/20 5:[address] Patient Name: FRANC GOLDSMITH Admission Status: ER Accout number: [id number] Admission Date: 08-31-2020 : 1935 Admission Diagnosis: Attending: ISHA POWERS Current LOS: 1 Anticipated DC Date: 08-31-2020 Planned Disposition: Home with Home Health Primary Insurance: MEDICARE A & B Discharge Planning Comments: CM met with patient to complete DC plan and needs. CM educated patient on the CM role and verbal consent was given by patient to speak with his son, Sy ([phone]) to complete assessment. CM verified patient's address, phone number, and emergency contact phone numbers. Patient lives at home with family. At discharge patient plans to return home and Sy feels this is a safe discharge, however there is concern regarding the multiple steps to get to the ramp to enter the home but Sy feels that it is safe. CM discussed availability of home health, rehab services, and medical equipment. Patient declined SNF, IPR, and DME. Patient would like to continue HHS with [facility]. CM attempted to contact [facility], message left for call back on the phone of Simran (weekend intake nurse) at [phone]. Clinicals and HH consult was faxed to [facility]'s weekend fax number [phone]. Sy neither mentioned nor discussed other discharge needs and he is satisfied with DC plan. Transportation provider at discharge will be with Sy, the patient's son. DC IMM delivered, explained, signed by the patient, and placed in chart. Signed form also left with the patient.CM will continue to follow and will assist as needed with dc plans/needs. CM will continue to follow and will assist as needed with dc plans/needs. Lay Brother: Josiah Nunez DCPIA - Discharge Planning Initial Assessment Updated by [email or web address]: Josiah Nunez on 08/31/20 6:03 pm * Is the patient Alert and Oriented? Yes * How many steps to enter\exit or inside your home? Ramp/many * PCP Dr. Lion * [facility] [address] * Preadmission Environment Home with Family * ADLs Partial Dependent * Partial ADLs (Assistance needed) Medication Management Transfers * Equipment Hospital Bed Rolling Walker Shower Chair * Other Equipment none * List name and contact numbers for known caregivers / representatives who currently or will assist patient after discharge: Sy lopez ([phone]) * Verbal permission to speak to the caregivers and representatives has been obtained from the patient. Yes * Community resources currently utilized Home Health * Please name any agencies selected above. [facility] * Additional services required to return to the preadmission environment? Yes * Can the patient safely return to the preadmission environment? Yes * Has this patient been hospitalized within the prior 30 days at any hospital? Yes External Providers External Provider: OTHER-OTHER Next Contact Date: Service Request Date: Service Type: Resolution: Reviewer: Comments: Coverage Notice Reviewer: [email or web address] Ruben Zendejas Notice Issued Date-Time: 08/30/2020 13:28 Notice Type: Medicare Outpatient Observation Notice Notice Delivered To: Patient Relationship to Patient: Self Marine Architect Name: Franc Goldsmith Delivery Method: HAND - Hand Delivered Cleopatra Days: Prior Verbal Notification: Recipient Understood Notice: Yes Recipient Signature: Yes Med Rec Note Co-signed by Attending: Coverage Notice Comment: CASTRO signed/given to patient, original to chart Reviewer: [id number] Ruben Nunez Notice Issued Date-Time: 08/31/2020 17:50 Notice Type: IM Discharge Notice Notice Delivered To: Patient Relationship to Patient: Self Marine Architect Name: Delivery Method: HAND - Hand Delivered Cleopatra Days: Prior Verbal Notification: Recipient Understood Notice: Yes Recipient Signature: Yes Med Rec Note Co-signed by Attending: Coverage Notice Comment: DC IMM delivered, explained, signed by the patient, and placed in chart. Signed form also left with the patient. Reviewer: [id number] Ruben Nunez Notice Issued Date-Time: 08/31/2020 17:50 Notice Type: Patient Choice Letter Notice Delivered To: Patient Relationship to Patient: Self Marine Architect Name: Delivery Method: HAND - Hand Delivered Cleopatra Days: Prior Verbal Notification: Recipient Understood Notice: Yes Recipient Signature: Yes Med Rec Note Co-signed by Attending: Coverage Notice Comment: [facility] Last DP export: 08/31/20 5:59 p Patient Name: FRANC GOLDSMITH Page [id number] at 1906 All edits/amendments must be made on the electronic document DICTATION DATE: 08/31/201904 CUSTOMER OPERATIONS INTERN: CORNEL 08/31/201904 RPT#: [id number] DC DATE: STATUS: ADM IN [facility] [address] [place] [address] END OF REPORT
--- NOTE | 2020-08-31 20:24 | NUR ---
PT TO SON'S TRUCK VIA WHEELCHAIR WITH BELONGINGS AND DISCHARGE PAPERWORK.
--- NOTE | 2020-09-01 09:29 | MORECARE ---
CASE MANAGEMENT DISCHARGE SUMMARY PATIENT: FRANC GOLDSMITH UNIT: [id number] ADM DATE: 08/31/20 AGE: 85 : 37 SEX: M ROOM/BED: D.0362 AUTHOR: RADHA,DOC PHYSICIAN: REFERRING PHYSICIAN: ISHA BOWIE MD DATE OF SERVICE: 09/01/20 Discharge Plan Patient Name: FRANC GOLDSMITH Facility: [facility]:[place] : 1935 Planned Disposition: Home with Home Health Anticipated Discharge Date: 08/31/20 Discharge Date: 08/31/2020 Expected LOS: 1 Initial Reviewer: [email or web address] Initial Review Date: 08/31/2020 Generated: 09/01/20 10:28 am Comments DCP- Discharge Planning Updated by [id number]: Josiah Nunez on 08/31/20 6:[address] Received call from [facility], Simran Rose. Simran states that the patient does not receive services at their branch. Previous notes state [facility] will fax to [facility] ([phone]). CM will continue to follow and will assist as needed with dc plans/needs. DCP- Discharge Planning Updated by [id number]: Josiah Nunez on 08/31/20 5:[address] Patient Name: FRANC GOLDSMITH Admission Status: ER Accout number: [id number] Admission Date: 08-31-2020 : 1935 Admission Diagnosis: Attending: ISHA POWERS Current LOS: 1 Anticipated DC Date: 08-31-2020 Planned Disposition: Home with Home Health Primary Insurance: MEDICARE A & B Discharge Planning Comments: CM met with patient to complete DC plan and needs. CM educated patient on the CM role and verbal consent was given by patient to speak with his son, Sy ([phone]) to complete assessment. CM verified patient's address, phone number, and emergency contact phone numbers. Patient lives at home with family. At discharge patient plans to return home and Sy feels this is a safe discharge, however there is concern regarding the multiple steps to get to the ramp to enter the home but Sy feels that it is safe. CM discussed availability of home health, rehab services, and medical equipment. Patient declined SNF, IPR, and DME. Patient would like to continue HHS with [facility]. CM attempted to contact [facility], message left for call back on the phone of Simran (weekend intake nurse) at [phone]. Clinicals and HH consult was faxed to [facility]'s weekend fax number [phone]. Sy neither mentioned nor discussed other discharge needs and he is satisfied with DC plan. Transportation provider at discharge will be with Sy, the patient's son. DC IMM delivered, explained, signed by the patient, and placed in chart. Signed form also left with the patient.CM will continue to follow and will assist as needed with dc plans/needs. CM will continue to follow and will assist as needed with dc plans/needs. Forest Fire Officer: Josiah Nunez DCPIA - Discharge Planning Initial Assessment Updated by [email or web address]: Josiah Nunez on 08/31/20 6:03 pm * Is the patient Alert and Oriented? Yes * How many steps to enter\exit or inside your home? Ramp/many * PCP Dr. Lion * [facility] [address] * Preadmission Environment Home with Family * ADLs Partial Dependent * Partial ADLs (Assistance needed) Medication Management Transfers * Equipment Hospital Bed Rolling Walker Shower Chair * Other Equipment none * List name and contact numbers for known caregivers / representatives who currently or will assist patient after discharge: Sy lopez ([phone]) * Verbal permission to speak to the caregivers and representatives has been obtained from the patient. Yes * Community resources currently utilized Home Health * Please name any agencies selected above. [facility] * Additional services required to return to the preadmission environment? Yes * Can the patient safely return to the preadmission environment? Yes * Has this patient been hospitalized within the prior 30 days at any hospital? Yes Coverage Notice Reviewer: [id number] Ruben Zendejas Notice Issued Date-Time: 08/30/2020 13:28 Notice Type: Medicare Outpatient Observation Notice Notice Delivered To: Patient Relationship to Patient: Self Warehouse Material Handler Name: Franc Goldsmith Delivery Method: HAND - Hand Delivered Cleopatra Days: Prior Verbal Notification: Recipient Understood Notice: Yes Recipient Signature: Yes Med Rec Note Co-signed by Attending: Coverage Notice Comment: GLORIA signed/given to patient, original to chart Reviewer: [id number] Ruben Nunez Notice Issued Date-Time: 08/31/2020 17:50 Notice Type: IM Discharge Notice Notice Delivered To: Patient Relationship to Patient: Self Warehouse Material Handler Name: Delivery Method: HAND - Hand Delivered Cleopatra Days: Prior Verbal Notification: Recipient Understood Notice: Yes Recipient Signature: Yes Med Rec Note Co-signed by Attending: Coverage Notice Comment: DC IMM delivered, explained, signed by the patient, and placed in chart. Signed form also left with the patient. Reviewer: [id number] Ruben Nunez Notice Issued Date-Time: 08/31/2020 17:50 Notice Type: Patient Choice Letter Notice Delivered To: Patient Relationship to Patient: Self Warehouse Material Handler Name: Delivery Method: HAND - Hand Delivered Cleopatra Days: Prior Verbal Notification: Recipient Understood Notice: Yes Recipient Signature: Yes Med Rec Note Co-signed by Attending: Coverage Notice Comment: [facility] Last DP export: 08/31/20 6:06 p Patient Name: FRANC GOLDSMITH Page [phone] at 0929 All edits/amendments must be made on the electronic document DICTATION DATE: 09/01/20928 CHIEF COMMUNICATIONS OFFICER: CORNEL 09/01/20928 RPT#: [id number] DC DATE:08/31/20 STATUS: DIS IN [facility] [address] [place] [address] END OF REPORT
--- NOTE | 2020-09-02 08:59 | EC ---
PATIENT:HARRY GOLDSMITH DATE OF SERVICE: 08/31/20 SEX: M MEDICAL RECORD: [id number] DATE OF : [birth year] LOCATION:D.M2 D.211 AGE OF PATIENT: 85 ADMISSION DATE: 08/31/20 REFERRING PHYSICIAN: INTERPRETING PHYSICIAN: KAT PIKE MD ECHOCARDIOGRAM REPORT ECHO CHARGES 5 ECHO LIMITED Date: 08/30/20 CLINICAL DIAGNOSIS: TIA/CVA ASSESS FOR CLOTS HX OF PACEMAKER ECHOCARDIOGRAPHIC MEASUREMENTS (adult normal given) AC root (d.<3.7cm) cm LV Septum d (<1.2 cm> cm Valve Excursion cm LV Septum (systole) cm Left Atria (s.<4.0cm> 5.2 cm LVPW d(<1.2cm) cm RV (d.<2.3cm) 4.1 cm LVPW (sytole) cm LV diastole(<5.6CM) 4.3 cm MV E-F(>70mm/sec) cm LV systole 2.5 cm LVOT Diameter cm MV exc.(>10mm) cm Est.ejection fraction (50-75%) % DOPPLER: LVIT cm/sec A cm/sec E cm/sec LA cm/sec RVSP 38 mmHg LVOT cm/sec AOP1/2T m/s Asc. Ao cm/sec RVOT cm/sec RA cm/sec PA cm/sec AV Gradient Peak mmHg AV Mean mmHg AV Area cm MV Gradient Peak mmHg MV Mean mmHg MV Area cm COMMENTS: Help Desk Internship: 2 ANTHONY EASTMAN Hydrotherapist: 3 Dr. Sanford TAPE# PACS Pericardial Effusion N DATE OF SERVICE: This is a limited study with previous study done in mid January. Grossly, LVH appears present. LV internal dimensions are normal. Wall motion is normal. EF greater than or equal to 55%. Aortic valve is calcified with restriction of leaflet motion. Previous study showed moderate aortic stenosis. Left atrium is dilated. Mitral valve shows no prolapse. Mild MR. Right-sided chambers are grossly normal. Mild TR. TRANSINT:[id number] Voice Confirmation ID: [id number] DOCUMENT ID: [id number] ECHOCARDIOGRAM REPORT [id number] HARRY GOLDSMITH KAT PIKE MD at 0859 CC: [id number] DICTATION DATE: 08/31/20907 CHAINER: 08/31/20 1727 DIS IN 08/31/20 [facility] [address] [facility] [place]
--- NOTE | 2020-09-02 08:59 | CN ---
PATIENT NAME:HARRY GOLDSMITH MEDICAL RECORD: [id number] : [birth year] LOCATION:D. D.2117 ADMIT DATE: 08/31/20 ACCOUNT: [id number] CONSULTING PHYSICIAN: KAT PIKE MD REFERRING PHYSICIAN: ISHA BOWIE MD DATE OF CONSULTATION: 08/30/2020 HISTORY OF PRESENT ILLNESS: Harry Goldsmith is an 85-year-old gentleman with a history of aortic stenosis, moderate in nature, recently discharged from the hospital, admitted with TIA type symptomatology with right facial droop and slurred speech. This resolved spontaneously. He reports really just having marked muscle fatigue, weakness since recent discharge from the hospital, found to have minimally elevated troponin. We were asked to see him concerning his cardiovascular status. Currently, feels well except for leg weakness. PAST MEDICAL HISTORY: Includes; 1. History of coronary artery disease. 2. Hypertension. 3. Hyperlipidemia. 4. Aortic stenosis as described above. 5. Atrial fibrillation. 6. Diabetes mellitus. ALLERGIES: INCLUDE KEFLEX, AUGMENTIN, CEFAZOLIN, LEVAQUIN. MEDICATIONS: Include Eliquis 5 mg p.o. b.i.d., Crestor 5 mg Tuesday, Tuesday and Tuesday, sotalol 80 mg p.o. every day, quinapril 10 mg p.o. every day, potassium supplementation 20 mEq every day, Glucotrol 5 mg p.o. every day. SOCIAL HISTORY: Currently lives at home. By his report, he is independent of his ADLs. Nonsmoker, nondrinker. REVIEW OF SYSTEMS: The patient reports easy bruising but reports no swollen glands. The patient reports no fever, no night sweats, no significant weight gain, no significant weight loss. No significant exercise tolerance. The patient reports no dry eyes, no irritation, no vision change. Patient reports no difficulty hearing and no ear pain. Patient reports no frequent nose bleeds or nose and sinus problems. Patient reports on arm pain on exertion. No shortness of breath while lying down. No history of heart murmur. Patient reports no cough, no wheezing or coughing up blood. Patient reports no abdominal pain, no vomiting. Normal appetite. No diarrhea and not vomiting blood. No nausea and no constipation. Patient reports no incontinence. No difficulty urinating. No hematuria. No increased frequency. Patient reports no muscle aches. No weakness, no arthralgias, no back pain. No swelling of the extremities. Patient reports no abnormal mole, no jaundice, no rashes. Reports no loss of consciousness. No weakness and no numbness. No seizures, dizziness, or headaches. The patient reports no depression, no sleep disturbance, feeling safe in a relationship and no alcohol abuse. Patient reports on fatigue. Reports no runny nose or sinus pressure. No itching, no hives, and no frequent sneezing. PHYSICAL EXAMINATION: GENERAL: Elderly gentleman in no acute distress. VITAL SIGNS: Blood pressure 104/41, pulse 63 and regular. HEENT: Normocephalic, atraumatic. CONSULT REPORT [id number] HARRY GOLDSMITH NECK: Questionable bilateral carotid bruits versus radiation of aortic stenosis murmur. HEART: Regular, II to III/ systolic ejection murmur. LUNGS: Fair air excursion. ABDOMEN: Soft, nontender. EXTREMITIES: Pulses are 1+. There is no edema. IMPRESSION AND PLAN: Transient ischemic attack type symptomatology. Questionable bruit versus radiation of carotid murmur into the carotids. We will plan for carotid Doppler. Suspect the troponin is more of a stress leak and this is trending down flat on Rodriges curve. Continue to monitor. No contraindication to discharge from my standpoint. TRANSINT:[id number] Voice Confirmation ID: [id number] DOCUMENT ID: [id number] KAT PIKE MD at 0859 CC: [id number] DICTATION DATE: 08/30/20 1038 SPEECH THERAPY DIRECTOR: 08/30/20 1359 DIS IN 08/31/20 [place] [id number] [place] [id number]
== END 2020-08-31 20:25 | disposition home health service (06) | DRG 67 ==
LOC: D.ER 12:18 → D.MS 14:08 → D.M2 14:08 → OBSVTIME 16:21 → D.M2 16:51
PROVIDERS: Family Medicine; ADMIT Family Medicine Adult Medicine; ATTEND Family Medicine Adult Medicine
DX: I65.22 Occlusion and stenosis of left carotid artery (principal); I21.4 Non-ST elevation (NSTEMI) myocardial infarction; E87.1 Hypo-osmolality and hyponatremia; I50.32 Chronic diastolic (congestive) heart failure; E11.65 Type 2 diabetes mellitus with hyperglycemia; D64.9 Anemia, unspecified; I11.0 Hypertensive heart disease with heart failure; I25.10 Atherosclerotic heart disease of native coronary artery without angina pectoris; K22.70 Barrett's esophagus without dysplasia; K21.9 Gastro-esophageal reflux disease without esophagitis; I48.91 Unspecified atrial fibrillation; Z95.0 Presence of cardiac pacemaker